=== PATIENT | male | born 1975 | race Caucasian/White ===

== ENCOUNTER 2020-03-13 22:35 | Emergency (ER) | payer SELFPAY ==
[2020-03-13 22:42] VITALS: BP 128/56; PULSE 99; RESP 24; TEMP 36.4; O2SAT 100; BMI 34.9
--- NOTE | 2020-03-13 22:48 | XR_ITS ---
WS: [id number] Exam: XR chest 1V portable [id number] Date/Time of Exam: 03/13/2020 11:09 PM Reason For Exam: Chest pain No priors. The lungs are clear and fully expanded. Normal cardiomediastinal structures and regional bony element s. Minimal plaque atelectasis in the left base. XR/XR chest 1V portable [id number] IMPRESSION: 1. No acute cardiopulmonary finding.
--- NOTE | 2020-03-13 22:48 | ECG_ITS ---
[facility] Test Date: 2020-03-13 Pat Name: Lane Israel Department: Room: Gender: Male Shingle Carrier: : 1975 Requested By: Danielle Butler Order Number: [id number] Reading MD: ADAM WATTS Measurements Intervals [place] Rate: 63 P: 23 PA: 150 QRS: 17 QRSD: 93 T: 35 QT: 373 QTc: 382 Interpretive Statements SINUS RHYTHM No previous ECG available for comparison Electronically Signed On 03-14-2020 19:37:49 MOTOCROSS RACER by ADAM WATTS [email or web address]
[2020-03-13 23:01] VITALS: BP 111/73; PULSE 80; RESP 24; O2SAT 91
[2020-03-13] MEDS: ondansetron 2 mg/ML SDV 2 mL 4 MG IVP (23:02)
[2020-03-13 23:03] VITALS: RESP 22
[2020-03-13] MEDS: famotidine 20 mg/2 mL INJ 40 MG IVP (23:03)
[2020-03-13] MEDS: morphine 4 mg/mL SDV 1 mL IVP (23:03)
[2020-03-13 23:08] LABS: Basophils # 0.1 10^3/uL (0.0-0.1); Basophils % 0.6 %; Eosinophils # 0.5 10^3/uL (0.0-0.8); Eosinophils % 4.4 %; Hematocrit 44.8 % (42.0-52.0); Hemoglobin 14.4 g/dL (11.7-16.6); Lymphocytes # 3.6 10^3/uL (0.8-4.8); Lymphocytes % 30.9 %; Mean Corpuscular HGB Conc 32.1 g/dL (30.0-36.0); Mean Corpuscular Hemoglobin 30.1 pg (28.0-34.0); Mean Corpuscular Volume 93.5 fL (80-94); Mean Platelet Volume 11.2 fL (7.4-10.4); Monocytes % 8.6 %; Neutrophils # 6.35 10^3/uL (1.8-7.7); Neutrophils % 55.2 %; Nucleated Red Blood Cells % 0 %; Platelet Count 222 10^3/cmm (130-400); Red Blood Count 4.79 10^6/uL (4.1-5.3); Red Cell Distribution Width 13.3 % (12.1-15.1); White Blood Count 11.5 10^3/uL (4.0-10.0)
[2020-03-13 23:21] LABS: D Dimer 0.57 ug/mIFEU (0-0.59)
[2020-03-13 23:25] LABS: Troponin(5th) Baseline 6 ng/L (0-15)
[2020-03-13 23:28] LABS: INR 0.92 (0.8-1.2)
[2020-03-13 23:31] VITALS: BP 101/65; PULSE 83; RESP 27; O2SAT 92
[2020-03-13 23:31] LABS: Lactic Sepsis W/Reflex 1.4 mmol/L (0.5-2.2)
--- NOTE | 2020-03-13 23:34 | CTR_ITS ---
PROCEDURE INFORMATION: Exam: CT Chest With Contrast Exam date and time: 03/13/2020 11:51 PM Age: 45 years old Clinical indication: Abdominal pain; Localized; Left-sided chest pain; Additional info: Severe left sided chest pain TECHNIQUE: Imaging protocol: Computed tomography of the chest with intravenous contrast. Radiation optimization: All CT scans at this facility use at least one of these dose optimization techniques: automated exposure control; mA and/or kV adjustment per patient size (includes targeted exams where dose is matched to clinical indication); or iterative reconstruction. Contrast material: OMNI 300; Contrast volume: 95 ml; Contrast route: INTRAVENOUS (IV); COMPARISON: No relevant prior studies available. RADIATION DOSE METRICS: Total DLP (mGy-cm): 2276.34 FINDINGS: Lungs: There is ill-defined dependent opacity in both lower lobes. There is similar opacity in the inferior lingula. There is a 4 mm noncalcified nodule in the right middle lobe on axial series 4, image 26. Pleural space: Unremarkable. No pneumothorax. No pleural effusion. Heart: Heart size is normal. There is no pericardial effusion. Pulmonary arteries: The central pulmonary arteries are unremarkable. Aorta: The aorta is unremarkable. There is no aneurysm. Lymph nodes: There is no mediastinal or hilar lymphadenopathy. Bones/joints: Unremarkable. No acute fracture. Soft tissues: The extrathoracic soft tissues are unremarkable. IMPRESSION: 1. Opacity in the lower lungs bilaterally. Probable subsegmental atelectasis. Superimposed infection cannot be unequivocally excluded. 2. 4 mm right middle lobe pulmonary nodule. For patients at low risk (minimal or absent history of smoking and of other known risk factors), no routine follow-up is indicated. For patients at high risk (history of smoking or of other known risk factors), consider optional CT Chest at 12 months. (Reference: Chey) REFERENCES: Chey Guadarrama, et al. Guidelines for Management of Incidental Pulmonary Nodules Detected on CT Images: From the Fleischner Society 2017. Radiology. 2017;284(1):228-243. PROCEDURE INFORMATION: Exam: CT Abdomen And Pelvis With Contrast Exam date and time: 03/13/2020 11:51 PM Age: 45 years old Clinical indication: Abdominal pain; Localized; Left-sided chest pain; Additional info: Severe left sided chest pain TECHNIQUE: Imaging protocol: Computed tomography of the abdomen and pelvis with intravenous contrast. Radiation optimization: All CT scans at this facility use at least one of these dose optimization techniques: automated exposure control; mA and/or kV adjustment per patient size (includes targeted exams where dose is matched to clinical indication); or iterative reconstruction. Contrast material: OMNI 300; Contrast volume: 95 ml; Contrast route: INTRAVENOUS (IV); COMPARISON: No relevant prior studies available. RADIATION DOSE METRICS: Total DLP (mGy-cm): 2276.34 FINDINGS: Liver: The liver is normal. Gallbladder and bile ducts: The gallbladder is normal. There is no biliary dilation. Pancreas: The pancreas is unremarkable. Spleen: Splenic size is normal. There are scattered calcifications consistent with healed granulomas. Adrenal glands: The adrenal glands are unremarkable. Kidneys and ureters: The kidneys are unremarkable. No hydronephrosis or stones. No ureteral dilation. Stomach and bowel: The stomach is decompressed, preventing meaningful evaluation of wall thickness. The small bowel is nondilated. The colon is unremarkable. Appendix: The appendix is normal. Intraperitoneal space: There is no free air or significant intraperitoneal free fluid. Vasculature: There is mild aortic atherosclerotic disease. The portal, splenic and superior mesenteric veins are patent. Lymph nodes: There is no lymphadenopathy in the retroperitoneum, mesentery, pelvis or inguinal regions. Urinary bladder: The urinary bladder is unremarkable. Reproductive: The prostate and seminal vesicles are unremarkable. Bones/joints: Bones are unremarkable. Soft tissues: The abdominal wall is intact. CT/CT chest abd pel w con* IMPRESSION: No acute findings. Radiation Dose CTDIVOL = (mGy): DLP = 2276.34~2276.34 (mGy-cm)
[2020-03-13 23:35] LABS: Alanine Aminotransferase 41 U/L (0-41); Albumin Level 4.4 g/dL (3.5-5.2); Alkaline Phosphatase 119 IU/L (40-130); Anion Gap 14.3 (5-19); Aspartate Amino Transferase 26 U/L (0-40); Blood Urea Nitrogen 12 mg/dL (6-20); Calcium 9.4 mg/dL (8.5-10.5); Carbon Dioxide 30 mmol/L (22-29); Chloride 99 mmol/L (98-107); Creatinine Clr Calc Pharmacy 136.5137; Globulin 2.5 g/dL (1.3-4.6); Glomerular Filtration Rate 104.5 mL/min (90-130); Glucose 98 mg/dL (65-115); Lipase 31 U/L (13-60); NT Pro B Type Natriuretic Pept 14 pg/mL (0-125); Osmolality Calculated 288 mOsm/kg (285-295); Potassium 4.3 mmol/L (3.5-5.1); Sodium 139 mmol/L (136-145); Total Bilirubin 0.3 mg/dL (0.15-1.2); Total Protein 6.9 g/dL (6.6-8.7)
[2020-03-14 00:01] VITALS: BP 93/60; PULSE 87; RESP 22; O2SAT 94
[2020-03-14] MEDS: iohexol 300 mg/mL 100 mL Btl IV (00:49)
[2020-03-14 01:00] VITALS: BP 118/73; RESP 20; O2SAT 95
[2020-03-14 01:33] LABS: Troponin 5 2HR Delta 0 ABS# (0-10)
[2020-03-14] MEDS: ketorolac 30 mg/mL INJ 15 MG IVP (02:08)
[2020-03-14] MEDS: doxycycline 100 mg Tablet PO (02:10)
[2020-03-14 02:24] VITALS: BP 99/73; PULSE 78; RESP 21; O2SAT 93
--- NOTE | 2020-03-14 02:34 | W.ED.CHESTPA ---
HPI - Chest Pain General: Chief Complaint: Chest Pain Stated Complaint: Chest pain /breathing issues Time Seen by Provider: 03/13/20 22:48 History of Present Illness: HPI narrative: This patient is a 45-year-old male who presents with severe left-sided chest pain. He said it started out of the blue while he was just sitting and resting. He said he does not feel like he can breathe because the pain is worse when he tries to take a deep breath. He is never had anything like this before. He reports a history of bronchitis and frequent cough. He is a smoker. He just got out of [facility] and does not have a primary care doctor yet. He denies a history of heart attacks or blood clots. He does complain of feeling nauseous. He is pale and uncomfortable appearing MD complaint: chest pain Onset (ago): hour(s) (2) Timing of current episode: constant Prior episodes: No Onset: during rest Pain location: left chest Pain radiation: none Quality: sharp Relieving factors: nothing Exacerbating factors: inspiration, supine, palpation and movement Associated symptoms: Reports diaphoresis, dyspnea and nausea Treatment prior to arrival: none Review of Systems General: Reports: 10 or more systems reviewed and unremarkable except in HPI and below Const: Reports: diaphoresis Eyes: Denies: change in vision ENMT: Denies: odynophagia Card: Reports: chest pain; Denies: swelling of feet/ankles Resp: Reports: dyspnea and productive cough (Chronic, due to smoking); Denies: non-productive cough GI: Reports: nausea : Denies: flank pain Musc: Denies: neck pain or back pain Skin/Breast: Denies: rash Neuro: Denies: headache(s), numbness in extremities or weakness in extremities Omar/Lymph: Denies: easy bruising or easy bleeding PFSH ED PFSH: Social History Current gender identity: Male Physical Exam Const: COMMON NORMALS: patient oriented x3 and alert GENERAL APPEARANCE: cooperative, in distress and anxious HENMT: HEAD & SCALP: normal to inspection FACE & SINUS: normal facial exam Eye: GENERAL EYE: appearance normal, both eyes and all related structures Neck/C-Spine: COMMON NORMALS: supple, no meningeal signs and no JVD Chest: COMMONS NORMALS: normal inspection of the chest Resp: COMMON NORMALS: normal respiratory effort and clear to auscultation bilaterally EFFORT & INSPECTION: Yes other (Splinting) AUSCULTATION: clear to auscultation bilaterally and diminished lung sounds Cardio: COMMON NORMALS: no JVD, regular rate, regular rhythm and No murmurs present (Cardio) RATE: regular rate RHYTHM: regular rhythm GI: COMMON NORMALS: Normal to inspection, nondistended, normoactive bowel sounds present, Soft to palpation and non-tender INSPECTION: Yes normal to inspection AUSCULTATION: Yes normoactive bowel sounds PALPATION: Yes Soft to palpation Back/Pelvis: COMMON NORMALS: thoracic and lumbar spine normal to inspection Extremity: COMMON NORMALS: normal to inspection NARRATIVE EXTREMITY EXAM: No edema or calf tenderness Neuro: COMMON NORMALS: patient oriented x3, moves all extremities, no focal motor deficits and no sensory deficits noted SENSORIUM/ORIENTATION: Yes alert MENINGEAL SIGNS: Yes no meningeal signs Psych: COMMON NORMALS: mental status grossly normal, cooperative and normal affect ATTITUDE: Yes agitated Skin: COMMON NORMALS: no rashes or lesions noted and turgor normal GENERAL SKIN EXAM: no rashes or lesions noted and turgor normal Course ED course: The patient was immediately brought back to room 11. He was given IV morphine and Zofran and later IV Toradol. He reported some improvement with the morphine. He later had some improvement after the Toradol. Work-up was notable for normal EKGs and troponins. A CT of the chest abdomen and pelvis was done and this did not reveal any obvious cause for his symptoms. He does have some atelectasis and the radiologist notes that infection cannot be ruled out. Because of that and his history of smoking about a put him on some doxycycline. No abnormalities in the abdomen. He did have a nodule in his chest that will require follow-up in 12 months and I discussed this with the patient. Clinically he has pleurisy. He will be put on naproxen as well as the doxycycline. I have asked the showcase maker to consult with him to assist in finding a primary care physician. He understands return to the ER if new or worse symptoms. Vital Signs: Vital signs: Vital Signs Temperature 97.5 F L 03/13/20 22:42 Pulse Rate 78 03/14/20 02:24 Respiratory Rate 21 H 03/14/20 02:24 Blood Pressure 99/73 03/14/20 02:24 Pulse Oximetry 93 03/14/20 02:24 MDM - Chest Pain Lab Data: Labs: Lab Results 03/13/20 03/13/20 03/13/20 Range/Units 22:52 22:52 22:52 WBC 11.5 H (4.0-10.0) 10^3/ uL RBC 4.79 (4.1-5.3) 10^6/u L Hgb 14.4 (11.7-16.6) g/dL Hct 44.8 (42.0-52.0) % MCV 93.5 (80-94) fL MCH 30.1 (28.0-34.0) pg MCHC 32.1 (30.0-36.0) g/dL RDW 13.3 (12.1-15.1) % Plt Count 222 (130-400) 10^3/c mm MPV 11.2 H (7.4-10.4) fL Neut % (Auto) 55.2 % Lymph % (Auto) 30.9 % [place] % (Auto) 8.6 % Eos % (Auto) 4.4 % Baso % (Auto) 0.6 % Neut # (Auto) 6.35 (1.8-7.7) 10^3/u L Lymph # (Auto) 3.6 (0.8-4.8) 10^3/u L [place] # (Auto) 1.0 H (0.2-0.9) 10^3/u L Eos # (Auto) 0.5 (0.0-0.8) 10^3/u L Baso # (Auto) 0.1 (0.0-0.1) 10^3/u L Nucleated RBC % (a uto) 0 % Nucleated RBCs # 0.0 /100WBC PT 12.60 (12.1-14.9) SECO NDS INR 0.92 (0.8-1.2) D-Dimer 0.57 (0-0.59) ug/mIFE U Sodium 139 (136-145) mmol/L Potassium 4.3 (3.5-5.1) mmol/L Chloride 99 (98-107) mmol/L Carbon Dioxide 30 H (22-29) mmol/L Anion Gap 14.3 (5-19) BUN 12 (6-20) mg/dL Creatinine 0.8 (0.7-1.2) mg/dL GFR Calculation 104.5 (90-130) mL/min Glucose 98 (65-115) mg/dL Calculated Osmolal ity 288 (285-295) mOsm/k g Lactic Acid (0.5-2.2) mmol/L Calcium 9.4 (8.5-10.5) mg/dL Total Bilirubin 0.3 (0.15-1.2) mg/dL AST 26 (0-40) U/L ALT 41 (0-41) U/L Alkaline Phosphata se 119 (40-130) IU/L Troponin T Baselin e (0-15) ng/L Troponin T 120 Min rosy (0-15) ng/L Delta Troponin T (0-10) ABS# NT-Pro-B Natriuret Pep 14 (0-125) pg/mL Total Protein 6.9 (6.6-8.7) g/dL Albumin 4.4 (3.5-5.2) g/dL Globulin 2.5 (1.3-4.6) g/dL Lipase 31 (13-60) U/L 03/13/20 03/13/20 03/14/20 Range/Units 22:52 23:00 01:00 WBC (4.0-10.0) 10^3/ uL RBC (4.1-5.3) 10^6/u L Hgb (11.7-16.6) g/dL Hct (42.0-52.0) % MCV (80-94) fL MCH (28.0-34.0) pg MCHC (30.0-36.0) g/dL RDW (12.1-15.1) % Plt Count (130-400) 10^3/c mm MPV (7.4-10.4) fL Neut % (Auto) % Lymph % (Auto) % [place] % (Auto) % Eos % (Auto) % Baso % (Auto) % Neut # (Auto) (1.8-7.7) 10^3/u L Lymph # (Auto) (0.8-4.8) 10^3/u L [place] # (Auto) (0.2-0.9) 10^3/u L Eos # (Auto) (0.0-0.8) 10^3/u L Baso # (Auto) (0.0-0.1) 10^3/u L Nucleated RBC % (a uto) % Nucleated RBCs # /100WBC PT (12.1-14.9) SECO NDS INR (0.8-1.2) D-Dimer (0-0.59) ug/mIFE U Sodium (136-145) mmol/L Potassium (3.5-5.1) mmol/L Chloride (98-107) mmol/L Carbon Dioxide (22-29) mmol/L Anion Gap (5-19) BUN (6-20) mg/dL Creatinine (0.7-1.2) mg/dL GFR Calculation (90-130) mL/min Glucose (65-115) mg/dL Calculated Osmolal ity (285-295) mOsm/k g Lactic Acid 1.4 (0.5-2.2) mmol/L Calcium (8.5-10.5) mg/dL Total Bilirubin (0.15-1.2) mg/dL AST (0-40) U/L ALT (0-41) U/L Alkaline Phosphata se (40-130) IU/L Troponin T Baselin e 6 (0-15) ng/L Troponin T 120 Min rosy 6.00 (0-15) ng/L Delta Troponin T 0 (0-10) ABS# NT-Pro-B Natriuret Pep (0-125) pg/mL Total Protein (6.6-8.7) g/dL Albumin (3.5-5.2) g/dL Globulin (1.3-4.6) g/dL Lipase (13-60) U/L Discharge Plan Discharge Patient Disposition: Home Clinical Impression: Pleurisy, Pulmonary nodule Condition: Stable Prescriptions: New Naprosyn 500 mg tablet 500 mg PO Q12H PRN (Reason: pain) Qty: 20 RF: 0 doxycycline hyclate 100 mg capsule 100 mg PO BID 10 Days Qty: 20 RF: 0 Discharge Orders: Discharge Order (Routine); Ordered 03/14/20 Ordered By: Danielle Parks Discharge Diet: Usual diet Discharge Activity: Resume usual activity Patient Instructions: Pleurisy (ED), Pneumonia (ED) Activity Restrictions/Additional Instructions: Return to the ER if worsening pain, shortness of breath, vomiting or any other new or concerning symptoms. Use the naproxen as prescribed, twice a day for pain. Rest. Continue to try to quit smoking. Take the antibiotics as prescribed as well. Our showcase maker should contact to to assist with finding a primary care provider. Your CT today showed a pulmonary nodule and you should have another CT of your chest in about a year to make sure that has not changed. Coding Level of Care Code ED Prototype Carpenter for Ghanshyam Nathan
--- NOTE | 2020-03-14 10:00 | DCPLANNER ---
gardening manager had message to speak with patient about getting established with a primary care physician. gardening manager called patient and he stated that he would like to schedule a follow up appointment with Dr. Ludwig. gardening manager called [facility], spoke with Raegan, a follow up appointment is scheduled for Friday, March 20, 2020 at 9:[address] Ludwig. gardening manager called patient and gave patient the appointment information. Patient stated that he would attend the appointment.
--- NOTE | 2020-04-10 14:32 | DCPLANNER ---
Patient had a follow up appointment scheduled for 03.20.20 with [facility] - patient did attend appointment.
== END 2020-03-14 02:34 | disposition home or self-care (01) ==
PROVIDERS: Emergency Provider Emergency Medicine
DX: R09.1 Pleurisy (principal); R91.1 Solitary pulmonary nodule
CPT/HCPCS: 12345; 71045; 71260; 74177; 80053; 83605; 83690; 83880; 84484; 85025; 85378; 85610; 93005; 96374; 96375; 99283; 99284; J1885; J2270; J2405; J3490; Q9967

== ENCOUNTER → 2020-03-20 10:37 | Outpatient (BNVA) | payer SELFPAY | PROVIDERS: Visit Provider Family Medicine Adult Medicine | DX: R53.82 Chronic fatigue, unspecified (principal); R30.0 Dysuria; Z79.899 Other long term (current) drug therapy | CPT/HCPCS: 84443 ==

== ENCOUNTER 2020-10-09 19:33 | Emergency (ER) | payer SELFPAY ==
[2020-10-09 19:41] VITALS: PULSE 92; RESP 24; TEMP 36.3; O2SAT 98; BMI 35.7
[2020-10-09] MEDS: ketorolac 30 mg/mL INJ 15 MG IVP (20:35)
[2020-10-09] MEDS: diphenhydrAMINE 50 mg/mL SDV 1mL 25 MG IVP (20:35)
[2020-10-09 20:37] LABS: Basophils # 0.1 10^3/uL (0.0-0.1); Basophils % 0.8 %; Eosinophils # 0.5 10^3/uL (0.0-0.8); Eosinophils % 3.8 %; Hematocrit 42.9 % (42.0-52.0); Lymphocytes # 3.9 10^3/uL (0.8-4.8); Lymphocytes % 32.6 %; Mean Corpuscular Hemoglobin 31.1 pg (28.0-34.0); Mean Platelet Volume 11.5 fL (7.4-10.4); Monocytes # 0.8 10^3/uL (0.2-0.9); Monocytes % 6.9 %; Neutrophils # 6.66 10^3/uL (1.8-7.7); Neutrophils % 55.6 %; Nucleated Red Blood Cells % 0 %; Platelet Count 168 10^3/cmm (130-400); Red Blood Count 4.82 10^6/uL (4.1-5.3); Red Cell Distribution Width 12.3 % (12.1-15.1)
[2020-10-09] MEDS: sodium chloride 0.9% 1,000 ML 999 ML IV (20:37)
[2020-10-09] MEDS: lidocaine 2% viscous 1.667 ML, diphenhydrAMINE oral liq 4.165 MG, aluminum-mag hydrox-s... MUCOUS MEM (20:38)
--- NOTE | 2020-10-09 20:40 | ED_ITS ---
HPI - Allergic Reaction General: Chief complaint: Allergic Reaction Stated complaint: ALLERGIC REACTION Time Seen by Provider: 10/09/20 19:52 History of Present Illness: HPI narrative: The patient is a 45-year-old male who comes to the ER complaining of severe tongue and lip pain causing him to be short of breath. He says he is homeless and living in a house with a tour the floors out. He also states he has not had his psychiatric medications in months due to being homeless. He has been living with a friend on the couch. He has ulcerations to his lips and tongue that appear to be herpetic in nature. Associated symptoms: Deny abdominal pain, dizziness or tongue swelling Review of Systems General: Reports: 10 or more systems reviewed and unremarkable except in HPI and below Const: Denies: fatigue Eyes: Denies: change in vision, blurry vision or eye redness ENMT: Reports: other (Tongue and lip pain); Denies: throat pain, swelling of lips/tongue, ear or mastoid pain or nasal congestion Card: Denies: chest pain, palpitations, irregular heart rhythm, edema, dyspnea on exertion or orthopnea Resp: Denies: dyspnea, productive cough or non-productive cough GI: Denies: abdominal pain, diarrhea or GI cramping : Denies: flank pain, urinary frequency or urinary urgency Musc: Denies: neck pain, back pain, extremity pain, joint pain, joint redness, limited range of motion or muscle weakness Skin/Breast: Denies: rash, pruritus, erythema, skin pain or skin tenderness Neuro: Denies: headache(s), numbness in extremities, weakness in extremities, sensory changes, difficulty walking, dizziness, confusion or Slurred speech present Psych: Denies: anxiety or depression Endo: Denies: polyuria All/Imm: Denies: urticaria, throat swelling or tongue swelling PFSH ED PFSH: Medical History (Updated 10/09/20 @ 21:39 by Anthony Gee MD) Anxiety Bipolar 1 disorder Bipolar 2 disorder Bronchitis COPD (chronic obstructive pulmonary disease) with chronic bronchitis Hypoxia, sleep related [place] use Lumbar disc disease with radiculopathy Family History Other Cancer Psychiatric illness Social History Smoking and tobacco status: current every day smoker cigarettes Packs smoked per day: 0.5 and smokeless tobacco Smokeless tobacco user: snuff Alcohol intake: current Alcohol intake frequency: holidays/special occasions only Marital status: Number of children: 0 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 Current gender identity: Male Physical Exam Const: COMMON NORMALS: no acute distress, average body habitus, patient oriented x3, no limitations, healthy appearing, alert and well nourished GENERAL APPEARANCE: cooperative, comfortable, well kempt and well developed ORIENTATION/CONSCIOUSNESS: Yes awake, Yes oriented to person, Yes oriented to place and Yes oriented to time HENMT: COMMON NORMALS: normocephalic, external ears normal and Normal external nose present HEAD & SCALP: normal to inspection and normocephalic NOSE: Normal external nose present EXTERNAL EAR: Yes external ears normal MOUTH: Normal oral and palatal mucosa present THROAT: posterior oropharynx normal OTHER: Herpetic stomatitis and herpes labialis. No significant swelling of tongue. Airway clear. Eye: COMMON NORMALS: Equal, round and reactive pupils present and EOMs intact bilaterally GENERAL EYE: appearance normal, both eyes and all related structures PUPIL: Yes Equal, round and reactive pupils present Neck/C-Spine: COMMON NORMALS: full ROM, no lymphadenopathy, no meningeal signs and no JVD GENERAL: Yes normal visual inspection Lymph: LYMPHATIC: no lymphadenopathy noted Chest: COMMONS NORMALS: normal inspection of the chest and normal palpation of entire chest wall Resp: COMMON NORMALS: normal respiratory effort, No retractions, No use of accessory muscles, clear to auscultation bilaterally and percussion normal EFFORT & INSPECTION: Yes able to speak in complete sentences AUSCULTATION: clear to auscultation bilaterally PERCUSSION: percussion normal Cardio: COMMON NORMALS: no JVD, regular rate, regular rhythm, S1 normal heart sound present, S2 normal heart sound present and Peripheral pulses 2+ throughout RATE: regular rate RHYTHM: regular rhythm HEART SOUNDS: S1 normal heart sound present and S2 normal heart sound present PERIPHERAL PULSES: Peripheral pulses 2+ throughout GI: COMMON NORMALS: Normal to inspection, nondistended, normoactive bowel sounds present, Soft to palpation, non-tender and no masses INSPECTION: Yes normal to inspection PALPATION: Yes Soft to palpation : COMMON NORMALS: Yes no CVA tenderness BLADDER/KIDNEY EXAM: Yes no CVA tenderness Back/Pelvis: COMMON NORMALS: no CVA tenderness, thoracic and lumbar spine normal to inspection, no thoracic nor lumbar tenderness and thoraco-lumbar ROM normal Extremity: COMMON NORMALS: normal to inspection, full ROM, capillary refill normal, no joint enlargement and no pedal edema GENERAL: Yes normal exam ex cept as noted Neuro: COMMON NORMALS: patient oriented x3, CN's II-XII intact bilaterally, moves all extremities, no focal motor deficits, no sensory deficits noted and gait normal SENSORIUM/ORIENTATION: Yes alert, Yes oriented to person, Yes oriented to place and Yes oriented to time MENINGEAL SIGNS: Yes no meningeal signs Psych: COMMON NORMALS: mental status grossly normal, Normal thought process present, cooperative, normal affect and speech normal APPEARANCE: Yes well kempt ATTITUDE: Yes calm SPEECH: Yes normal speech THOUGHT PROCESS: Normal thought process present Skin: COMMON NORMALS: no rashes or lesions noted GENERAL SKIN EXAM: no rashes or lesions noted Course Vital Signs: Vital signs: Vital Signs Temperature 97.3 F L 10/09/20 19:41 Pulse Rate 82 10/09/20 21:23 Respiratory Rate 18 10/09/20 21:23 Blood Pressure 132/75 10/09/20 21:23 Pulse Oximetry 92 10/09/20 21:23 MDM - Allergic Reaction MDM Narrative: Medical decision making narrative: The patient has a significant herpes stomatitis and labialis infection. He was given Magic mouthwash with improvement of his pain and swelling. He says he is breathing much better after that and talking as well. He is drinking liquids well here. Stable for discharge. Send him home with a prescription for acyclovir and Magic mouthwash as well as a refill of his inhalers. Recommended he follow-up with psych and primary care physician within a week. ER with worsening symptoms at any time Lab Data: Labs: Lab Results 10/09/20 10/09/20 10/09/20 Range/Units 20:30 20:30 20:30 WBC 12.0 H (4.0-10.0) 10^3/ uL RBC 4.82 (4.1-5.3) 10^6/u L Hgb 15.0 (11.7-16.6) g/dL Hct 42.9 (42.0-52.0) % MCV 89.0 (80-94) fL MCH 31.1 (28.0-34.0) pg MCHC 35.0 (30.0-36.0) g/dL RDW 12.3 (12.1-15.1) % Plt Count 168 (130-400) 10^3/c mm MPV 11.5 H (7.4-10.4) fL Neut % (Auto) 55.6 % Lymph % (Auto) 32.6 % [place] % (Auto) 6.9 % Eos % (Auto) 3.8 % Baso % (Auto) 0.8 % Neut # (Auto) 6.66 (1.8-7.7) 10^3/u L Lymph # (Auto) 3.9 (0.8-4.8) 10^3/u L [place] # (Auto) 0.8 (0.2-0.9) 10^3/u L Eos # (Auto) 0.5 (0.0-0.8) 10^3/u L Baso # (Auto) 0.1 (0.0-0.1) 10^3/u L Nucleated RBC % (a uto) 0 % Nucleated RBCs # 0.0 /100WBC Sodium 139 (136-145) mmol/L Potassium 3.9 (3.5-5.1) mmol/L Chloride 103 (98-107) mmol/L Carbon Dioxide 22 (22-29) mmol/L Anion Gap 17.9 (5-19) BUN 11 (6-20) mg/dL Creatinine 0.9 (0.7-1.2) mg/dL GFR Calculation 91.3 (90-130) mL/min Glucose 81 (65-115) mg/dL Calculated Osmolal ity 286 (285-295) mOsm/k g Lactate 2.6 H (0.5-2.2) mmol/L Calcium 9.7 (8.5-10.5) mg/dL Total Bilirubin 0.3 (0.15-1.2) mg/dL AST 18 (0-40) U/L ALT 18 (0-41) U/L Alkaline Phosphata se 105 (40-130) IU/L Total Protein 7.1 (6.6-8.7) g/dL Albumin 4.2 (3.5-5.2) g/dL Globulin 2.9 (1.3-4.6) g/dL Discharge Plan Discharge Patient Disposition: Home Clinical Impression: Herpes stomatitis Condition: Stable Prescriptions: New acyclovir 400 mg tablet 400 mg PO Q8H Qty: 30 RF: 0 Continued hydrocodone-acetaminophen 5-325 mg tablet 1 tab PO Q6H PRN (Reason: pain) 7 Days Qty: 28 RF: 0 diclofenac sodium 25 mg tablet,delayed release (DR/EC) 25 mg PO BID Qty: 30 RF: 1 lithium carbonate 300 mg tablet extended release 300 mg PO BEDTIME RF: 0 trazodone 150 mg tablet 150 mg PO BEDTIME RF: 0 Benadryl 25 mg Capsule 25 mg PO QID PRN (Reason: Allergy Symptoms) RF: 0 ibuprofen 200 mg Tablet 200 - 400 mg PO Q4H PRN (Reason: PAIN/FEVER) RF: 0 albuterol sulfate 90 mcg/actuation HFA aerosol inhaler 2 puff inhalation Q6H PRN (Reason: shortness of breath or wheezing) Qty: 18 RF: 5 buspirone 15 mg tablet 15 mg PO BID PRN (Reason: anxiety) 30 Days Qty: 60 RF: 3 Symbicort 160-4.5 mcg/actuation HFA aerosol inhaler 2 puff inhalation BID Qty: 10.2 RF: 5 Discharge Orders: Discharge ED (Routine); Ordered 10/09/20 Ordered By: Anthony Gee Referrals: David Ludwig MD [Primary Care Provider] - Discharge Diet: Advance as tolerated Discharge Activity: Resume usual activity Patient Instructions: Opioid Safety, Oral Herpes Activity Restrictions/Additional Instructions: You have a herpetic infection of your mouth and tongue. Please take the acyclovir to help speed up recovery from this infection and use the Magic mouthwash to help you eat meals. Return to the ER with worsening symptoms or difficulty breathing or increased swelling. Otherwise follow-up with your primary care physician in a few days to monitor improvement of your symptoms. Also follow-up with psychiatry this week to get refills on your psychiatric medications. Coding Level of Care Code ED Clearance Coordinator for Ghanshyam Nathan
[2020-10-09 20:50] VITALS: BP 135/83; PULSE 82; RESP 18; O2SAT 98
[2020-10-09 21:10] LABS: Lactate (Lactic Acid level) 2.6 mmol/L (0.5-2.2)
[2020-10-09 21:12] LABS: Alanine Aminotransferase 18 U/L (0-41); Albumin Level 4.2 g/dL (3.5-5.2); Alkaline Phosphatase 105 IU/L (40-130); Blood Urea Nitrogen 11 mg/dL (6-20); Calcium 9.7 mg/dL (8.5-10.5); Carbon Dioxide 22 mmol/L (22-29); Chloride 103 mmol/L (98-107); Globulin 2.9 g/dL (1.3-4.6); Glomerular Filtration Rate 91.3 mL/min (90-130); Glucose 81 mg/dL (65-115); Osmolality Calculated 286 mOsm/kg (285-295); Sodium 139 mmol/L (136-145); Total Bilirubin 0.3 mg/dL (0.15-1.2); Total Protein 7.1 g/dL (6.6-8.7)
[2020-10-09 21:23] VITALS: BP 132/75; PULSE 82; RESP 18; O2SAT 92
[2020-10-09 21:37] LABS: Anion Gap 17.9 (5-19); Aspartate Amino Transferase 18 U/L (0-40); Potassium 3.9 mmol/L (3.5-5.1)
[2020-10-09] MEDS: acyclovir 400 mg Tablet PO (22:14)
[2020-10-09 22:21] VITALS: BP 100/64; PULSE 90; RESP 16; O2SAT 98
--- NOTE | 2020-10-10 10:30 | DCPLANNER ---
manager convention had message to schedule a follow up appointment for patient with a primary care physician and [facility]. manager convention spoke with patient, he stated that he would like help in getting established with a primary care. manager convention called [facility], spoke with Mckayla, gave clinic patients information. A follow up appointment was scheduled for Thursday, October 15, 2020 at 10:[address] Ludwig. manager convention also called [facility] scheduling, spoke with Ct, a follow up appointment was scheduled for September at 11:[address] Bray. manager convention called patient and gave patient information for both appointments. manager convention also gave patient the phone numbers for the clinics, so that he could call and cancel the appointments if needed. manager convention explained to patient that he would need to call and cancel appointments and not no show the appointments.
--- NOTE | 2020-11-22 07:24 | DCPLANNER ---
Patient had a follow up appointment scheduled for 10.11.20 at [facility] - patient did attend appointment. Patient had a follow up appointment scheduled for 10.15.[address] Ludwig at [facility] to establish care - patient did attend appointment.
== END 2020-10-09 22:22 | disposition home or self-care (01) ==
PROVIDERS: Emergency Provider Family Medicine; PCP Family Medicine Adult Medicine
DX: B00.2 Herpesviral gingivostomatitis and pharyngotonsillitis (principal); J44.9 Chronic obstructive pulmonary disease, unspecified; F17.210 Nicotine dependence, cigarettes, uncomplicated
CPT/HCPCS: 80053; 83605; 85025; 96361; 96374; 96375; 99284; J1200; J1885; J7030; J8499

== ENCOUNTER 2020-11-15 17:57 | Emergency (ER) | payer SELFPAY ==
[2020-11-15 18:07] VITALS: BP 120/78; PULSE 97; RESP 18; TEMP 37.3; O2SAT 97; BMI 30.9
--- NOTE | 2020-11-15 18:48 | W.ED.EXTPRO ---
HPI - Extremity Problem General: Chief complaint: Extremity Injury, Upper Stated complaint: FINGER NUMBNESS/TINGLING Time Seen by Provider: 11/15/20 18:48 History of Present Illness: HPI Narrative: 45-year-old male patient comes in with tenderness and redness to the nail area of the left ring finger. Patient is alert and oriented. Patient reporting cleaning out a house about a week ago and got something under his nail. Patient was able to remove the splinter from under his nail but over the last 2 days he has noticed some redness and tenderness to the nail bed. Patient appears well. Patient appears no acute distress. Review of Systems General: Reports: 10 or more systems reviewed and unremarkable except in HPI and below Musc: Reports: other (Fourth digit nail redness and swelling.) PFSH ED PFSH: Medical History Anxiety Bipolar 1 disorder Bipolar 2 disorder Bronchitis COPD (chronic obstructive pulmonary disease) with chronic bronchitis Hypoxia, sleep related [place] use Lumbar disc disease with radiculopathy Family History Other Cancer Psychiatric illness Social History Smoking and tobacco status: current every day smoker cigarettes Packs smoked per day: 0.5 and smokeless tobacco Smokeless tobacco user: snuff Alcohol intake: current Alcohol intake frequency: holidays/special occasions only Marital status: Number of children: 0 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 Current gender identity: Male Physical Exam Const: COMMON NORMALS: no acute distress and patient oriented x3 GENERAL APPEARANCE: cooperative HENMT: COMMON NORMALS: normocephalic and Normal external nose present HEAD & SCALP: normal to inspection and normocephalic NOSE: Normal external nose present MOUTH: Normal oral and palatal mucosa present Eye: GENERAL EYE: appearance normal, both eyes and all related structures Neck/C-Spine: COMMON NORMALS: full ROM Chest: COMMONS NORMALS: normal inspection of the chest Resp: COMMON NORMALS: normal respiratory effort EFFORT & INSPECTION: Yes able to speak in complete sentences Cardio: COMMON NORMALS: regular rate and regular rhythm RATE: regular rate RHYTHM: regular rhythm GI: COMMON NORMALS: non-tender Extremity: NARRATIVE EXTREMITY EXAM: Redness and swelling is noted to the distal finger of the fourth digit on the left hand. Patient has good range of motion, symptoms are very meniscal minimal. No sign of foreign body is noted. No sign of tenosynovitis is noted. Neuro: COMMON NORMALS: patient oriented x3 and moves all extremities Psych: COMMON NORMALS: mental status grossly normal and cooperative Skin: COMMON NORMALS: no rashes or lesions noted GENERAL SKIN EXAM: no rashes or lesions noted Course Vital Signs: Vital signs: Vital Signs Temperature 99.2 F 11/15/20 18:07 Pulse Rate 97 11/15/20 18:07 Respiratory Rate 18 11/15/20 18:07 Blood Pressure 120/78 11/15/20 18:07 Pulse Oximetry 97 11/15/20 18:07 MDM - Extremity (Nontraumatic) MDM Narrative: Medical decision making narrative: Patient comes in with for some redness and swelling to the fourth digit of the left hand. On exam patient has some mild swelling and redness to the distal finger of the left hand. Patient has good range of motion of the hand. No significant purulent collection of fluid is noted. No sign of foreign body is noted. Differential diagnosis includes cellulitis, paronychia, tenosynovitis, retained foreign body. No sign of foreign body is noted. Patient does have some mild redness and swelling either significant pain a cellulitis or paronychia. We will go ahead and treat with Augmentin and medication for pain. Patient was agreeable to plan. Patient knows to return for worsening symptoms or new concerns. Discharge Plan Discharge Patient Disposition: Home Clinical Impression: Paronychia of finger of left hand Condition: Stable Prescriptions: New Augmentin 875-125 mg tablet 1 tab PO BID Qty: 14 RF: 0 hydrocodone-acetaminophen 5-325 mg tablet 1 tab PO Q6H PRN (Reason: pain (scale score 7-10)) Qty: 6 RF: 0 ibuprofen 800 mg tablet 800 mg PO TID PRN (Reason: pain) Qty: 20 RF: 0 No Action Lidocaine Viscous 2 % solution 1 applic mucous membrane QID Qty: 100 RF: 1 Benadryl 25 mg Capsule 25 mg PO QID PRN (Reason: Allergy Symptoms) RF: 0 ibuprofen 200 mg Tablet 200 - 400 mg PO Q4H PRN (Reason: PAIN/FEVER) RF: 0 acyclovir 400 mg tablet 400 mg PO Q8H Qty: 30 RF: 0 albuterol sulfate 90 mcg/actuation HFA aerosol inhaler 2 puff inhalation Q6H PRN (Reason: shortness of breath or wheezing) Qty: 18 RF: 5 Discharge Orders: Discharge ED (Routine); Ordered 11/15/20 Ordered By: Junito Clinton Referrals: David Ludwig MD [Primary Care Provider] - Discharge Diet: Usual diet Discharge Activity: Increase activity as tolerated Patient Instructions: Paronychia (ED), Opioid Safety Activity Restrictions/Additional Instructions: Warm water soaks. Take antibiotic as directed. Use acetaminophen and ibuprofen to control pain. Use hydrocodone for breakthrough pain. Follow-up with primary care for further instruction. Return to the ER for worsening symptoms or new concerns. Coding Level of Care Code ED Astrobiologist for Ghanshyam Nathan
[2020-11-15] MEDS: HYDROcodone-acetaminophen 5-325 mg Tablet 1 TAB PO (19:12)
[2020-11-15] MEDS: amoxicillin-clav 875-125 mg Tablet 1 TAB PO (19:12)
[2020-11-15] MEDS: tetanus-dipt-pertussis 0.5 mL SDV IM (19:13)
== END 2020-11-15 19:15 | disposition home or self-care (01) ==
LOC: ER 18:57
PROVIDERS: Emergency Provider Nurse Practitioner Family; PCP Family Medicine Adult Medicine
DX: L03.012 Cellulitis of left finger (principal); J44.9 Chronic obstructive pulmonary disease, unspecified; F17.210 Nicotine dependence, cigarettes, uncomplicated
CPT/HCPCS: 90471; 90715; 99283

== ENCOUNTER 2021-07-29 19:35 | Emergency (ER) | payer MEDICAID, SELFPAY ==
[2021-07-29 19:48] VITALS: BP 125/75; PULSE 99; RESP 22; TEMP 36.6; O2SAT 98; BMI 29.5
--- NOTE | 2021-07-29 20:30 | ED_ITS ---
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 He states that today has been having increasing back pain from doing well at work he states he has a long history of chronic back pain he states his pain is sharp in nature and bilateral having muscle spasms he denies any difficulty walking states pain is worse with movement improved with rest denies any bowel or bladder incontinence. States pain currently is a 6 out of 10 Associated symptoms: Deny abdominal pain, chills, dysuria, fever(s), nausea or vomiting Review of Systems Const: Denies: fever(s), chills, body aches or change in appetite Eyes: Denies: blurry vision or eye discomfort ENMT: Denies: throat pain or dental pain Card: Denies: chest pain Resp: Denies: dyspnea GI: Denies: abdominal pain, nausea, vomiting or diarrhea : Denies: dysuria Musc: Reports: back pain; Denies: neck pain Skin/Breast: Denies: rash Neuro: Denies: headache(s) Psych: Denies: depression Omar/Lymph: Denies: easy bruising All/Imm: Denies: urticaria PFSH ED PFSH: Medical History Anxiety Bipolar 2 disorder BPH (benign prostatic hyperplasia) Bronchitis COPD (chronic obstructive pulmonary disease) with chronic bronchitis Hypoxia, sleep related [place] use Lumbar disc disease with radiculopathy Prostatitis, acute Psychiatric care Sexual dysfunction Smoker Family History Other Cancer Psychiatric illness Social History Smoking and tobacco status: current every day smoker cigarettes Packs smoked per day: 0.5 and smokeless tobacco Smokeless tobacco user: snuff Alcohol intake: current Alcohol intake frequency: holidays/special occasions only Marital status: Number of children: 0 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 Current gender identity: Male Physical Exam Const: COMMON NORMALS: no acute distress, patient oriented x3 and healthy a ppearing HENMT: COMMON NORMALS: normocephalic and atraumatic HEAD & SCALP: normocephalic and atraumatic Eye: COMMON NORMALS: Equal, round and reactive pupils present and EOMs intact bilaterally PUPIL: Yes Equal, round and reactive pupils present Neck/C-Spine: COMMON NORMALS: full ROM and supple Chest: COMMONS NORMALS: normal inspection of the chest and normal palpation of entire chest wall Resp: COMMON NORMALS: normal respiratory effort, No retractions, No use of accessory muscles and clear to auscultation bilaterally AUSCULTATION: clear to auscultation bilaterally Cardio: COMMON NORMALS: regular rate, regular rhythm and No murmurs present (Cardio) RATE: regular rate RHYTHM: regular rhythm GI: COMMON NORMALS: Normal to inspection, nondistended, normoactive bowel sounds present, Soft to palpation, non-tender and no masses PALPATION: Yes Soft to palpation Back/Pelvis: OTHER: Paraspinal tenderness in the lumbar spine no midline tenderness no saddle anesthesia Extremity: COMMON NORMALS: normal to inspection and full ROM Neuro: COMMON NORMALS: patient oriented x3, moves all extremities and no focal motor deficits Psych: COMMON NORMALS: mental status grossly normal, Normal thought process present and cooperative THOUGHT PROCESS: Normal thought process present Skin: COMMON NORMALS: no rashes or lesions noted and no wounds GENERAL SKIN EXAM: no rashes or lesions noted Course Vital Signs: Vital signs: Vital Signs Temperature 97.8 F 07/29/21 19:48 Pulse Rate 99 07/29/21 19:48 Respiratory Rate 22 H 07/29/21 19:48 Blood Pressure 125/75 07/29/21 19:48 Pulse Oximetry 98 07/29/21 19:48 MDM - Back Pain/Injury Medical Decision Making Patient presents here with low back pain likely lumbar strain from working he has no midline tenderness no saddle anesthesia no weakness no signs of cord compression he is stable for discharge is to follow-up with PCP and return if worsening he understands agrees to plan. Discharge Plan Discharge Patient Disposition: Home Clinical Impression: Strain of lumbar region Qualifiers: Encounter type: initial encounter Qualified Code(s): S39.012A - Strain of muscle, fascia and tendon of lower back, initial encounter Condition: Stable Prescriptions: New methocarbamol 750 mg tablet 750 mg PO Q6H PRN (Reason: spasms) Qty: 20 0RF Naprosyn 500 mg tablet 500 mg PO BID PRN (Reason: pain) Qty: 20 0RF No Action tadalafil [Cialis] 5 mg tablet 5 mg PO .QOD Qty: 30 3RF Rx Instructions: 1 tablet every other day as needed 340 B medication sulfamethoxazole-trimethoprim 800-160 mg tablet 1 tab PO BID Qty: 30 0RF albuterol sulfate 90 mcg/actuation HFA aerosol inhaler 2 puff inhalation Q6H PRN (Reason: shortness of breath or wheezing) Qty: 18 5RF Rx Instructions: 340 B meds Discharge Orders: Discharge ED (Routine); Ordered 07/29/21 Ordered By: Salvador Sofia Referrals: David Ludwig MD [Primary Care Provider] - 1-3 days Discharge Diet: Advance as tolerated Discharge Activity: Use walker/crutches as instructed Patient Instructions: Acute Low Back Pain (ED) Coding Level of Care Code ED Taker Off [place] for Ghanshyam Nathan Exam Comprehensive
[2021-07-29] MEDS: dexamethasone 10 mg/mL INJ IM (20:40)
[2021-07-29] MEDS: tizanidine 4 mg Tablet PO (20:40)
[2021-07-29] MEDS: ketorolac 60 mg/2 mL INJ IM (20:40)
[2021-07-29 21:03] VITALS: BP 144/78; O2SAT 98
== END 2021-07-29 21:04 | disposition home or self-care (01) ==
PROVIDERS: Emergency Provider Emergency Medicine; PCP Family Medicine Adult Medicine
DX: S39.012A Strain of muscle, fascia and tendon of lower back, initial encounter (principal); X58.XXXA Exposure to other specified factors, initial encounter; F17.210 Nicotine dependence, cigarettes, uncomplicated
CPT/HCPCS: 96372; 99283; J1100; J1885

== ENCOUNTER 2021-09-13 09:19 | Emergency (ER) | payer MEDICAID, SELFPAY ==
--- NOTE | 2021-09-13 09:20 | ED_ITS ---
HPI - Extremity Problem General: Chief complaint: Extremity Problem,Nontraumatic Stated complaint: L LEG PAIN/ BLOOD CLOT Time Seen by Provider: 09/13/21 09:20 Source: patient Mode of arrival: EMS Limitations: no limitations History of Present Illness: 46-year-old male presents emergency room with complaints of leg swelling. He was at the ER in [place] yesterday and was discharged home advised to get an ultrasound completed and [place] today. Patient states he could not get to a doctor's office so he called an ambulance and requested to come here. He denies any chest pain or shortness of breath he has no history of DVT. MD Complaint: extremity swelling Onset (ago): day(s) Pain Consistency: intermittent Location: left and lower extremity Quality: aching Radiation: none Relieving factors: nothing Exacerbating factors: nothing Associated symptoms: Deny arthralgias, chest pain, fever(s), myalgias, rash or short of breath Review of Systems Const: Denies: fever(s), chills or body aches ENMT: Denies: throat pain, ear or mastoid pain, nasal discharge or nasal congestion Card: Denies: chest pain, palpitations or irregular heart rhythm Resp: Denies: dyspnea, productive cough or non-productive cough GI: Denies: abdominal pain, nausea, vomiting, hematemesis, coffee ground emesis, diarrhea, constipation, bloating, hematochezia or melena : Denies: flank pain, difficulty urinating, dysuria, urinary frequency or urinary urgency Skin/Breast: Denies: rash PFSH ED PFSH: Medical History Anxiety Bipolar 2 disorder BPH (benign prostatic hyperplasia) Bronchitis COPD (chronic obstructive pulmonary disease) with chronic bronchitis Hypoxia, sleep related [place] use Lumbar disc disease with radiculopathy Prostatitis, acute Psychiatric care Sexual dysfunction Smoker Family History Other Cancer Psychiatric illness Social History Smoking and tobacco status: current every day smoker cigarettes Packs smoked per day: 0.5 and smokeless tobacco Smokeless tobacco user: snuff Alcohol intake: current Alcohol intake frequency: holidays/special occasions only Marital status: Number of children: 0 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 Current gender identity: Male Physical Exam Const: GENERAL APPEARANCE: cooperative and comfortable ORIENTATION/CONSCIOUSNESS: Yes awake, Yes oriented to person, Yes oriented to place and Yes oriented to time HENMT: COMMON NORMALS: normocephalic, atraumatic and hearing grossly normal bilaterally HEAD & SCALP: normocephalic and atraumatic Neck/C-Spine: COMMON NORMALS: no JVD Resp: COMMON NORMALS: normal respiratory effort, No retractions, No use of accessory muscles and clear to auscultation bilaterally AUSCULTATION: clear to auscultation bilaterally Cardio: COMMON NORMALS: no JVD, regular rate, regular rhythm and No murmurs present (Cardio) RATE: regular rate RHYTHM: regular rhythm GI: COMMON NORMALS: Soft to palpation and No hepatosplenomegaly present AUSCULTATION: Yes normoactive bowel sounds PALPATION: Yes Soft to palpation, No Tenderness to palpation present (GI), No Guarding due to palpation present (GI) and Yes No hepatosplenomegaly present Extremity: COMMON NORMALS: normal to inspection and capillary refill normal GENERAL: Yes edema (mild edema L lower leg) Neuro: SENSORIUM/ORIENTATION: Yes oriented to person, Yes oriented to place and Yes oriented to time Skin: COMMON NORMALS: no rashes or lesions noted GENERAL SKIN EXAM: no rashes or lesions noted Course Vital Signs: Vital signs: Vital Signs Pulse Rate 71 09/13/21 11:59 Respiratory Rate 17 09/13/21 11:59 Blood Pressure 116/70 09/13/21 09:27 Pulse Oximetry 100 09/13/21 11:59 MDM - Extremity (Nontraumatic) Medical Decision Making Venous duplex negative for DVT. Discharged home on Lasix 20 p.o. daily follow- up with his primary care return if has problems Medical Records I reviewed the patient's medical records. Lab Data I reviewed the patient's lab results. Discharge Plan Discharge Patient Disposition: Home Clinical Impression: Left leg swelling Condition: Stable Prescriptions: New Lasix 20 mg tablet 20 mg PO QAM Qty: 5 0RF No Action tadalafil [Cialis] 5 mg tablet 5 mg PO .QOD Qty: 30 3RF Rx Instructions: 1 tablet every other day as needed 340 B medication sulfamethoxazole-trimethoprim 800-160 mg tablet 1 tab PO BID Qty: 30 0RF albuterol sulfate 90 mcg/actuation HFA aerosol inhaler 2 puff inhalation Q6H PRN (Reason: shortness of breath or wheezing) Qty: 18 5RF Rx Instructions: 340 B meds methocarbamol 750 mg tablet 750 mg PO Q6H PRN (Reason: spasms) Qty: 20 0RF Naprosyn 500 mg tablet 500 mg PO BID PRN (Reason: pain) Qty: 20 0RF Discharge Orders: Discharge ED (Routine); Ordered 09/13/21 Ordered By: Tan Collier Referrals: David Ludwig MD [Primary Care Provider] - Patient Instructions: Opioid Safety Activity Restrictions/Additional Instructions: Follow up next week with your primary care doctor. Coding Level of Care Code ED Reconnaissance Man for Estevang Fwd Exam Comprehensive
[2021-09-13 09:27] VITALS: BP 116/70; PULSE 74; RESP 15; O2SAT 97
--- NOTE | 2021-09-13 09:30 | USCV_ITS ---
Jhonatan Lane Age: 46 Gender: M : 1975 Exam Date: 09/13/2021 09:49 Ordering Phys: Tan Collier DO Technologist: DEISY Exam Location: [facility] Indication: LLE PAIN AND SWELLING HISTORY: Lower extremity swelling. Lower extremity pain. PROCEDURES: Venous duplex imaging was performed in only the left lower extremity. The following venous structures were evaluated: common femoral vein, profunda vein, proximal portion of the greater saphenous vein, superficial femoral vein, and the popliteal vein. In addition, the posterior tibial and peroneal trunk were evaluated. Serial compression, augmentation maneuvers, and spectral Doppler flow evaluation were performed. FINDINGS: Normal 2-D Doppler and augmentation and compressibility throughout the lower extremity venous structures. Additional imaging through the proximal calf veins also reveals no thrombus. Limited evaluation of the greater saphenous vein is patent with no thrombus. CONCLUSIONS No DVT left lower extremity. Dr. Annie Guerrero DO (Electronically Signed) Final Date: 13 Sep 2021 14:35 S
[2021-09-13 11:59] VITALS: PULSE 71; RESP 17; O2SAT 100
== END 2021-09-13 12:01 | disposition home or self-care (01) ==
PROVIDERS: Emergency Provider Family Medicine; PCP Family Medicine Adult Medicine
DX: M79.89 Other specified soft tissue disorders (principal); M79.605 Pain in left leg; F17.210 Nicotine dependence, cigarettes, uncomplicated; F17.220 Nicotine dependence, chewing tobacco, uncomplicated
CPT/HCPCS: 93971; 99283

== ENCOUNTER 2021-09-29 23:45 | Emergency (ER) | payer MEDICAID, SELFPAY ==
[2021-09-29 23:52] VITALS: BMI 29.6
[2021-09-29 23:55] VITALS: BP 115/70; PULSE 87; RESP 16; TEMP 37; O2SAT 96
--- NOTE | 2021-09-30 00:12 | W.ED.ALLEREA ---
HPI - Allergic Reaction General: Chief complaint: Allergic Reaction Stated complaint: Allergic Reaction Time Seen by Provider: 09/30/21 00:11 History of Present Illness: HPI narrative: 46-year-old male patient comes in tonight with complaints of swelling of the lips and difficulty swallowing. Patient reports symptoms started about 1 to 2 hours ago. Patient states he started itching all over and had used some calamine lotion to help with the discomfort. Patient then noted that his lips started to swell and he had some itching in the back of his throat and occasional cough. Patient appears in mild distress. Patient does not know the causative agent. Patient does not take any routine medications and did not take any Benadryl or anything prior to arrival. Associated symptoms: Deny nausea or vomiting Review of Systems General: Reports: 10 or more systems reviewed and unremarkable except in HPI and below ENMT: Reports: throat pain (Itching) and other (Lip swelling) Card: Denies: chest pain Resp: Reports: non-productive cough GI: Denies: nausea or vomiting Skin/Breast: Reports: rash and pruritus PFSH ED PFSH: Medical History Anxiety Bipolar 2 disorder BPH (benign prostatic hyperplasia) Bronchitis COPD (chronic obstructive pulmonary disease) with chronic bronchitis Hypoxia, sleep related [place] use Lumbar disc disease with radiculopathy Prostatitis, acute Psychiatric care Sexual dysfunction Smoker Family History Other Cancer Psychiatric illness Social History Smoking and tobacco status: current every day smoker cigarettes Packs smoked per day: 0.5 and smokeless tobacco Smokeless tobacco user: snuff Alcohol intake: current Alcohol intake frequency: holidays/special occasions only Marital status: Number of children: 0 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 Current gender identity: Male Physical Exam Const: COMMON NORMALS: alert HENMT: HEAD & SCALP: normal to inspection MOUTH: tongue normal and lip abnormal (mild swelling) Neck/C-Spine: COMMON NORMALS: full ROM Resp: COMMON NORMALS: normal respiratory effort and clear to auscultation bilaterally AUSCULTATION: clear to auscultation bilaterally Cardio: COMMON NORMALS: regular rate and regular rhythm RATE: regular rate RHYTHM: regular rhythm GI: COMMON NORMALS: Soft to palpation PALPATION: Yes Soft to palpation Extremity: COMMON NORMALS: normal to inspection Neuro: SENSORIUM/ORIENTATION: Yes alert Skin: RASHES: rashes noted (Erythematous rash.) Course Vital Signs: Vital signs: Vital Signs Temperature 98.6 F 09/29/21 23:55 Pulse Rate 103 H 09/30/21 00:54 Respiratory Rate 16 09/30/21 00:54 Blood Pressure 128/67 09/30/21 00:54 Pulse Oximetry 94 09/30/21 00:54 MDM - Allergic Reaction Medical Decision Making Patient came in tonight for concerns of itching of the throat and swelling of the lips. On exam lungs were clear to auscultation vital signs were normal. Patient did have some noticeable swelling of the lips but no sign of swelling of the tongue or throat. Lungs remain clear to auscultation. Pulse oxygen was 96%. Differential diagnosis includes not limited to anaphylaxis, angioedema, allergic reaction. Patient was given 0.3 mg of epinephrine, diphenhydramine, and dexamethasone. Patient did have relief of symptoms. Recommended patient drink plenty of water continue with Benadryl as needed. Return to ER for new concerns. Patient reported understanding agreed to plan. Discharge Plan Discharge Patient Disposition: Home Clinical Impression: Allergic reaction Qualifiers: Encounter type: initial encounter Qualified Code(s): T78.40XA - Allergy, unspecified, initial encounter Angioedema Qualifiers: Encounter type: initial encounter Qualified Code(s): T78.3XXA - Angioneurotic edema, initial encounter Condition: Stable Prescriptions: No Action tadalafil [Cialis] 5 mg tablet 5 mg PO .QOD Qty: 30 3RF Rx Instructions: 1 tablet every other day as needed 340 B medication sulfamethoxazole-trimethoprim 800-160 mg tablet 1 tab PO BID Qty: 30 0RF albuterol sulfate 90 mcg/actuation HFA aerosol inhaler 2 puff inhalation Q6H PRN (Reason: shortness of breath or wheezing) Qty: 18 5RF Rx Instructions: 340 B meds Lasix 20 mg tablet 20 mg PO QAM Qty: 5 0RF methocarbamol 750 mg tablet 750 mg PO Q6H PRN (Reason: spasms) Qty: 20 0RF Naprosyn 500 mg tablet 500 mg PO BID PRN (Reason: pain) Qty: 20 0RF Discharge Orders: Discharge ED (Routine); Ordered 09/30/21 Ordered By: Junito Clinton Referrals: David Ludwig MD [Primary Care Provider] - Discharge Diet: Usual diet Discharge Activity: Increase activity as tolerated Patient Instructions: General Allergic Reaction (ED) Activity Restrictions/Additional Instructions: Avoid extreme temperatures such as hot showers or ice packs. Avoid spicy foods or really acidic foods. Drink plenty of water. Use Benadryl as needed for itching. Follow-up with primary care. Return to ER for new concerns. Coding Level of Care Code ED Coverage Specialist Rn for Estevang Fwd Exam Comprehensive
[2021-09-30] MEDS: diphenhydrAMINE 50 mg/mL SDV 1mL IM (00:27)
[2021-09-30] MEDS: EPINEPHrine 1 mg/mL INJ 0.3 MG IM (00:27)
[2021-09-30 00:54] VITALS: BP 128/67; PULSE 103; RESP 16; O2SAT 94
[2021-09-30] MEDS: dexamethasone 10 mg/mL INJ IM (01:48)
== END 2021-09-30 02:08 | disposition home or self-care (01) ==
PROVIDERS: Emergency Provider Nurse Practitioner Family; PCP Family Medicine Adult Medicine
DX: T78.40XA Allergy, unspecified, initial encounter (principal)
CPT/HCPCS: 96372; 99284; J0171; J1100; J1200

== ENCOUNTER 2021-11-25 18:20 | Emergency (ER) | payer BC, MEDICAID, SELFPAY ==
--- NOTE | 2021-11-25 18:31 | W.ED.SKABFB ---
HPI - Skin/Abscess/Foreign Bdy General: Chief complaint: Animal Bite Stated complaint: INFECTED AREA ON LEG Time Seen by Provider: 11/25/21 18:26 Source: patient and police Mode of arrival: other (police) Limitations: no limitations History of Present Illness: 46-year-old male who is here from [facility]. Patient states that he has had an abscess to his left upper leg over the last 3 to 4 days he states he has been taking doxycycline with no improvement has had some drainage he denies any fever he states he does have pain at the site he rates a 4 out of 10 denies any worsening proving factors Associated symptoms: Deny chills, fever(s), nausea or vomiting Review of Systems Const: Denies: fever(s), chills, body aches or change in appetite Eyes: Denies: blurry vision or eye discomfort ENMT: Denies: throat pain or dental pain Card: Denies: chest pain Resp: Denies: dyspnea GI: Denies: abdominal pain, nausea, vomiting or diarrhea : Denies: dysuria Musc: Denies: neck pain or back pain Skin/Breast: Reports: erythema Neuro: Denies: headache(s) Psych: Denies: depression Omar/Lymph: Denies: easy bruising All/Imm: Denies: urticaria PFSH ED PFSH: Medical History Anxiety Bipolar 2 disorder BPH (benign prostatic hyperplasia) Bronchitis COPD (chronic obstructive pulmonary disease) with chronic bronchitis Hypoxia, sleep related [place] use Lumbar disc disease with radiculopathy Prostatitis, acute Psychiatric care Sexual dysfunction Smoker Family History Other Cancer Psychiatric illness Social History Smoking and tobacco status: current every day smoker cigarettes Packs smoked per day: 0.5 and smokeless tobacco Smokeless tobacco user: snuff Alcohol intake: current Alcohol intake frequency: holidays/special occasions only Marital status: Number of children: 0 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 Current gender identity: Male Physical Exam Const: COMMON NORMALS: no acute distress, patient oriented x3 and healthy appearing HENMT: COMMON NORMALS: normocephalic and atraumatic HEAD & SCALP: normocephalic and atraumatic Eye: COMMON NORMALS: Equal, round and reactive pupils present and EOMs intact bilaterally PUPIL: Yes Equal, round and reactive pupils present Neck/C-Spine: COMMON NORMALS: full ROM and supple Chest: COMMONS NORMALS: normal inspection of the chest and normal palpation of entire chest wall Resp: COMMON NORMALS: normal respiratory effort, No retractions, No use of accessory muscles and clear to auscultation bilaterally AUSCULTATION: clear to auscultation bilaterally Cardio: COMMON NORMALS: regular rate, regular rhythm and No murmurs present (Cardio) RATE: regular rate RHYTHM: regular rhythm GI: COMMON NORMALS: Normal to inspection, nondistended, normoactive bowel sounds present, Soft to palpation, non-tender and no masses PALPATION: Yes Soft to palpation Extremity: COMMON NORMALS: full ROM NARRATIVE EXTREMITY EXAM: Abscess to left upper leg roughly 2 to 3 cm with mild erythema Neuro: COMMON NORMALS: patient oriented x3, moves all extremities and no focal motor deficits Psych: COMMON NORMALS: mental status grossly normal, Normal thought process present and cooperative THOUGHT PROCESS: Normal thought process present Skin: COMMON NORMALS: no jaundice Procedures Abscess I/D Site: lower extremity Side (if applicable): left Local Anesthetic: lidocaine 1% Amount of anesthesia used (mL): 5 Technique: incised with #11 blade Irrigation: No Packing used?: none Course Vital Signs: Vital signs: Vital Signs Temperature 98.2 F 11/25/21 18:32 Pulse Rate 91 11/25/21 18:32 Respiratory Rate 14 11/25/21 18:32 Pulse Oximetry 97 11/25/21 18:32 Oxygen Delivery Me thod 11/25/21 18:32 MDM - Skin/Abscess/Foreign Bdy Medicial Decision Making Patient presents here with abscess to left thigh it was incised and drained we will have him stop the doxycycline and start Bactrim he stable for discharge is to follow-up PCP and return if worsening. Discharge Plan Discharge Patient Disposition: Home Clinical Impression: Abscess Condition: Stable Prescriptions: New Bactrim DS 800-160 mg tablet 1 tab PO BID 10 Days Qty: 20 0RF No Action tadalafil [Cialis] 5 mg tablet 5 mg PO .QOD Qty: 30 3RF Rx Instructions: 1 tablet every other day as needed 340 B medication sulfamethoxazole-trimethoprim 800-160 mg tablet 1 tab PO BID Qty: 30 0RF albuterol sulfate 90 mcg/actuation HFA aerosol inhaler 2 puff inhalation Q6H PRN (Reason: shortness of breath or wheezing) Qty: 18 5RF Rx Instructions: 340 B meds Lasix 20 mg tablet 20 mg PO QAM Qty: 5 0RF methocarbamol 750 mg tablet 750 mg PO Q6H PRN (Reason: spasms) Qty: 20 0RF Naprosyn 500 mg tablet 500 mg PO BID PRN (Reason: pain) Qty: 20 0RF Discharge Orders: Discharge ED (Routine); Ordered 11/25/21 Ordered By: Salvador Sofia Referrals: David Ludwig MD [Primary Care Provider] - 1-3 days Discharge Diet: Advance as tolerated Discharge Activity: Resume usual activity Patient Instructions: Abscess (ED) Coding Level of Care Code ED Ecommerce Merchandising Manager for Ghanshyam Nathan
[2021-11-25 18:32] VITALS: PULSE 91; RESP 14; TEMP 36.8; O2SAT 97; BMI 26.6
[2021-11-25] MEDS: sulfamethoxazole-trimeth DS 160-800 mg Tablet 1 TAB PO ×2 (19:05→19:06)
== END 2021-11-25 19:09 | disposition home or self-care (01) ==
PROVIDERS: Emergency Provider Emergency Medicine; PCP Family Medicine Adult Medicine
DX: L02.416 Cutaneous abscess of left lower limb (principal); J44.9 Chronic obstructive pulmonary disease, unspecified; F17.210 Nicotine dependence, cigarettes, uncomplicated
CPT/HCPCS: 10060; 99283

== ENCOUNTER 2022-02-22 10:39 | Emergency (ER) | payer BC, MEDICAID, SELFPAY ==
[2022-02-22 10:53] VITALS: BMI 26.6
[2022-02-22 12:00] VITALS: PULSE 86; RESP 18; O2SAT 98
--- NOTE | 2022-02-22 12:15 | W.ED.ALLEREA ---
HPI - Allergic Reaction General: Chief complaint: Allergic Reaction Stated complaint: Covered in poison cat Time Seen by Provider: 02/22/22 11:56 History of Present Illness: HPI narrative: 46-year-old male presents with diffuse dermatitis from poison cat. He reports is been going on for about a month. Patient reports he just continues to have problems with it and comes in to get treated. Patient has tried some cream. There does appear to be some that are infected from where it has been in itching them. Patient had no other complaints.. Review of Systems General: Reports: 10 or more systems reviewed and unremarkable except in HPI and below Skin/Breast: Reports: rash, pruritus and erythema PFSH ED PFSH: Medical History Anxiety Bipolar 2 disorder BPH (benign prostatic hyperplasia) Bronchitis COPD (chronic obstructive pulmonary disease) with chronic bronchitis Hypoxia, sleep related [place] use Lumbar disc disease with radiculopathy Prostatitis, acute Psychiatric care Sexual dysfunction Smoker Family History Other Cancer Psychiatric illness Social History Smoking and tobacco status: current every day smoker cigarettes Packs smoked per day: 0.5 and smokeless tobacco Smokeless tobacco user: snuff Alcohol intake: current Alcohol intake frequency: holidays/special occasions only Marital status: Number of children: 0 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 MDM - Allergic Reaction Medical Decision Making Patient with contact dermatitis with some overlying infection. Patient to be treated with steroid and antibiotic. Patient stable discharged home Discharge Plan Discharge Patient Disposition: Home Clinical Impression: Poison cat dermatitis Condition: Stable Prescriptions: New prednisone 20 mg tablet 20 mg PO BID 7 Days Qty: 14 0RF cephalexin 500 mg capsule 500 mg PO Q12H 7 Days Qty: 14 0RF No Action tadalafil [Cialis] 5 mg tablet 5 mg PO .QOD Qty: 30 3RF Rx Instructions: 1 tablet every other day as needed 340 B medication sulfamethoxazole-trimethoprim 800-160 mg tablet 1 tab PO BID Qty: 30 0RF albuterol sulfate 90 mcg/actuation HFA aerosol inhaler 2 puff inhalation Q6H PRN (Reason: shortness of breath or wheezing) Qty: 18 5RF Rx Instructions: 340 B meds Lasix 20 mg tablet 20 mg PO QAM Qty: 5 0RF methocarbamol 750 mg tablet 750 mg PO Q6H PRN (Reason: spasms) Qty: 20 0RF Naprosyn 500 mg tablet 500 mg PO BID PRN (Reason: pain) Qty: 20 0RF Discharge Orders: Discharge ED (Routine); Ordered 02/22/22 Ordered By: Leobardo Weir Referrals: David Ludwig MD [Primary Care Provider] - Discharge Diet: Advance as tolerated Discharge Activity: Resume usual activity Patient Instructions: Contact Dermatitis (ED), Poison Cat (ED), Opioid Safety, Pain Management Coding Level of Care Code ED Board Machine Set Up Operator for Ghanshyam Nathan
== END 2022-02-22 12:48 | disposition home or self-care (01) ==
PROVIDERS: Emergency Provider Student in an Organized Health Care Education/Training Program; PCP Family Medicine Adult Medicine
DX: L25.5 Unspecified contact dermatitis due to plants, except food (principal); J44.9 Chronic obstructive pulmonary disease, unspecified; F17.210 Nicotine dependence, cigarettes, uncomplicated
CPT/HCPCS: 99283

== ENCOUNTER 2024-12-28 20:37 | Inpatient (IN) | payer SELFPAY ==
--- OUTSIDE RECORDS SUMMARY | 2024-12-28 20:42 | XMS_ITS | Clinical Summary ---
Author Organization [facility] Address [address] [place] [address] Phone Care Team Providers Care Support Services Manager Name Role Phone Unavailable Primary Care Provider Unavailabl e Allergies Active Allergy Reactions Criticality Noted Date Comments Diazepam Other (See Comments) 09/12/2021 unconsciousness Penicillins Unknown 09/12/2021 Medications No known medications Social History Tobacco Use Types Packs/Day Years Used Date Smoking Tobacco: Every Day Cigarettes Smokeless Tobacco: Never Alcohol Use Standard Drinks/Week Comments Not Currently 0 (1 standard drink = 0.6 oz pur e alcohol) Sex and Gender Information Value Date Recorded Sex Assigned at Not on file Legal 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 Gender Identity Not on file Sexual Orientation Not on file Last Filed Vital Signs Vital Sign Reading Time Taken Comments Blood Pressure 122/72 09/12/2021 8:30 PM CDT Pulse 81 09/12/2021 8:30 PM CDT Temperature 36.6 C (97.9 F) 09/12/2021 6:45 PM CDT Respiratory Rate 16 09/12/2021 8:30 PM CDT Oxygen Saturation 97% 09/12/2021 8:30 PM CDT Inhaled Oxygen Concentration - - Weight 84.9 kg (187 lb 1.6 oz) 09/12/2021 6:45 P M CDT Height 174 cm (5' 8.5 ) 09/12/2021 6:45 PM CDT Body Mass Index 28.03 09/12/2021 6:45 PM CDT Plan of Treatment Health Maintenance Due Date Last Done Comments DTAP/TDAP/TD VACCINES (1 - Tdap) 1994 HEPATITIS B VACCINES (1 of 3 - 19+ 3-dose series) 02/25 COLORECTAL SCREENING 2020 Colorectal Cancer Screening 2020 FIT-DNA Q 3 years 2020 FIT/FOBT Q 1 year 2020 Flex Sig/CT Colonography Q 5 years 2020 INFLUENZA VACCINE (#1) 2024 Insurance MEDICAID [place]
--- NOTE | 2024-12-28 20:45 | ED.C_ITS ---
HPI - Psych General: Chief Complaint: Psychiatric Symptoms Stated Complaint: MHE Time Seen by Provider: 12/28/24 20:38 History of Present Illness: 49-year-old resents to the emergency benjy koenig complaining of suicidal ideation. Patient was recently released from [facility] after several years she has had a hard time reintegrating cannot find anyone he knows the only family member he has been able to make contact with his and is just in dire straits as he is. He has been out for about 4 days he has been living in the [facility] he somehow managed to get himself from [place] to [place] where he has been in the past. He has a history of bipolar and schizophrenia. He was planning on harming himself by either cutting his wrists or jumping off of a bridge. He had a pocket knife and gave that away to someone to avoid harming himself. He has tried to reach out to get resources within the community but has not been able to do so. Related Data Previous Rx's ?Medication ?Instructions ?Recorded albuterol sulfate 90 mcg/actuation 2 puff inhalation Q 6H PRN 10/09/20 aerosol inhaler shortness of breath or wheez ing #18 grams sulfamethoxazole 800 1 tab PO BID prostate infect ion 07/05/21 mg-trimethoprim 160 mg tablet #30 tabs tadalafil 5 mg tablet (Cialis) 5 mg PO .QOD Sexual dys function 07/05/21 #30 tabs methocarbamol 750 mg tablet 750 mg PO Q6H PRN spasms # 20 tabs 07/29/21 naproxen 500 mg tablet (Naprosyn) 500 mg PO BID PRN pa in #20 tabs 07/29/21 furosemide 20 mg tablet (Lasix) 20 mg PO QAM #5 tabs 0 09/13/21 Allergies Allergy/AdvReac Type Severity Reaction Status Date / Time cashew nut Allergy Severe ALGY-Anaphy Verified 07/05/21 08:10 laxis diazepam (From Valium) Allergy Severe he was in Verified 07/05/21 08:10 a coma Review of Systems Const: Denies: fever(s) or chills Card: Denies: chest pain Resp: Denies: dyspnea GI: Denies: abdominal pain : Denies: dysuria, urinary frequency or urinary urgency Musc: Denies: neck pain or back pain Skin/Breast: Denies: rash PFSH ED PFSH: Medical History Prostatitis, acute Sexual dysfunction BPH (benign prostatic hyperplasia) Smoker Lumbar disc disease with radiculopathy COPD (chronic obstructive pulmonary disease) with chronic bronchitis Hypoxia, sleep related Bronchitis [place] use Bipolar 2 disorder Anxiety Family History Other Cancer Psychiatric illness Social History Smoking and tobacco/nicotine status: current every day tobacco/nicotine user cigarettes Packs smoked per day: 0.5 and smokeless tobacco Smokeless tobacco user: snuff Alcohol intake: current Alcohol intake frequency: holidays/special occasions only Substance/Drug Use: former Marital status: Number of children: 0 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 Current gender identity: Male Physical Exam Const: COMMON NORMALS: no acute distress GENERAL APPEARANCE: cooperative and comfortable ORIENTATION/CONSCIOUSNESS: Yes awake, Yes oriented to person, Yes oriented to place and Yes oriented to time HENMT: COMMON NORMALS: normocephalic, atraumatic and hearing grossly normal bilaterally HEAD & SCALP: normocephalic and atraumatic Resp: COMMON NORMALS: normal respiratory effort, No retractions, No use of accessory muscles and clear to auscultation bilaterally AUSCULTATION: clear to auscultation bilaterally Cardio: COMMON NORMALS: regular rate, regular rhythm and No murmurs present (Cardio) RATE: regular rate RHYTHM: regular rhythm GI: COMMON NORMALS: Soft to palpation and No hepatosplenomegaly present AUSCULTATION: Yes normoactive bowel sounds PALPATION: Yes Soft to palpation, No Tenderness to palpation present (GI), No Guarding due to palpation present (GI) and Yes No hepatosplenomegaly present Extremity: COMMON NORMALS: normal to inspection, capillary refill normal, no clubbing, cyanosis or edema, no calf tenderness and no pedal edema Neuro: SENSORIUM/ORIENTATION: Yes oriented to person, Yes oriented to place and Yes oriented to time Skin: COMMON NORMALS: no rashes or lesions noted GENERAL SKIN EXAM: no rashes or lesions noted Course Vital Signs: Vital signs: Vital Signs Temperature 98.8 F 12/28/24 20:46 Pulse Rate 104 H 12/28/24 20:46 Respiratory Rate 16 12/28/24 20:46 Blood Pressure 117/68 12/28/24 20:46 Pulse Oximetry 95 12/28/24 20:46 Oxygen Delivery Me thod Room Air 12/28/24 20:46 MDM - Psych Medical Decision Making Will admit on a 96-hour hold for suicidal ideation discussed with Dr. Patel is on-call for psychiatry he agrees. 96-hour hold paperwork completed did not orders written for admission. I do believe patient is frustrated up at this point he is at risk to harming himself. No radiology studies performed this visit Discharge Plan Discharge Patient Disposition: Admitted As Inpatient Clinical Impression: Suicidal ideation, Depression, Bipolar 2 disorder Condition: Stable Coding Level of Care Code ED Kettle Fry Cook Operator for Ghanshyam Nathan
[2024-12-28 20:46] VITALS: BP 117/68; PULSE 104; RESP 16; TEMP 37.1; O2SAT 95; BMI 27.2
[2024-12-28 21:24] LABS: Hematocrit 40.9 % (37-53); Hemoglobin 14.00 g/dL (11.27-16.99); Mean Corpuscular HGB Conc 34.2 g/dL (30-55); Mean Corpuscular Hemoglobin 30.3 pg (27-33); Mean Corpuscular Volume 88.5 fl (82-101); Nucleated Red Blood Cells % 0 %; Platelet Count 185 10^3/cmm (157-399); Red Blood Count 4.62 10^6/uL (3.85-5.65); White Blood Count 15.76 10^3/uL (3.29-11.43)
--- NOTE | 2024-12-28 21:36 | PC.NURSE ---
96 Hour Involuntary Hold Patient Rights have been reviewed with patient and a copy of the same has been provided to him. Operational Meteorologist Werner Phillips was present at bedside during presentation of Rights.
[2024-12-28 21:38] LABS: Acetaminophen < 5.0 ug/mL (10-30); Alanine Aminotransferase 22 U/L (0-41); Albumin Level 4.3 g/dL (3.5-5.2); Alcohol Level < 10 mg/dL (0-10); Alkaline Phosphatase 85 U/L (40-130); Anion Gap 19.0 (5-19); Aspartate Amino Transferase 43 U/L (0-40); Blood Urea Nitrogen 24 mg/dL (6-20); Calcium 9.2 mg/dL (8.5-10.5); Carbon Dioxide 23 mmol/L (22-29); Chloride 100 mmol/L (98-107); Creatinine Clr Calc Pharmacy 92.9176; Globulin 3.2 g/dL (1.3-4.6); Glucose 92 mg/dL (65-115); Osmolality Calculated 290 mOsm/kg (285-295); Potassium 4.0 mmol/L (3.5-5.1); Salicylate < 0.3 mg/dL (3-10); Sodium 138 mmol/L (136-145); Total Protein 7.5 g/dL (6.6-8.7)
[2024-12-28 22:20] LABS: PCP Screen Urine Negative (Negative)
[2024-12-29 00:20] VITALS: BP 122/71; PULSE 87; RESP 18; TEMP 36.7; O2SAT 98
[2024-12-29 02:00] LABS: Glucose Urine UA Negative (Normal); Nitrate Urine Negative (Negative)
[2024-12-29 02:31] LABS: Specific Gravity, Urine 1.031 (1.005-1.030); UA Slide Review UA Slide Review Perf
[2024-12-29 06:00] VITALS: BP 104/62; PULSE 80; RESP 16; TEMP 36.9; O2SAT 96
[2024-12-29 14:00] VITALS: BP 123/74; PULSE 87; RESP 20; TEMP 37.3; O2SAT 97
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
[2024-12-29 21:56] VITALS: BP 119/68; PULSE 74; RESP 18; TEMP 36.9; O2SAT 98
[2024-12-30 06:00] VITALS: BP 114/72; PULSE 66; RESP 18; TEMP 36.9; O2SAT 95
[2024-12-30 14:00] VITALS: BP 144/68; PULSE 87; RESP 17; TEMP 36.6; O2SAT 100
[2024-12-30 15:30] VITALS: BP 144/68; PULSE 87; RESP 18; O2SAT 100
--- NOTE | 2024-12-30 16:10 | PC.NURSE ---
Reveiwed patient discharge with patient. All questions answered and patients belongings and home medications returned.
== END 2024-12-30 15:31 | disposition home or self-care (01) | DRG 885 ==
LOC: ER 21:19 → NP 22:25
PROVIDERS: Admitting Provider Psychiatry & Neurology Psychiatry; Emergency Provider Family Medicine; Visit Provider Psychiatry & Neurology Psychiatry
DX: F31.9 Bipolar disorder, unspecified (principal); F29 Unspecified psychosis not due to a substance or known physiological condition; F17.210 Nicotine dependence, cigarettes, uncomplicated; J44.9 Chronic obstructive pulmonary disease, unspecified
CPT/HCPCS: 36415; 80053; 80306; 80307; 81001; 85025; 97150; 97165; 99285; J3535; J9999

== ENCOUNTER 2025-01-23 21:37 | Inpatient (IN) | payer MEDICAID, SELFPAY ==
[2025-01-23 21:39] VITALS: BP 126/74; PULSE 94; RESP 14; TEMP 36.7; O2SAT 95; BMI 27.0
--- OUTSIDE RECORDS SUMMARY | 2025-01-23 21:42 | XMS_ITS | Clinical Summary ---
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
[2025-01-23 22:13] LABS: Add Urine Microscopic? NO
[2025-01-23 22:17] LABS: Glucose Urine UA Negative (Normal); Nitrate Urine Negative (Negative); Specific Gravity, Urine 1.016 (1.005-1.030)
[2025-01-23 22:21] LABS: Charge for UA Resulting for Rev
[2025-01-23 22:25] LABS: PCP Screen Urine Negative (Negative)
[2025-01-23 22:56] LABS: Hematocrit 42.2 % (37-53); Hemoglobin 13.80 g/dL (11.27-16.99); Mean Corpuscular HGB Conc 32.7 g/dL (30-55); Mean Corpuscular Hemoglobin 30.3 pg (27-33); Mean Corpuscular Volume 92.5 fl (82-101); Nucleated Red Blood Cells % 0 %; Platelet Count 227 10^3/cmm (157-399); Red Blood Count 4.56 10^6/uL (3.85-5.65); White Blood Count 8.81 10^3/uL (3.29-11.43)
[2025-01-23 23:31] LABS: Alanine Aminotransferase 25 U/L (0-41); Albumin Level 4.2 g/dL (3.5-5.2); Alcohol Level 91 mg/dL (0-10); Alkaline Phosphatase 86 U/L (40-130); Anion Gap 17.1 (5-19); Aspartate Amino Transferase 20 U/L (0-40); Blood Urea Nitrogen 11 mg/dL (6-20); Calcium 8.7 mg/dL (8.5-10.5); Carbon Dioxide 24 mmol/L (22-29); Chloride 109 mmol/L (98-107); Creatinine Clr Calc Pharmacy 115.8601; Globulin 3.3 g/dL (1.3-4.6); Glucose 97 mg/dL (65-115); Osmolality Calculated 301 mOsm/kg (285-295); Potassium 4.1 mmol/L (3.5-5.1); Sodium 146 mmol/L (136-145); Total Protein 7.5 g/dL (6.6-8.7)
[2025-01-23 23:33] LABS: Acetaminophen < 5.0 ug/mL (10-30); Salicylate < 0.3 mg/dL (3-10)
--- NOTE | 2025-01-23 23:45 | ED.C_ITS ---
HPI - Psych 2 General: Chief Complaint: Psychiatric Symptoms Stated Complaint: MHE Time Seen by Provider: 01/23/25 21:37 Source: patient Mode of arrival: ambulatory Limitations: no limitations History of Present Illness: Patient is a 49-year-old male who presents the emergency department complaining of suicidal ideation and homicidal ideation. This patient was seen in the neuropsychiatric unit at beginning of the month for similar issues, discharged on Invega and trazodone. Patient states he was doing well after discharge but for the past a week and a half he has not taken his medications secondary to misplacing them. He notes that because of this he has had recurrence of suicidal ideation with plan to lay in front of train tracks. States that also he has been having increased aggression and has even made homicidal threats towards a friend stating that he was going to slit the throat. At this time he is calm and cooperative, states he thinks he is to come back into the emergency department to discuss adjusting medications as well along with refilling, denies any drug or alcohol use. Denies any hallucinations. MD complaint: suicidal ideation and other (homicidal ideation) Onset (ago): day(s) Duration: getting worse History of same: Yes Context: not taking psychiatric medications Associated symptoms: Reports depression, homicidal ideation and suicidal ideation; Deny auditory hallucinations or visual hallucinations If self harm: admits thoughts of self harm and has plan Related Data Home Medications ?Medication ?Instructions ?Recorded ?Confirmed Lubricant Eye Drops 1.4 % eye-both QID PRN Dry E ye(S) 12/29/24 12/29/24 hydrocortisone 1 % topical QID PRN Itching 12/29/24 12/29/24 ibuprofen 800 mg PO BID PRN Pain 12/2912/29/24 Previous Rx's ?Medication ?Instructions ?Recorded albuterol sulfate 90 mcg/actuation 2 puff inhalation Q 6H PRN 10/09/20 aerosol inhaler shortness of breath or wheez ing #18 grams hydroxyzine pamoate 25 mg capsule 50 mg (2 x 25 mg) PO Q6H PRN 12/30/24 Anxiety 30 days #120 caps paliperidone 3 mg tablet,extended 3 mg PO 2100 30 days #30 tabs 12/30/24 release 24 hr trazodone 50 mg tablet 50 mg PO BEDTIME PRN Sleep 3 0 days 12/30/24 #30 tabs Allergies Allergy/AdvReac Type Severity Reaction Status Date / Time cashew nut Allergy Severe ALGY-Anaphy Verified 01/23/25 21:43 laxis diazepam (From Valium) Allergy Severe he was in Verified 01/23/25 21:43 a coma Review of Systems 2 General: Reports: 10 or more systems reviewed and unremarkable except in HPI and below Const: Denies: fever(s), chills or fatigue Eyes: Denies: change in vision ENMT: Denies: throat pain, ear or mastoid pain or nasal discharge Card: Denies: chest pain, palpitations, swelling of feet/ankles or lightheadedness Resp: Denies: dyspnea, productive cough or wheezing GI: Denies: abdominal pain, nausea, vomiting, diarrhea or constipation : Denies: flank pain, difficulty urinating, dysuria or urinary frequency Musc: Denies: neck pain, back pain or joint pain Skin/Breast: Denies: rash Neuro: Denies: headache(s), numbness in extremities or weakness in extremities Psych: Reports: anxiety, depression, irritability, suicidal ideation and homicidal ideation; Denies: difficulty concentrating, visual hallucinations or auditory hallucinations PFSH ED 2 PFSH: Medical History Psychiatric care Prostatitis, acute Sexual dysfunction BPH (benign prostatic hyperplasia) Smoker Lumbar disc disease with radiculopathy COPD (chronic obstructive pulmonary disease) with chronic bronchitis Hypoxia, sleep related Bronchitis [place] use Bipolar 2 disorder Anxiety Family History Other Cancer Psychiatric illness Social History Smoking and tobacco/nicotine status: heavy tobacco/nicotine user cigarettes Packs smoked per day: 0.5 and smokeless tobacco Smokeless tobacco user: snuff Alcohol intake: current Alcohol intake frequency: holidays/special occasions only Substance/Drug Use: former Marital status: Number of children: 0 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 Current gender identity: Male Physical Exam 2 Const: COMMON NORMALS: no acute distress and no limitations GENERAL APPEARANCE: cooperative, comfortable and well developed O RIENTATION/CONSCIOUSNESS: Yes awake HENMT: COMMON NORMALS: normocephalic, atraumatic and hearing grossly normal bilaterally HEAD & SCALP: normocephalic and atraumatic Eye: COMMON NORMALS: Equal, round and reactive pupils present, EOMs intact bilaterally and conjunctivae normal CONJUNCTIVA: Yes conjunctivae normal P UPIL: Yes Equal, round and reactive pupils present Neck/C-Spine: COMMON NORMALS: full ROM, supple and no JVD Resp: COMMON NORMALS: normal respiratory effort, No retractions, No use of accessory muscles and clear to auscultation bilaterally AUSCULTATION: clear to auscultation bilaterally Cardio: COMMON NORMALS: no JVD, regular rate, regular rhythm, No clicks present (Cardio), No murmurs present (Cardio) and No rub (Cardio) RATE: r egular rate RHYTHM: regular rhythm Extremity: COMMON NORMALS: normal to inspection, full ROM and capillary refill normal Psych: COMMON NORMALS: mental status grossly normal, Normal thought process present and speech normal APPEARANCE: Yes grossly normal ATTITUDE: Yes calm ACTIVITY/MOTOR BEHAVIOR: Yes appropriate eye contact SPEECH: Yes normal speech MOOD & AFFECT: Yes Flat affect present THOUGHT PROCESS: N ormal thought process present THOUGHT CONTENT: Yes Suicidality present, Yes Homicidality present and No Hallucination(s) present Skin: COMMON NORMALS: no rashes or lesions noted GENERAL SKIN EXAM: no rashes or lesions noted Course 2 Vital Signs: Vital signs: Vital Signs Temperature 98.1 F 01/23/25 21:39 Pulse Rate 94 01/23/25 21:39 Respiratory Rate 14 01/23/25 21:39 Blood Pressure 126/74 01/23/25 21:39 Pulse Oximetry 95 01/23/25 21:39 MDM - Psych Medical Decision Making This patient presented for suicidal ideation or homicidal ideation, history of similar was in the neuropsychiatric unit begin the month but discharged on medications that patient has since stopped taking because he misplaced them. Placed on 96-hour hold at this time, spoke to Dr. Bragg who agrees to accept patient to neuropsychiatric unit for further evaluation. Cleared medically. Lab Data 01/23/25 22:45 01/23/25 22:45 Laboratory Results WBC 8.81 10^3/uL (3.29-11.43) 01/23/25 22:45 RBC 4.56 10^6/uL (3.85-5.65) 01/23/25 22:45 Hgb 13.80 g/dL (11.27-16.99) 01/23/25 22:45 Hct 42.2 % (37-53) 01/23/25 22:45 MCV 92.5 fl (82-101) 01/23/25 22:45 MCH 30.3 pg (27-33) 01/23/25 22:45 MCHC 32.7 g/dL (30-55) 01/23/25 22:45 RDW 13.6 % (12.1-15.1) 01/23/25 22:45 Plt Count 227 10^3/cmm (157-399) 01/23/25 22:45 MPV 9.8 fL (7.4-10.4) 01/23/25 22:45 Neut % (Auto) 59.7 % 01/23/25 22:45 Lymph % (Auto) 26.4 % 01/23/25 22:45 [place] % (Auto) 7.7 % 01/23/25 22:45 Eos % (Auto) 5.1 % 01/23/25 22:45 Baso % (Auto) 0.6 % 01/23/25 22:45 Neut # (Auto) 5.26 10^3/uL (1.8-7.7) 01/23/25 22:45 Lymph # (Auto) 2.3 10^3/uL (0.8-4.8) 01/23/25 22:45 [place] # (Auto) 0.7 10^3/uL (0.2-0.9) 01/23/25 22:45 Eos # (Auto) 0.5 10^3/uL (0.0-0.8) 01/23/25 22:45 Baso # (Auto) 0.1 10^3/uL (0.0-0.1) 01/23/25 22:45 Nucleated RBC % (auto) 0 % 01/23/25:45 Nucleated RBCs # 0.0 /100WBC 01/23/25 22:45 Sodium 146 mmol/L (136-145) H 01/23/25 22:45 Potassium 4.1 mmol/L (3.5-5.1) 01/23/25 22:45 Chloride 109 mmol/L (98-107) H 01/23/25 22:45 Carbon Dioxide 24 mmol/L (22-29) 01/23/25 22:45 Anion Gap 17.1 (5-19) 01/23/25 22:45 BUN 11 mg/dL (6-20) 01/23/25 22:45 Creatinine 0.8 mg/dL (0.7-1.2) 01/23/25 22:45 GFR Calculation 102.7 mL/min (90-130) 01/23/25 22:45 Glucose 97 mg/dL (65-115) 01/23/25 22:45 Calculated Osmolality 301 mOsm/kg (285-295) H 01/23/25 22:45 Calcium 8.7 mg/dL (8.5-10.5) 01/23/25 22:45 Total Bilirubin 0.2 mg/dL (0.15-1.2) 01/23/25 22:45 AST 20 U/L (0-40) 01/23/25 22:45 ALT 25 U/L (0-41) 01/23/25 22:45 Alkaline Phosphatase 86 U/L (40-130) 01/23/25 22:45 Total Protein 7.5 g/dL (6.6-8.7) 01/23/25 22:45 Albumin 4.2 g/dL (3.5-5.2) 01/23/25 22:45 Globulin 3.3 g/dL (1.3-4.6) 01/23/25 22:45 Urine Color Yellow (Yellow) 01/23/25 21:51 Urine Appearance Clear (CLEAR) 01/23/25 21:51 Urine pH 5.0 (5-7) 01/23/25 21:51 Ur Specific [place] 1.016 (1.005-1.030) 01/23/25 21:51 Urine Protein Negative (Negative) 01/23/25 21:51 Urine Glucose (UA) Negative (Normal) 01/23/25 21:51 Urine Ketones Negative (Negative) 01/23/25 21:51 Urine Blood Negative (Negative) 01/23/25 21:51 Urine Nitrate Negative (Negative) 01/23/25 21:51 Urine Bilirubin Negative (Negative) 01/23/25 21:51 Urine Urobilinogen 0.2 mg/dL (Negative) 01/23/25 21:51 Ur Leukocyte Esterase Negative (Negative) 01/23/25 21:51 Amorphous Sediment Not Reportable 01/23/25 21:51 Salicylates < 0.3 mg/dL (3-10) L 01/23/25 22:45 Urine Opiates Screen Negative ng/mL (Negative) 01/23/25 21:51 Acetaminophen < 5.0 ug/mL (10-30) L 01/23/25 22:45 Ur Barbiturates Screen Negative ng/mL (Negative) 01/23/25 21:51 Ur Phencyclidine Scrn Negative ng/mL (Negative) 01/23/25 21:51 Ur Amphetamines Screen Negative ng/mL (Negative) 01/23/25 21:51 U Benzodiazepines Scrn Negative ng/mL (Negative) 01/23/25 21:51 Urine Cocaine Screen Negative ng/mL (Negative) 01/23/25 21:51 U Marijuana (THC) Screen Negative ng/mL (Negative) 01/23/25 21:51 Ethyl Alcohol 91 mg/dL (0-10) H 01/23/25 22:45 No radiology studies performed this visit Discharge Plan Discharge Patient Disposition: Admitted As Inpatient Admit Provider: Ab Pantoja Clinical Impression: Suicidal ideation, Homicidal ideation Condition: Stable Coding Level of Care Code ED Upsetter Setter Up for Ghanshyam Nathan
--- NOTE | 2025-01-24 00:08 | PC.NURSE ---
96 HH Pt served with copy of 96 by this RN and security. Pt states I'm really tired . Pt also stated that he was familiar with 96 .
[2025-01-24 00:34] VITALS: BP 134/78; PULSE 76; RESP 17; TEMP 36.8; O2SAT 99
--- NOTE | 2025-01-24 04:52 | PC.NURSE ---
Had multiple tattoos on arms and chest, no skin variations. Pt had a quarter sized blister on his righ foot on the ball toward the toes
--- NOTE | 2025-01-24 04:54 | PC.ADMIT ---
215 1\2 [facility] Admission Note: The patient,Lane Keene,49 y/o, was given written information regarding hospital policies, unit procedures and contact persons. Patient's smoking status: heavy tobacco smoker. Vital Signs - 8 hr 01/23/25 21:39 01/24/25 00:34 Temperature 98.1 F 98.2 F Pulse Rate 94 76 Respiratory Rate 14 17 Blood Pressure 126/74 134/78 Pulse Oximetry 95 99 Oxygen Delivery Method Room Air
[2025-01-24 06:00] VITALS: BP 110/68; PULSE 66; RESP 18; TEMP 36.9; O2SAT 97
[2025-01-24 13:53] VITALS: BP 120/75; PULSE 72; RESP 18; TEMP 36.6; O2SAT 98
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
[2025-01-24] MEDS: paliperidone ER 6 mg Tablet PO (19:44)
[2025-01-24 22:00] VITALS: BP 153/84; PULSE 81; RESP 18; TEMP 36.4; O2SAT 96
[2025-01-25 06:00] VITALS: BP 118/72; PULSE 67; RESP 18; TEMP 36.5; O2SAT 97
--- NOTE | 2025-01-25 11:27 | NUR.SHIFT ---
Pt states that he slept good last night. Denies anxiety or depression. No reports of SI/HI or hallucinations. He is calm and sitting in dayroom talking with peers.
[2025-01-25 13:42] VITALS: BP 106/66; PULSE 91; RESP 18; TEMP 36.6; O2SAT 95
--- NOTE | 2025-01-25 15:13 | P.NPUPN_ITS ---
Subjective NPU 2 Subjective: 49-year-old male with a history of polys ubstance abuse, PTSD, and impulse control disorder and questionable psychotic disorder was admitted with suicidal ideation. He had expressed having homelessness. He had reported that he was feeling good on his current medications. He had denied any hallucinations. He had stated that he was hopeful about going to live in a long term in [place]. He had reported no side effects from his Invega. He was compliant on the milieu and reported no feelings of hopelessness or worthlessness. Mental Status Exam 2 MSE Comments: Patient is a well-built male who appeared his stated age with ordinate tattoos throughout his body. He was pleasant and cooperative on interview. He appeared in no acute distress. His gait appeared within normal limits. His hygiene was fair. There is no evidence of any abnormal involuntary motor movements, tics, or tremors appreciated. His speech was normal in rate with normal volume appreciated. His mood was described as okay. His affect was euthymic. His thought process was linear, logical, and goal-directed. His thought content revealed no suicidal ideation with no active plan currently. He denied any homicidal ideation. There was no evidence of delusional thinking. He denied any auditory or visual hallucinations and did not appear to be responding to internal stimuli. His attention span appeared poor. His insight was limited. His judgment was fair. His impulse control appeared poor. Vitals/I&O/Wt Last Vital Signs Temp 97.8 F 01/25/25 13:42 Pulse 91 01/25/25 13:42 Resp 18 01/25/25 13:42 BP 106/66 01/25/25 13:42 Pulse Ox 95 01/25/25 13:42 O2 Del Method Room Air 01/25/25 13:42 01/25/25 01/25/25 01/25/25 06:59 14:59 22:59 Intake Total 1120 / 1120 Balance 1120 / 1120 Weight last 48 hrs Weight 80.739 kg Data NPU 01/23/25 22:45 01/23/25 22:45 A&P Assessment and plan 1. Unspecified psychosis: 2. Bipolar disorder, unspecified: 3. Suicidal ideation: 4. Homicidal ideation: Plan: 49-year-old male with a history of multiple inpatient hospitalizations along with a likely mood disorder and active substance abuse readmitted this month currently endorsing suicidal and homicidal ideation in the context of homelessness. #1.? Engage patient in individual milieu and group therapy. #2?? Recommend sober living treatment at the highest level of care to which the patient is willing to commit #3???Continue invega to 6mg at night, continue trazodone and other outpatient medications. ? #4?? TO-15 minute checks? #5?? Will attempt to gather collateral information PDMP PDMP Reviewed: Not Reviewed Involuntary Hold Information 2 Hold Status: Legal Status: 96 Hour Hold Date/Time Hold Expires: 01/27/25 Attestations NPU 2 Medical Necessity Statement*: Inpatient hospitalization is medically necessary and deemed to ?be ?the clinically appropriate intervention ?at this time.? We will monitor/initiate medications and make changes as indicated.?The patient?s likely length of stay 1-2 days. Coding Level of Care Code Acute Code for Chg Fwd Diagnoses Unspecified psychosis F29 Bipolar disorder, unspecified F31.9 Suicidal ideation R45.851 Homicidal ideation R45.850
[2025-01-25 16:59] VITALS: BP 137/79; PULSE 99; RESP 18; TEMP 36.8; O2SAT 96
[2025-01-25 19:55] VITALS: BP 114/72; PULSE 79; RESP 16; TEMP 36.4; O2SAT 97
[2025-01-25] MEDS: paliperidone ER 6 mg Tablet PO (20:54)
[2025-01-26 06:00] VITALS: BP 115/69; PULSE 65; RESP 18; TEMP 36.5; O2SAT 98
[2025-01-26 07:07] VITALS: BP 115/69; PULSE 65; RESP 18; TEMP 36.5; O2SAT 98
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
== END 2025-01-26 07:26 | disposition home or self-care (01) | DRG 885 ==
LOC: ER 22:43 → NP 23:05
PROVIDERS: Admitting Provider Psychiatry & Neurology Psychiatry; Emergency Provider Physician Assistant; Visit Provider Psychiatry & Neurology Psychiatry
DX: F20.9 Schizophrenia, unspecified (principal); R45.851 Suicidal ideations; Z59.01 Sheltered homelessness; F31.81 Bipolar II disorder; R45.850 Homicidal ideations; F17.210 Nicotine dependence, cigarettes, uncomplicated; F17.290 Nicotine dependence, other tobacco product, uncomplicated; F12.11 Cannabis abuse, in remission; Z81.8 Family history of other mental and behavioral disorders; F15.10 Other stimulant abuse, uncomplicated; F41.9 Anxiety disorder, unspecified; Z79.51 Long term (current) use of inhaled steroids; J44.9 Chronic obstructive pulmonary disease, unspecified
CPT/HCPCS: 36415; 80053; 80306; 80307; 81003; 85025; 97150; 97165; 99285; J9999

== ENCOUNTER 2025-02-02 18:01 | Inpatient (IN) | payer MEDICAID, SELFPAY ==
[2025-02-02 18:11] VITALS: BP 116/65; PULSE 108; RESP 18; TEMP 37.1; O2SAT 98
--- NOTE | 2025-02-02 18:24 | ED_ITS ---
HPI - General Adult 2 General: Chief complaint: Psychiatric Symptoms Stated complaint: left foot injury, funes bites on body, want MHE Time Seen by Provider: 02/02/25 18:24 History of Present Illness: 49-year-old man with a history of depres titus with multiple admissions to psychiatric admissions in the past. He has been taking his depression medications he says. He says over the last couple of days he has felt more suicidal. He said he has been suicidal off and on for years. He has several somatic complaints. He has a scab on his arm. He has some mosquito bites. Related Data Home Medications ?Medication ?Instructions ?Recorded ?Confirmed Lubricant Eye Drops 1.4 % eye-both QID PRN Dry E ye(S) 12/29/24 01/24/25 hydrocortisone 1 % topical QID PRN Itching 12/29/24 01/24/25 ibuprofen 800 mg PO BID PRN Pain 12/2901/24/25 Previous Rx's ?Medication ?Instructions ?Recorded albuterol sulfate 90 mcg/actuation 2 puff inhalation Q 6H PRN 10/09/20 aerosol inhaler shortness of breath or wheez ing #18 grams hydroxyzine pamoate 25 mg capsule 50 mg (2 x 25 mg) PO Q6H PRN 12/30/24 Anxiety 30 days #120 caps paliperidone 6 mg tablet,extended 6 mg PO 2100 30 days #30 tabs 01/25/25 release 24 hr trazodone 50 mg tablet 50 mg PO BEDTIME PRN Sleep 3 0 days 01/25/25 #30 tabs Allergies Allergy/AdvReac Type Severity Reaction Status Date / Time cashew nut Allergy Severe ALGY-Anaphy Verified 01/23/25 21:43 laxis diazepam (From Valium) Allergy Severe he was in Verified 01/23/25 21:43 a coma Review of Systems 2 Narrative: Constitutional symptoms: Negative except as documented in HPI. Skin symptoms: Negative except as documented in HPI. Eye symptoms: Negative except as documented in HPI. ENMT symptoms: Negative except as documented in HPI. Respiratory symptoms: Negative except as documented in HPI. Cardiovascular symptoms: Negative except as documented in HPI. Gastrointestinal symptoms: Negative except as documented in HPI. Genitourinary symptoms: Negative except as documented in HPI. Musculoskeletal symptoms: Negative except as documented in HPI. Neurologic symptoms: Negative except as documented in HPI. Psychiatric symptoms: Negative except as documented in HPI. Endocrine symptoms: Negative except as documented in HPI. PFSH ED 2 PFSH: Medical History (Updated 02/02/25 @ 19:25 by Marie Wiggins MD) Psychiatric care Prostatitis, acute Sexual dysfunction BPH (benign prostatic hyperplasia) Smoker Lumbar disc disease with radiculopathy COPD (chronic obstructive pulmonary disease) with chronic bronchitis Hypoxia, sleep related Bronchitis [place] use Bipolar 2 disorder Anxiety Family History Other Cancer Psychiatric illness Social History Smoking and tobacco/nicotine status: heavy tobacco/nicotine user cigarettes Packs smoked per day: 0.5 and smokeless tobacco Smokeless tobacco user: snuff Alcohol intake: current Alcohol intake frequency: holidays/special occasions only Substance/Drug Use: former Marital status: Number of children: 0 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 Skin: Warm, dry. Head: Normocephalic, atraumatic. Neck: Supple, trachea midline. Eye: Extraocular movements are intact. Ears, nose, mouth and throat: mucosa moist. Cardiovascular: Regular, Normal peripheral perfusion. Respiratory: Lungs are clear to auscultation, respirations are non-labored, breath sounds are equal, Symmetrical chest wall expansion. Gastrointestinal: Soft, Nontender, Non distended Musculoskeletal: Normal ROM, no deformity. Neurological: Alert and oriented, No focal neurological deficit observed. Psychiatric: Cooperative, patient states that he is feeling suicidal Course 2 Vital Signs: Vital signs: Vital Signs Temperature 98.7 F 02/02/25 18:11 Pulse Rate 108 H 02/02/25 18:11 Respiratory Rate 18 02/02/25 18:11 Blood Pressure 116/65 02/02/25 18:11 Pulse Oximetry 98 02/02/25 18:11 Oxygen Delivery Me thod Room Air 02/02/25 18:11 MDM - General Adult Medical Decision Making Differential diagnosis: Patient with reported depression and suicidal ideation. concerns for infection, alcohol intoxication, cardiac issues or other medical problems prior to psychiatric admission. Workup: labwork, ekg ordered to evaluate the pathologies and to clear the patient medically prior to psychiatric admission Consultation: Dr. Paez will take the patient to the floor pending bedside freeing up tomorrow. Assessment and plan: Suicidal ideation Depression ? A 6-hour hold was placed -Admission to neuropsychiatric unit for continued evaluation and treatment. - All lab work was reviewed and interpreted personally by myself, the ER physician - Evaluation and treatment of this problem were appropriate in the emergency setting Lab Data 02/02/25 18:50 02/02/25 18:50 Laboratory Results WBC 15.63 10^3/uL (3.29-11.43) H 02/02/25 18:50 RBC 4.29 10^6/uL (3.85-5.65) 02/02/25 18:50 Hgb 13.40 g/dL (11.27-16.99) 02/02/25 18:50 Hct 39.9 % (37-53) 02/02/25 18:50 MCV 93.0 fl (82-101) 02/02/25 18:50 MCH 31.2 pg (27-33) 02/02/25 18:50 MCHC 33.6 g/dL (30-55) 02/02/25 18:50 RDW 13.5 % (12.1-15.1) 02/02/25 18:50 Plt Count 151 10^3/cmm (157-399) L 02/02/25 18:50 MPV 11.0 fL (7.4-10.4) H 02/02/25 18:50 Neut % (Auto) 81.9 % 02/02/25 18:50 Lymph % (Auto) 10.2 % 02/02/25 18:50 [place] % (Auto) 6.6 % 02/02/25 18:50 Eos % (Auto) 0.4 % 02/02/25 18:50 Baso % (Auto) 0.4 % 02/02/25 18:50 Neut # (Auto) 12.81 10^3/uL (1.8-7.7) H 02/02/25 18:50 Lymph # (Auto) 1.6 10^3/uL (0.8-4.8) 02/02/25 18:50 [place] # (Auto) 1.0 10^3/uL (0.2-0.9) H 02/02/25 18:50 Eos # (Auto) 0.1 10^3/uL (0.0-0.8) 02/02/25 18:50 Baso # (Auto) 0.1 10^3/uL (0.0-0.1) 02/02/25 18:50 Nucleated RBC % (auto) 0 % 02/02/25 18:50 Nucleated RBCs # 0.0 /100WBC 02/02/25 18:50 No radiology studies performed this visit Discharge Plan Discharge Patient Disposition: Admitted As Inpatient Clinical Impression: Suicidal ideation, Depression Condition: Stable Coding Level of Care Code ED Executive Director 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
[2025-02-02 19:02] LABS: Hematocrit 39.9 % (37-53); Hemoglobin 13.40 g/dL (11.27-16.99); Mean Corpuscular HGB Conc 33.6 g/dL (30-55); Mean Corpuscular Hemoglobin 31.2 pg (27-33); Mean Corpuscular Volume 93.0 fl (82-101); Nucleated Red Blood Cells % 0 %; Platelet Count 151 10^3/cmm (157-399); Red Blood Count 4.29 10^6/uL (3.85-5.65); White Blood Count 15.63 10^3/uL (3.29-11.43)
--- NOTE | 2025-02-02 19:10 | ECG_ITS ---
[facility] Pat Name: Lane Keene Department: Room: Gender: Male [employer]: : 1975 Requested By: Marie Butler Order Number: [id number] Willy MD: ADAM WATTS Measurements Intervals [place] Rate: 93 P: 60 [place]: 152 QRS: 66 QRSD: 98 T: 45 QT: 318 QTc: 395 Interpretive Statements SINUS RHYTHM No previous ECG available for comparison Electronically Signed On 02-05-2025 23:23:34 CDT by ADAM WATTS [email or web address]
[2025-02-02 19:35] LABS: Alanine Aminotransferase 19 U/L (0-41); Albumin Level 3.9 g/dL (3.5-5.2); Alkaline Phosphatase 82 U/L (40-130); Anion Gap 16.6 (5-19); Aspartate Amino Transferase 22 U/L (0-40); Blood Urea Nitrogen 16 mg/dL (6-20); Calcium 8.5 mg/dL (8.5-10.5); Carbon Dioxide 22 mmol/L (22-29); Chloride 101 mmol/L (98-107); Globulin 3.2 g/dL (1.3-4.6); Glucose 108 mg/dL (65-115); Osmolality Calculated 284 mOsm/kg (285-295); Potassium 3.6 mmol/L (3.5-5.1); Sodium 136 mmol/L (136-145); Thyroid Stimulating Hormone 0.17 uIU/mL (0.27-4.20); Total Protein 7.1 g/dL (6.6-8.7)
[2025-02-02 19:48] LABS: Acetaminophen < 5.0 ug/mL (10-30); Alcohol Level < 10 mg/dL (0-10); Salicylate < 0.3 mg/dL (3-10)
[2025-02-03 00:13] VITALS: RESP 19
[2025-02-03 01:12] LABS: Add Urine Microscopic? NO
[2025-02-03 01:16] LABS: Glucose Urine UA Negative (Normal); Nitrate Urine Negative (Negative); Specific Gravity, Urine 1.014 (1.005-1.030)
[2025-02-03 01:22] LABS: PCP Screen Urine Negative (Negative)
[2025-02-03 01:43] LABS: Charge for UA Resulting for Rev
[2025-02-03 08:53] VITALS: BP 103/61; PULSE 96; O2SAT 95
--- NOTE | 2025-02-03 12:23 | XRR_ITS ---
PROCEDURE INFORMATION: Exam: XR Left Foot Exam date and time: 02/03/2025 12:54 PM Age: 49 years old Clinical indication: Left; -lt lat foot pain after impact injury; Additional info: Left foot pain TECHNIQUE: Imaging protocol: Radiologic exam of the left foot. Views: 3 or more views. COMPARISON: No relevant prior studies available. FINDINGS: Bones/joints: Normal. Soft tissues: Normal. XR/XR foot LT min 3V* [id number] IMPRESSION: No acute findings.
[2025-02-03 14:28] VITALS: BP 116/73; PULSE 82; O2SAT 95
[2025-02-03 14:39] VITALS: BP 115/72; PULSE 96; RESP 20; TEMP 36.9; O2SAT 95
[2025-02-03 20:02] VITALS: BP 113/71; PULSE 93; RESP 19; TEMP 36.7; O2SAT 99
[2025-02-04 05:39] VITALS: BP 103/62; PULSE 85; RESP 18; TEMP 37.1; O2SAT 97
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
[2025-02-04 13:04] VITALS: BP 88/52; PULSE 73; RESP 22; TEMP 36.3; O2SAT 97
[2025-02-04 19:45] VITALS: BP 117/67; PULSE 87; RESP 17; TEMP 36.6; O2SAT 98; BMI 28.5
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
--- NOTE | 2025-02-04 22:30 | P.CONIM_ITS ---
Providers/Reason For Consult 2 Consulting Physician/Specialty*: PATIENCE SCHUYLER--DO patient seen and evaluated before midnight Reason for Consult*: Management of multiple insect bites with cellulitis Requesting Physician: Dr. Paez Attending Physician: Delonte Paez MD History of Present Illness History of Present Illness Lane Keene is a 49 year old male with history significant for homicidal ideation suicidal ideation bipolar disorder and unspecified psychosis with depression who had been in the psych [facility] admitted yesterday for care. Patient also [place] and got bitten by chiggers or some insects on the bilateral foot below the knees but more so in the ankle region. The bites look infected multiple cellulitis around the bites they wear at least a total of 7 bites with redness. Patient had 1 lesion that is open at the left upper extremities on the dorsum of the left arm with some drainage. When asked about this because it did not look like any bites patient related that it was due to a burn. This bite has been at least 1 week patient had not taken any antibiotics patient has circumferential area of erythema significant for cellulitis. Patient had had x-ray of the feet knees with no acute process no complaints of bony lesions or any subcutaneous infection. This is classically insect bites with cellulitis. Some of them was indurated. I will cover patient with dual antibiotics 1 to cover gram-positive's and another to cover anaerobes and gram-negative with doxycycline and Augmentin respectively Review of Systems 2 Narrative: System review upon 10 organ review were unremarkable except for integumentary system skin with cellulitis of the lower extremities due to infected insect bites Medications/Allergies Home Medications ?Medication ?Instructions ?Recorded ?Confirmed ?Last Taken ?Type hydrocortisone 1 % topical QID PRN Itching 12/29/24 02/03/25 Unknown History hydroxyzine pamoate 25 mg capsule 50 mg (2 x 25 mg) PO Q6H PRN 12/30/24 02/03/25 Unknown Rx Anxiety 30 days #120 caps trazodone 50 mg tablet 50 mg PO BEDTIME PRN Sleep 3 0 days 01/25/25 02/03/25 Unknown Rx #30 tabs ibuprofen 200 mg tablet 400 mg PO Q6H PRN Pain 02/0302/03/25 Unknown History paliperidone 6 mg tablet,extended 6 mg PO .@1200 02/0302/03/25 Unknown History release 24 hr polyvinyl alcohol 1.4 % eye drops 1 drp ophthalmic (ey e) QID PRN Dry 02/03/25 02/03/25 Unknown History Eyes Allergies Allergy/AdvReac Type Severity Reaction Status Date / Time cashew nut Allergy Severe ALGY-Anaphy Verified 01/23/25 21:43 laxis diazepam (From Valium) Allergy Severe he was in Verified 01/23/25 21:43 a coma Current Medications Generic Name Dose Route Start Last Admin Trade Name Freq PRN Reason Stop Dose Admin Hydroxyzine Pamoate 50 mg 02/03/25 14:39 02/04/25 20:53 Hydroxyzine 25 Mg Capsule PO 50 mg Q6H PRN Administration ANXIETY Ibuprofen 600 mg 02/03/25 14:39 02/04/25 20:52 Ibuprofen 600 Mg Tablet PO 600 mg Q6H PRN Administration MODERATE PAIN Nicotine Polacrilex 2 mg 02/03/25 14:39 02/03/25 19:39 Nicotine 2 Mg Gum BUCCAL 2 mg Q2H PRN Administration NICOTINE WITHDRAWAL Nicotine Polacrilex 4 mg 02/04/25 05:36 02/04/25 20:53 Nicotine 4 Mg Lozenge MUCOUS MEM 4 mg Q2H PRN Administration NICOTINE CRAVINGS Olanzapine 5 mg 02/03/25 14:39 02/04/25 20:53 Olanzapine 5 Mg Odt PO 5 mg Q4H PRN Administration Agitation/Psychosis Trazodone HCl 50 mg 02/03/25 14:39 02/04/25 20:53 Trazodone 50 Mg Tablet PO 50 mg BEDTIME PRN Administration SLEEP PFSH Acute 2 PFSH: Medical History Psychiatric care Prostatitis, acute Sexual dysfunction BPH (benign prostatic hyperplasia) Smoker Lumbar disc disease with radiculopathy COPD (chronic obstructive pulmonary disease) with chronic bronchitis Hypoxia, sleep related Bronchitis [place] use Bipolar 2 disorder Anxiety Family History Other Cancer Psychiatric illness Social History Smoking and tobacco/nicotine status: heavy tobacco/nicotine user cigarettes Packs smoked per day: 0.5 and smokeless tobacco Smokeless tobacco user: snuff Alcohol intake: current Alcohol intake frequency: holidays/special occasions only Substance/Drug Use: former Marital status: Number of children: 0 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 Current gender identity: Male Vitals/I&O/Wt Last Vital Signs Temp 97.8 F 02/04/25 19:45 Pulse 87 02/04/25 19:45 Resp 17 02/04/25 19:45 BP 117/67 02/04/25 19:45 Pulse Ox 98 02/04/25 19:45 O2 Del Method Room Air 02/04/25 19:45 02/04/25 02/04/25 02/04/25 06:59 14:59 22:59 Intake Total 360 / 360 360 / 720 Balance 360 / 360 360 / 720 Weight last 48 hrs Weight 85.049 kg Weight 79.379 kg Physical Exam 2 Narrative: Generally patient is doing well in no apparent distress HEENT normocephalic atraumatic neck neck is supple cardiovascular heart rate is regular lungs are pretty much clear abdomen soft nontender nondistended unremarkable extremities are intact no edema has good pulses neurology has no focality lab studies lab studies reviewed and noted. White count is elevated at 15,000 compared to a week ago white count was normal at 8. Data 02/02/25 18:50 02/02/25 18:50 A&P Assessment and plan 1. Cellulitis and abscess of le. Homicidal ideation: 3. Suicidal ideation: 4. Bipolar disorder, unspecified: 5. Unspecified psychosis: 6. Depression: Plan: Multiple cellulitis surrounding area of insect bites - Will treat with oral antibiotics at this point - I have initiated doxycycline to cover gram-positive's such as staph and strep for 10 days - Will continue with Augmentin covering anaerobic's and gram-negative for 10 days - There is an area of the dorsum of the left upper extremity significant for a bone scan that is weeping, culture taken this will also be taken care of with antibiotics ordered - Follow cultures of this left upper arm wound and optimize accordingly Psychiatric illness reference-depression/bipolar disorder/unspecified psychosis/homicidal ideation/suicidal ideation - I deferred to the primary psychiatric team physician PDMP PDMP Reviewed: Not Reviewed Coding Level of Care Code 12674 Diagnoses Cellulitis and abscess of leg L03.119; L02.419 Homicidal ideation R45.850 Suicidal ideation R45.851 Bipolar disorder, unspecified F31.9 Unspecified psychosis F29 Depression F32.A Time Spent (min) 60
[2025-02-05 06:00] VITALS: BP 113/69; PULSE 71; RESP 16; TEMP 36.4; O2SAT 96
[2025-02-05 14:00] VITALS: BP 103/66; PULSE 85; RESP 15; TEMP 36.9; O2SAT 97
--- NOTE | 2025-02-05 14:42 | P.NPUPN_ITS ---
Subjective NPU 2 Subjective: Patient presented today reporting things are going okay. He reports that it appears that maybe his medication was not stolen and it was just misplaced. He reports that his significant other contacted him and told him that she found some of the stuff. He was excited about that given that he did not want to have any problem with filling medications at discharge. We discussed the social work team returning tomorrow and a plan for his discharge then and he was happy about that. He denied any side effects to his medication Mental Status Exam 2 MSE Comments: This is a well-nourished well-developed white male in hospital scrubs with poor grooming and adequate eye contact. Poor dentition. No abnormal movements except for mild psychomotor retardation. Cooperative with exam in mild distress. Speech was slightly decreased rate and volume mood described as better, affect congruent and slightly subdued. Thought process organized. Thought content: Patient denies suicidal or homicidal ideation, there were no delusions reported or noted, he denied any auditory or visual hallucinations. Attention and concentration were intact and memory appeared mostly reliable but no more formally tested. He is alert and oriented x 3. Insight, judgment and impulse control are impaired. Vitals/I&O/Wt Last Vital Signs Temp 97.5 F L 02/05/25 06:00 Pulse 71 02/05/25 06:00 Resp 16 02/05/25 06:00 BP 113/69 02/05/25 06:00 Pulse Ox 96 02/05/25 06:00 O2 Del Method Room Air 02/05/25 06:00 02/04/25 02/05/25 02/05/25 22:59 06:59 14:59 Intake Total 360 / 720 Balance 360 / 720 Weight last 48 hrs Weight 85.049 kg Weight 79.379 kg Data NPU 02/02/25 18:50 02/02/25 18:50 A&P Assessment and plan 1. Unspecified psychosis: 2. Bipolar disorder, unspecified: 3. Suicidal ideation: 4. Homicidal ideation: Plan: 49-year-old male with a history of multiple inpatient hospitalizations along with a likely mood disorder and active substance abuse readmitted this month once again being readmitted after a recent admission and discharge currently endorsing suicidal and homicidal ideation in the context of homelessness. 1. Continue current medication. 2. Continue every 15 minute checks for safety. 3. Encourage individual, group and milieu therapy. 4. Encourage sober living treatment after discharge at the highest level care he is willing to commit. 5. Obtain collateral information. 6. Evaluate against the backdrop of the 96-hour hold. 7. Appreciate hospitalist consult and will follow recommendations as indicated. PDMP PDMP Reviewed: Not Reviewed Involuntary Hold Information 2 Hold Status: Legal Status: 96 Hour Hold Date/Time Hold Expires: 02/08/2025 @ 1840 Attestations NPU 2 Medical Necessity Statement*: Inpatient hospitalization is medically necessary and the clinically appropriate intervention at this time. Will monitor/initiate medications and make changes as indicated. Likely length of stay 1-3 days. Coding Level of Care Code Acute Code for Chg Fwd Diagnoses Unspecified psychosis F29 Bipolar disorder, unspecified F31.9 Suicidal ideation R45.851 Homicidal ideation R45.850
[2025-02-05] MEDS: neomycin-poly-bacitracin oint 28 gm 1 APPLIC TOPICAL (14:47)
--- NOTE | 2025-02-05 17:04 | P.PN_ITS ---
Subjective 2 Subjective: scattered insect bites on calves and ankles, some clear discharge, no pruritus. Vitals/I&O/Wt Last Vital Signs Temp 98.5 F 02/05/25 14:00 Pulse 85 02/05/25 14:00 Resp 15 02/05/25 14:00 BP 103/66 02/05/25 14:00 Pulse Ox 97 02/05/25 14:00 O2 Del Method Room Air 02/05/25 06:00 Weight last 48 hrs Weight 85.049 kg Weight 79.379 kg Physical Exam 2 Const: COMMON NORMALS: no acute distress, average body habitus and patient oriented x3 HENMT: COMMON NORMALS: normocephalic and atraumatic HEAD & SCALP: n ormocephalic and atraumatic TEETH & GINGIVA: Yes poor dentition Eye: COMMON NORMALS: Equal, round and reactive pupils present and EOMs intact bilaterally PUPIL: Yes Equal, round and reactive pupils present Resp: COMMON NORMALS: normal respiratory effort, No retractions and No use of accessory muscles Cardio: COMMON NORMALS: regular rate and regular rhythm RATE: regular rate RHYTHM: regular rhythm Extremity: OTHER: multiple scattered raised lesions with clear discharge, forming eschars. Neuro: COMMON NORMALS: patient oriented x3 Data 02/02/25 18:50 02/02/25 18:50 Micro: Microbiology 02/04/25 23:25 Gram Stain - Final Arm - Wound A&P Assessment and plan 1. Cellulitis and abscess of le. Suicidal ideation: Plan: 49 year old male presenting to neuro-psych for SI. Multiple cellulitis surrounding area of insect bites - cont. oral antibiotics: doxycycline, Augmentin for 10 days total. - culture pending from left upper arm lesion. - appears to be healing well, he denies pruritus. Psychiatric illness reference-depression/bipolar disorder/unspecified psychosis/homicidal ideation/suicidal ideation - deferred to the primary psychiatric team physician PDMP PDMP Reviewed: Not Reviewed Attestations 2 Medical Necessity Statement*: Ongoing inpatient neuro-psych therapy per psychiatric team. Coding Level of Care Code Acute Code for [facility] Diagnoses Cellulitis and abscess of leg L03.119; L02.419 Suicidal ideation R45.858
[2025-02-05 19:53] VITALS: BP 110/69; PULSE 83; RESP 18; TEMP 36.9; O2SAT 96
[2025-02-06 06:00] VITALS: BP 112/73; PULSE 76; RESP 18; TEMP 36.7; O2SAT 96
--- NOTE | 2025-02-06 12:46 | W.PM.NPUDCS ---
Diagnoses at Discharge Discharge Diagnosis 1. Unspecified psychosis: 2. Bipolar disorder, unspecified: 3. Suicidal ideation: 4. Homicidal ideation: Reason for Visit Reason for Visit: left foot injury, funes bites on body, want [facility] Involuntary Hold Information Hold Status: Legal Status: 96 Hour Hold Date/Time Hold Expires: 02/08/2025 @ 1840 Discharge Data Studies Completed and Pending: Completed Studies During Hospitalization Category Date Time Status XR foot LT min 3V * [id number] Stat Exams 02/03/25 12:23 Completed Pending at discharge Category Date Time Status Anaerobic Culture Routine Lab 02/04/25 23:29 Received Wound Culture and Gram Stain Routin e Lab 02/04/25 23:25 Results Radiology Impressions Foot X-Ray 02/03/25 12:23 IMPRESSION: No acute findings. Laboratory Results WBC 15.63 10^3/uL (3. 29-11.43) H 02/02/25 18:50 RBC 4.29 10^6/uL (3.8 5-5.65) 02/02/25 18:50 Hgb 13.40 g/dL (11.27 -16.99) 02/02/25 18:50 Hct 39.9 % (37-53) 02/02/25 18:50 MCV 93.0 fl (82-101) 02/02/25 18:50 MCH 31.2 pg (27-33) 02/02/25 18:50 MCHC 33.6 g/dL (30-55) 02/02/25 18:50 RDW 13.5 % (12.1-15.1 ) 02/02/25 18:50 Plt Count 151 10^3/cmm (157 -399) L 02/02/25 18:50 MPV 11.0 fL (7.4-10.4 ) H 02/02/25 18:50 Neut % (Auto) 81.9 % 02/02/25 18:50 Lymph % (Auto) 10.2 % 02/02/25 18:50 [place] % (Auto) 6.6 % 02/02/25 18:50 Eos % (Auto) 0.4 % 02/02/25 18:50 Baso % (Auto) 0.4 % 02/02/25 18:50 Neut # (Auto) 12.81 10^3/uL (1. 8-7.7) H 02/02/25 18:50 Lymph # (Auto) 1.6 10^3/uL (0.8- 4.8) 02/02/25 18:50 [place] # (Auto) 1.0 10^3/uL (0.2- 0.9) H 02/02/25 18:50 Eos # (Auto) 0.1 10^3/uL (0.0- 0.8) 02/02/25 18:50 Baso # (Auto) 0.1 10^3/uL (0.0- 0.1) 02/02/25 18:50 Nucleated RBC % (a uto) 0 % 02/02/25 18:50 Nucleated RBCs # 0.0 /100WBC 02/02/25 18:50 Sodium 136 mmol/L (136-1 45) 02/02/25 18:50 Potassium 3.6 mmol/L (3.5-5 .1) 02/02/25 18:50 Chloride 101 mmol/L (98-10 7) 02/02/25 18:50 Carbon Dioxide 22 mmol/L (22-29) 02/02/25 18:50 Anion Gap 16.6 (5-19) 02/02/25 18:50 BUN 16 mg/dL (6-20) 02/02/25 18:50 Creatinine 1.1 mg/dL (0.7-1. 2) 02/02/25 18:50 GFR Calculation 71.1 mL/min (90-1 30) L 02/02/25 18:50 Glucose 108 mg/dL (65-115 ) 02/02/25 18:50 Calculated Osmolal ity 284 mOsm/kg (285- 295) L 02/02/25 18:50 Calcium 8.5 mg/dL (8.5-10 .5) 02/02/25 18:50 Total Bilirubin 0.6 mg/dL (0.15-1 .2) 02/02/25 18:50 AST 22 U/L (0-40) 02/02/25 18:50 ALT 19 U/L (0-41) 02/02/25 18:50 Alkaline Phosphata se 82 U/L (40-130) 02/02/25 18:50 Total Protein 7.1 g/dL (6.6-8.7 ) 02/02/25 18:50 Albumin 3.9 g/dL (3.5-5.2 ) 02/02/25 18:50 Globulin 3.2 g/dL (1.3-4.6 ) 02/02/25 18:50 TSH 0.17 uIU/mL (0.27 -4.20) L 02/02/25 18:50 Urine Color Yellow (Yellow) 02/03/25 01:06 Urine Appearance Clear (CLEAR) 02/03/25 01:06 Urine pH 6.5 (5-7) 02/03/25 01:06 Ur Specific Gravit y 1.014 (1.005-1.0 30) 02/03/25 01:06 Urine Protein Negative (Negati ve) 02/03/25 01:06 Urine Glucose (UA) Negative (Normal ) 02/03/25 01:06 Urine Ketones Negative (Negati ve) 02/03/25 01:06 Urine Blood Negative (Negati ve) 02/03/25 01:06 Urine Nitrate Negative (Negati ve) 02/03/25 01:06 Urine Bilirubin Negative (Negati ve) 02/03/25 01:06 Urine Urobilinogen 2.0 mg/dL (Negati ve) H 02/03/25 01:06 Ur Leukocyte Armida ase Negative (Negati ve) 02/03/25 01:06 Amorphous Sediment Not Reportable 02/03/25 01:06 Salicylates < 0.3 mg/dL (3-10 ) L 02/02/25 18:50 Urine Opiates Scre en Negative ng/mL (N egative) 02/03/25 01:06 Acetaminophen < 5.0 ug/mL (10-3 0) L 02/02/25 18:50 Ur Barbiturates Sc reen Negative ng/mL (N egative) 02/03/25 01:06 Ur Phencyclidine S crn Negative ng/mL (N egative) 02/03/25 01:06 Ur Amphetamines Sc reen Negative ng/mL (N egative) 02/03/25 01:06 U Benzodiazepines Scrn Negative ng/mL (N egative) 02/03/25 01:06 Urine Cocaine Scre en Negative ng/mL (N egative) 02/03/25 01:06 U Marijuana (THC) Screen Negative ng/mL (N egative) 02/03/25 01:06 Ethyl Alcohol < 10 mg/dL (0-10) 02/02/25 18:50 Vitals: Last Vital Signs Temp 98.0 F 02/06/25 06:00 Pulse 76 02/06/25 06:00 Resp 18 02/06/25 06:00 BP 112/73 02/06/25 06:00 Pulse Ox 96 02/06/25 06:00 O2 Del Method Room Air 02/06/25 06:00 Discharge Plan Discharge Patient Disposition: Home Condition: Stable Prescriptions: New Triple Antibiotic 3.5mg-400 unit- 5,000 unit/gram Ointment 1 applic topical TID PRN (Reason: Rash) 14 Days Qty: 1 0RF doxycycline monohydrate 100 mg Tablet 100 mg PO BID 9 Days Qty: 18 0RF amoxicillin-pot clavulanate 875-125 mg Tablet 1 tab PO BID 9 Days Qty: 18 0RF Continued hydrocortisone cream 1 % topical QID PRN (Reason: Itching) hydroxyzine pamoate 25 mg Capsule 50 mg PO Q6H PRN (Reason: Anxiety) 30 Days Qty: 120 1RF trazodone 50 mg Tablet 50 mg PO BEDTIME PRN (Reason: Sleep) 30 Days Qty: 30 1RF polyvinyl alcohol [Lubricant Eye (polyv alcohol)] 1.4 % Drops 1 drp OPHTHALMIC (EYE) QID PRN (Reason: Dry Eyes) ibuprofen 200 mg Tablet 400 mg PO Q6H PRN (Reason: Pain) paliperidone 6 mg tablet extended release 24hr 6 mg PO .@1200 Discharge Order = DC NOW: Discharge Order (Routine); Ordered 02/06/25 Ordered By: Delonte Paez Discharge Diet: Regular Discharge Activity: Resume usual activity Patient Instructions: Opioid Safety, Patient Portal & Ambika Instructions Coding Level of Care Code Acute Code for Chg Fwd Diagnoses Unspecified psychosis F29 Bipolar disorder, unspecified F31.9 Suicidal ideation R45.851 Homicidal ideation R45.850
[2025-02-06 12:48] VITALS: BP 112/73; PULSE 76; RESP 18; TEMP 36.6; O2SAT 96
== END 2025-02-06 13:54 | disposition home or self-care (01) | DRG 885 ==
LOC: ER 02-03 00:07 → NP 02-03 13:39
PROVIDERS: Admitting Provider Psychiatry & Neurology Psychiatry; Emergency Provider Emergency Medicine; Visit Provider Psychiatry & Neurology Psychiatry
DX: F29 Unspecified psychosis not due to a substance or known physiological condition (principal); L03.116 Cellulitis of left lower limb; L03.115 Cellulitis of right lower limb; R45.851 Suicidal ideations; Z59.02 Unsheltered homelessness; F31.81 Bipolar II disorder; R45.850 Homicidal ideations; N53.9 Unspecified male sexual dysfunction; N40.0 Benign prostatic hyperplasia without lower urinary tract symptoms; M54.16 Radiculopathy, lumbar region; J44.9 Chronic obstructive pulmonary disease, unspecified; F41.9 Anxiety disorder, unspecified; F17.210 Nicotine dependence, cigarettes, uncomplicated; F17.220 Nicotine dependence, chewing tobacco, uncomplicated
CPT/HCPCS: 36415; 73630; 80053; 80306; 80307; 81003; 84443; 85025; 87070; 87075; 87205; 93005; 97165; 99285; J9999

== ENCOUNTER 2025-03-03 12:32 | Emergency (ER) | payer MEDICAID, SELFPAY ==
--- OUTSIDE RECORDS SUMMARY | 2025-03-03 12:38 | XMS_ITS | Clinical Summary ---
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
[2025-03-03 12:48] VITALS: BP 145/73; PULSE 89; RESP 16; TEMP 36.8; O2SAT 97; BMI 27.3
--- NOTE | 2025-03-03 13:17 | ED_ITS ---
HPI - Extremity Problem General: Chief complaint: Extremity Problem,Nontraumatic Stated complaint: R foot pain going up leg Time Seen by Provider: 03/03/25 13:12 Source: patient Mode of arrival: ambulatory Limitations: no limitations History of Present Illness: Patient is a 49-year-old male presents to ED today with complaint of anterior pain to his right lower leg that he has noticed over the past several days. Patient states he is homeless and walks miles on asphalt in poor shoe wear daily. He has not noticed any significant edema to the legs although does feel like he has some degree of swelling to the anterior portion of the right lower leg. He has not had any injury or trauma or recent falls. He is not complaining of numbness, tingling, loss of sensation to the leg. He has not noticed any color or temperature changes. No overlying redness or warmth. Pain is mainly present with walking. MD Complaint: extremity pain Onset (ago): day(s) Pain Consistency: constant Location: right and lower extremity Radiation: none Relieving factors: immobilization Exacerbating factors: weight bearing and walking Associated symptoms: Reports no associated symptoms; Deny chest pain, fever(s) or rash Related Data Home Medications ?Medication ?Instructions ?Recorded ?Confirmed hydrocortisone 1 % topical QID PRN Itching 12/29/24 02/03/25 paliperidone 6 mg tablet,extended 6 mg PO .@1200 02/0302/03/25 release 24 hr polyvinyl alcohol 1.4 % eye drops 1 drp ophthalmic (ey e) QID PRN Dry 02/03/25 02/03/25 Eyes Previous Rx's ?Medication ?Instructions ?Recorded hydroxyzine pamoate 25 mg capsule 50 mg (2 x 25 mg) PO Q6H PRN 12/30/24 Anxiety 30 days #120 caps trazodone 50 mg tablet 50 mg PO BEDTIME PRN Sleep 3 0 days 01/25/25 #30 tabs ibuprofen 800 mg tablet 800 mg PO Q8H PRN pain #20 t abs 03/03/25 methylprednisolone 4 mg tablets in See Rx Instructions PO .COMPLEX 03/03/25 a dose pack (Medrol (Zain)) #21 ea Allergies Allergy/AdvReac Type Severity Reaction Status Date / Time cashew nut Allergy Severe ALGY-Anaphy Verified 01/23/25 21:43 laxis diazepam (From Valium) Allergy Severe he was in Verified 01/23/25 21:43 a coma Review of Systems Const: Denies: fever(s) Card: Denies: chest pain Resp: Denies: dyspnea Musc: Reports: extremity pain; Denies: neck pain, extremity swelling, joint pain, joint swelling, joint redness, joint warmth, joint stiffness, limited range of motion, muscle cramps or muscle weakness Skin/Breast: Denies: rash or erythema Neuro: Denies: numbness in extremities, weakness in extremities, sensory changes or difficulty walking PFSH ED PFSH: Medical History Psychiatric care Prostatitis, acute Sexual dysfunction BPH (benign prostatic hyperplasia) Smoker Lumbar disc disease with radiculopathy COPD (chronic obstructive pulmonary disease) with chronic bronchitis Hypoxia, sleep related Bronchitis [place] use Bipolar 2 disorder Anxiety Family History Other Cancer Psychiatric illness Social History Smoking and tobacco/nicotine status: heavy tobacco/nicotine user cigarettes Packs smoked per day: 0.5 and smokeless tobacco Smokeless tobacco user: snuff Alcohol intake: current Alcohol intake frequency: holidays/special occasions only Substance/Drug Use: former Marital status: Number of children: 0 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 Current gender identity: Male Physical Exam Const: COMMON NORMALS: no acute distress, average body habitus, no limitations, healthy appearing, alert and well nourished GENERAL APPEARANCE: cooperative OTHER: ambulatory here without difficulty or assistance Resp: COMMON NORMALS: normal respiratory effort and clear to auscultation bilaterally AUSCULTATION: clear to auscultation bilaterally Cardio: COMMON NORMALS: regular rate and regular rhythm RATE: regular rate RHYTHM: regular rhythm Extremity: COMMON NORMALS: full ROM, capillary refill normal, no calf tenderness and no pedal edema GENERAL: Yes normal exam except as noted RIGHT LOWER EXTREMITY: Yes lower leg (TTP medial anterior R lower leg) Right lower leg: Yes inspection (normal gross inspection) and Yes neurovascular exam (normal) Neuro: COMMON NORMALS: moves all extremities, no focal motor deficits, no sensory deficits noted and gait normal SENSORIUM/ORIENTATION: Yes alert Skin: COMMON NORMALS: no rashes or lesions noted GENERAL SKIN EXAM: no rashes or lesions noted Course Vital Signs: Vital signs: Vital Signs Temperature 98.3 F 03/03/25 12:48 Pulse Rate 89 03/03/25 12:48 Respiratory Rate 16 03/03/25 12:48 Blood Pressure 145/73 03/03/25 12:48 Pulse Oximetry 97 03/03/25 12:48 Oxygen Delivery Me thod Room Air 03/03/25 12:48 MDM - Extremity (Nontraumatic) Medical Decision Making Given patient's history and physical examination, I think most likely he has medial tibial stress syndrome (aka sin splints ). Discussed rest as much as feasibly possible. Ice and elevation can help. Will place him on anti- inflammatories and steroids. Discussed improved shoe wear although this will obviously be a barrier as he is homeless with no income. Medical Records I reviewed the patient's medical records. No radiology studies performed this visit Discharge Plan Discharge Patient Disposition: Home Clinical Impression: Medial tibial stress syndrome of right lower leg Qualifiers: Encounter type: initial encounter Qualified Code(s): S86.891A - Other injury of other muscle(s) and tendon(s) at lower leg level, right leg, initial encounter Condition: Stable Prescriptions: New ibuprofen 800 mg tablet 800 mg PO Q8H PRN (Reason: pain) Qty: 20 0RF methylprednisolone [Medrol (Zain)] 4 mg tablets,dose pack See Rx Instructions .ROUTE .COMPLEX Qty: 21 0RF Rx Instructions: orally per package directions Discontinued ibuprofen 200 mg Tablet 400 mg PO Q6H PRN (Reason: Pain) No Action hydrocortisone cream 1 % topical QID PRN (Reason: Itching) hydroxyzine pamoate 25 mg Capsule 50 mg PO Q6H PRN (Reason: Anxiety) 30 Days Qty: 120 1RF trazodone 50 mg Tablet 50 mg PO BEDTIME PRN (Reason: Sleep) 30 Days Qty: 30 1RF polyvinyl alcohol 1.4 % Drops 1 drp OPHTHALMIC (EYE) QID PRN (Reason: Dry Eyes) paliperidone 6 mg tablet extended release 24hr 6 mg PO .@1200 Discharge Orders: Discharge ED (Routine); Ordered 03/03/25 Ordered By: Vianca Gamez Patient Instructions: Patient Portal & Ambika Instructions, Sin Splints Print Language: Colombian Coding Level of Care Code ED Tank Washer for Ghanshyam Nathan
[2025-03-03 14:00] VITALS: BP 134/69; PULSE 90; O2SAT 97
== END 2025-03-03 14:00 | disposition home or self-care (01) ==
PROVIDERS: Emergency Provider Physician Assistant
DX: S86.891A Other injury of other muscle(s) and tendon(s) at lower leg level, right leg, initial encounter (principal); F17.210 Nicotine dependence, cigarettes, uncomplicated; J44.9 Chronic obstructive pulmonary disease, unspecified; X58.XXXA Exposure to other specified factors, initial encounter
CPT/HCPCS: 96372; 99284; J1100; J1885

== ENCOUNTER 2025-03-07 15:19 | Inpatient (IN) | payer MEDICAID, SELFPAY ==
[2025-03-07 15:20] VITALS: BP 159/84; PULSE 127; RESP 16; TEMP 37.2; O2SAT 97; BMI 42.5
--- NOTE | 2025-03-07 15:20 | ECG_ITS ---
[facility] Test Date: 2025-03-07 Pat Name: Lane Keene Department: Room: Gender: Male Cardiac Rn: : 1975 Requested By: Marie Butler Order Number: [id number] Aguilera MD: Devaughn Nuñez M.D. Measurements Intervals [place] Rate: 105 P: 53 AL: 151 QRS: 33 QRSD: 92 T: 16 QT: 320 QTc: 424 Interpretive Statements SINUS TACHYCARDIA POSSIBLE LEFT ATRIAL ENLARGEMENT [-0.1mV P-WAVE IN V1/V2] POSSIBLE LEFT VENTRICULAR HYPERTROPHY [VOLTAGE CRITERIA PLUS LAE OR QRS WIDENING] Compared to ECG 02/02/2025 19:10:10 There is no significant change Electronically Signed On 03-08-2025 20:19:31 [employer] by Devaughn Nuñez M.D. [email or web address]
--- NOTE | 2025-03-07 15:20 | ED.C_ITS ---
HPI - Psych 2 General: Chief Complaint: Psychiatric Symptoms Stated Complaint: SI Time Seen by Provider: 03/07/25 15:20 History of Present Illness: 50-year-old man with a history of psychi atric issues, BPH, tobacco dependence, COPD, bipolar disorder who presents to the emergency room with police after an incident in public. Apparently by report his girlfriend had cheated on him and he became very distraught and has been drinking. He cut himself down his arms superficially multiple times and then when the police arrived he passed a bottle into his head. He has another superficial laceration there. He is tearful and agitated. He demands he wants to go home. Police feel he is a risk to himself and others. Related Data Home Medications ?Medication ?Instructions ?Recorded ?Confirmed hydrocortisone 1 % topical QID PRN Itching 12/29/24 03/07/25 paliperidone 6 mg tablet,extended 6 mg PO .@1200 02/0303/07/25 release 24 hr polyvinyl alcohol 1.4 % eye drops 1 drp ophthalmic (ey e) QID PRN Dry 02/03/25 03/07/25 Eyes Previous Rx's ?Medication ?Instructions ?Recorded trazodone 50 mg tablet 50 mg PO BEDTIME PRN Sleep 3 0 days 01/25/25 #30 tabs ibuprofen 800 mg tablet 800 mg PO Q8H PRN pain #20 t abs 03/03/25 methylprednisolone 4 mg tablets in See Rx Instructions PO .COMPLEX 03/03/25 a dose pack (Medrol (Zain)) #21 ea Allergies Allergy/AdvReac Type Severity Reaction Status Date / Time cashew nut Allergy Severe ALGY-Anaphy Verified 01/23/25 21:43 laxis diazepam (From Valium) Allergy Severe he was in Verified 01/23/25 21:43 a coma Review of Systems 2 Narrative: Constitutional symptoms: Negative except as documented in HPI. Skin symptoms: Negative except as documented in HPI. Eye symptoms: Negative except as documented in HPI. ENMT symptoms: Negative except as documented in HPI. Respiratory symptoms: Negative except as documented in HPI. Cardiovascular symptoms: Negative except as documented in HPI. Gastrointestinal symptoms: Negative except as documented in HPI. Genitourinary symptoms: Negative except as documented in HPI. Musculoskeletal symptoms: Negative except as documented in HPI. Neurologic symptoms: Negative except as documented in HPI. Psychiatric symptoms: Negative except as documented in HPI. Endocrine symptoms: Negative except as documented in HPI. PFSH ED 2 PFSH: Medical History (Updated 03/07/25 @ 16:03 by Marie Wiggins MD) Psychiatric care Prostatitis, acute Sexual dysfunction BPH (benign prostatic hyperplasia) Smoker Lumbar disc disease with radiculopathy COPD (chronic obstructive pulmonary disease) with chronic bronchitis Hypoxia, sleep related Bronchitis Tice use Bipolar 2 disorder Anxiety Family History Other Cancer Psychiatric illness Social History Smoking and tobacco/nicotine status: heavy tobacco/nicotine user cigarettes Packs smoked per day: 0.5 and smokeless tobacco Smokeless tobacco user: snuff Alcohol intake: current Alcohol intake frequency: holidays/special occasions only Substance/Drug Use: former Marital status: Number of children: 0 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 Skin: Warm, dry. Multiple superficial lacerations running from shoulder down to his wrist. Small superficial laceration of the central frontal scalp area. Head: Normocephalic, atraumatic. Neck: Supple, trachea midline. Eye: Extraocular movements are intact. Ears, nose, mouth and throat: mucosa moist. Cardiovascular: Regular, Normal peripheral perfusion. Respiratory: Lungs are clear to auscultation, respirations are non-labored, breath sounds are equal, Symmetrical chest wall expansion. Gastrointestinal: Soft, Nontender, Non distended Musculoskeletal: Normal ROM, no deformity. Neurological: Alert and oriented, No focal neurological deficit observed. Psychiatric: Patient is not very cooperative, he is agitated, he appears depressed. He currently denies suicidal and homicidal ideation. He does say he has not been taking his medication and has been drinking Course 2 Vital Signs: Vital signs: Vital Signs Temperature 99.0 F 03/07/25 15:20 Pulse Rate 108 H 03/07/25 16:39 Respiratory Rate 16 03/07/25 15:20 Blood Pressure 133/86 03/07/25 16:39 Pulse Oximetry 96 03/07/25 16:39 Oxygen Delivery Me thod Room Air 03/07/25 16:39 MDM - Psych Medical Decision Making Medical decision making: Patient's reason for coming to the emergency room brought by police for self- harm and concern for his safety. Social determinants: Patient is unemployed. I reviewed the patient's medical record. 50-year-old man with a history of psychiatric issues, BPH, tobacco dependence, COPD, bipolar disorder . Had recent admission just under a month ago. I reviewed the patient's current home meds Alternate historians: Police gave alternate history and wrote an affidavit. Differential diagnosis: Patient with reported depression and suicidal ideation. concerns for infection, alcohol intoxication, cardiac issues or other medical problems prior to psychiatric admission. Workup: labwork, ekg ordered to evaluate the pathologies and to clear the patient medically prior to psychiatric admission EKG: Time 1546. Rate 105. Sinus tachycardia, No ST-T changes, no ectopy, normal AL & QRS intervals, This was reviewed and interpreted by myself the ER physician at 1550. Lab Review: Laboratory results were reviewed and interpreted by myself the emergency room physician. - Medically cleared. - EKG shows no ischemic changes. - Blood alcohol level is 200 -Tylenol and salicylate levels are negative. - Urinalysis and drug screen are pending - No anemia. - BUN and creatinine are within normal limits. Assessment of risk: - Level of risk: high risk. Patient has self-harm and seems to be very impulsive. - Was hospitalization considered? Patient is being hospitalized is Consultation: I spoke with Dr. Paez who is on-call for psychiatry who agrees to admission. He agrees with a 96-hour hold Assessment and plan: Self-mutilation Alcohol intoxication Agitation ? Vikash ZIMMERMAN and 96-hour hold -Admission to neuropsychiatric unit for continued evaluation and treatment. - All lab work was reviewed and interpreted personally by myself, the ER physician - Evaluation and treatment of this problem were appropriate in the emergency setting Lab Data 03/07/25 15:29 03/07/25 15:29 Laboratory Results WBC 12.05 10^3/uL (3.29-11.43) H 03/07/25 15: RBC 4.97 10^6/uL (3.85-5.65) 03/07/25 15: Hgb 15.10 g/dL (11.27-16.99) 03/07/25 15: Hct 46.2 % (37-53) 03/07/25 15: MCV 93.0 fl (82-101) 03/07/25 15: MCH 30.4 pg (27-33) 03/07/25 15: MCHC 32.7 g/dL (30-55) 03/07/25 15: RDW 13.8 % (12.1-15.1) 03/07/25 15: Plt Count 201 10^3/cmm (157-399) 03/07/25 15: MPV 10.4 fL (7.4-10.4) 03/07/25 15: Neut % (Auto) 64.0 % 03/07/25 15: Lymph % (Auto) 25.2 % 03/07/25: Lynn % (Auto) 6.6 % 03/07/25 15: Eos % (Auto) 3.2 % 03/07/25: Baso % (Auto) 0.6 % 03/07/25: Neut # (Auto) 7.71 10^3/uL (1.8-7.7) H 03/07/25 15: Lymph # (Auto) 3.0 10^3/uL (0.8-4.8) 03/07/25: Lynn # (Auto) 0.8 10^3/uL (0.2-0.9) 03/07/25 15: Eos # (Auto) 0.4 10^3/uL (0.0-0.8) 03/07/25: Baso # (Auto) 0.1 10^3/uL (0.0-0.1) 03/07/25 15: Nucleated RBC % (auto) 0 % 03/07/25 15: Nucleated RBCs # 0.0 /100WBC 03/07/25 15: Sodium 141 mmol/L (136-145) 03/07/25 15: Potassium 3.6 mmol/L (3.5-5.1) 03/07/25 15: Chloride 105 mmol/L (98-107) 03/07/25 15: Carbon Dioxide 21 mmol/L (22-29) L 03/07/25 15: Anion Gap 18.6 (5-19) 03/07/25 15:29 BUN 19 mg/dL (6-20) 03/07/25 15:29 Creatinine 1.0 mg/dL (0.7-1.2) 03/07/25 15:29 GFR Calculation 79.1 mL/min (90-130) L 03/07/25 15:29 Glucose 94 mg/dL (65-115) 03/07/25 15:29 Calculated Osmolality 294 mOsm/kg (285-295) 03/07/25 15:29 Calcium 8.7 mg/dL (8.5-10.5) 03/07/25 15:29 Total Bilirubin 0.3 mg/dL (0.15-1.2) 03/07/25 15:29 AST 29 U/L (0-40) 03/07/25 15:29 ALT 23 U/L (0-41) 03/07/25 15:29 Alkaline Phosphatase 91 U/L (40-130) 03/07/25 15:29 Total Protein 7.7 g/dL (6.6-8.7) 03/07/25 15:29 Albumin 4.4 g/dL (3.5-5.2) 03/07/25 15:29 Globulin 3.3 g/dL (1.3-4.6) 03/07/25 15:29 TSH 0.63 uIU/mL (0.27-4.20) 03/07/25 15:29 Salicylates < 0.3 mg/dL (3-10) L 03/07/25 15:29 Acetaminophen < 5.0 ug/mL (10-30) L 03/07/25 15:29 Ethyl Alcohol 209 mg/dL (0-10) H 03/07/25 15:29 No radiology studies performed this visit Discharge Plan Discharge Patient Disposition: Admitted As Inpatient Admit Provider: Delonte Paez Clinical Impression: Self-mutilation, Alcohol intoxication, Medical non-compliance Condition: Stable Coding Level of Care Code ED Radiology Physician Assistant for Ghanshyam Nathan
--- OUTSIDE RECORDS SUMMARY | 2025-03-07 15:26 | XMS_ITS | Clinical Summary ---
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
[2025-03-07 15:35] LABS: Hematocrit 46.2 % (37-53); Hemoglobin 15.10 g/dL (11.27-16.99); Mean Corpuscular HGB Conc 32.7 g/dL (30-55); Mean Corpuscular Hemoglobin 30.4 pg (27-33); Mean Corpuscular Volume 93.0 fl (82-101); Nucleated Red Blood Cells % 0 %; Platelet Count 201 10^3/cmm (157-399); Red Blood Count 4.97 10^6/uL (3.85-5.65); White Blood Count 12.05 10^3/uL (3.29-11.43)
[2025-03-07 16:02] LABS: Alanine Aminotransferase 23 U/L (0-41); Albumin Level 4.4 g/dL (3.5-5.2); Alcohol Level 209 mg/dL (0-10); Alkaline Phosphatase 91 U/L (40-130); Anion Gap 18.6 (5-19); Aspartate Amino Transferase 29 U/L (0-40); Blood Urea Nitrogen 19 mg/dL (6-20); Calcium 8.7 mg/dL (8.5-10.5); Carbon Dioxide 21 mmol/L (22-29); Chloride 105 mmol/L (98-107); Creatinine Clr Calc Pharmacy 114.8030; Globulin 3.3 g/dL (1.3-4.6); Glucose 94 mg/dL (65-115); Osmolality Calculated 294 mOsm/kg (285-295); Potassium 3.6 mmol/L (3.5-5.1); Sodium 141 mmol/L (136-145); Thyroid Stimulating Hormone 0.63 uIU/mL (0.27-4.20); Total Protein 7.7 g/dL (6.6-8.7)
[2025-03-07 16:03] LABS: Acetaminophen < 5.0 ug/mL (10-30); Salicylate < 0.3 mg/dL (3-10)
--- NOTE | 2025-03-07 16:12 | PC.PHAR ---
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 Pt is growing impatient
[2025-03-07 16:39] VITALS: BP 133/86; PULSE 108; O2SAT 96
--- NOTE | 2025-03-07 16:46 | PC.NURSE ---
96 hr rights reviewed with pt @2751 with assistance of [facility] county records management officer Jorge Ochoa. Pt verbalized he understood what hold parameters meant, but stated he was not going to stay. HS reeducated that pt would not be allowed to leave AMA because of hold being in place and that only a psychiatrist could determine his dc date/time. Pt stated he did not care, and that he was leaving [facility] regardless and would not be here tomorrow. HS assisted security in dressing pt out. Belongings were collected. Pt declined a beverage or snack when asked. HS then spoke with [facility] charge nurse and stated pt needed to be on [place] for admission d/t statements of eloping. Security present for conversation with pt.
--- NOTE | 2025-03-07 17:22 | PC.ADMIT ---
215 1 2 [facility] Admission Note: The patient,Lane Keene,50 y/o, was given written information regarding hospital policies, unit procedures and contact persons. Patient's smoking status: heavy tobacco smoker. Vital Signs - 8 hr 03/07/25 15:20 03/07/25 16:39 03/07/25 17:02 Temperature 99.0 F Pulse Rate 127 H 108 H Respiratory Rate 16 Blood Pressure 159/84 133/86 Pulse Oximetry 97 96 Oxygen Delivery Method Room Air Room Air Room Air Pt. brought in by PD on a 96 hr hold to the ER admitted to [facility]. Pt. stated it is his 50th BD and his GF cheated on him. He says he was hurting and cut himself to ease his pain. Pt. stated he would not hurt himself if he meant to cut himself it would have been must worse. Pt. has a long non open scratch to the left forearm, and a couple skin abrasions to the left head. Pt. says he lives in a tent in the [facility] parking lot, and his GF lives in the [facility].
--- NOTE | 2025-03-07 17:40 | PC.NURSE ---
medications reconciled
--- NOTE | 2025-03-07 18:09 | PC.NURSE ---
Dr. Paez gave verbal order for Geodon 20mg IM one x only for agitation.
[2025-03-07 18:43] LABS: Glucose Urine UA Negative (Normal); Nitrate Urine Negative (Negative); Specific Gravity, Urine 1.023 (1.005-1.030)
--- NOTE | 2025-03-07 18:50 | PC.NURSE ---
pt came to unit with nikky waterman. asked pt if we could throw away and get him another pair on discharge. pt stated we could throw them away
[2025-03-07 19:03] LABS: PCP Screen Urine Negative (Negative)
[2025-03-07 19:13] LABS: Add Urine Microscopic? YES
[2025-03-07 19:17] LABS: UA Slide Review UA Slide Review Perf
[2025-03-07 20:00] VITALS: BP 109/63; PULSE 87; RESP 16; TEMP 36.8; O2SAT 95
[2025-03-08] VITALS (7 sets, daily range): BP systolic 106–132; BP diastolic 62–74; PULSE 56–85; RESP 16–18; TEMP 36.8–37.2; O2SAT 95–98
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
[2025-03-09 04:00] VITALS: BP 118/68; PULSE 59; RESP 16; TEMP 36.6; O2SAT 99
[2025-03-09 08:00] VITALS: BP 121/66; PULSE 64; RESP 17; TEMP 36.9; O2SAT 96
--- NOTE | 2025-03-09 10:56 | PC.NURSE ---
Pt. wt today. 178
[2025-03-09] MEDS: paliperidone ER 6 mg Tablet PO (11:22)
[2025-03-09 14:00] VITALS: BP 133/72; PULSE 78; RESP 18; TEMP 36.9; O2SAT 98
--- NOTE | 2025-03-09 20:23 | P.NPUPN_ITS ---
Subjective NPU 2 Subjective: Patient presented today reporting that things are going fine. He continued to lobby for discharge by giving all of the logistics of how he is going to have a place to stay and have access to certain meetings and reportedly has everything in place to prevent him from having problems in the future. We discussed for him to have success however he has to be able to face the challenges that are identified. We discussed the treatment team's position that he still needs to have more aggressive treatment and that instead of focusing on a job immediately and he should try to focus on sobriety. Denies any side effects to his medication. Mental Status Exam 2 MSE Comments: This is this is a well-nourished well-developed white male in hospital scrubs with poor grooming and adequate eye contact. Poor dentition. No abnormal movements except for mild psychomotor agitation. Cooperative with exam in mild distress. Speech was slightly increased rate and volume. Mood described as better than yesterday I was just drunk, affect congruent and slightly less irritable. Thought process organized. Thought content: Patient denies suicidal or homicidal ideation, there were no delusions reported or noted, he denied any auditory or visual hallucinations. Attention and concentration were intact and memory appeared mostly reliable but no more formally tested. He is alert and oriented x 3. Insight, judgment and impulse control are impaired. Vitals/I&O/Wt Last Vital Signs Temp 98.4 F 03/09/25 14:00 Pulse 78 03/09/25 14:00 Resp 18 03/09/25 14:00 BP 133/72 03/09/25 14:00 Pulse Ox 98 03/09/25 14:00 O2 Del Method Room Air 03/09/25 14:00 Weight last 48 hrs Weight 80.739 kg Data NPU 03/07/25 15:29 03/07/25 15:29 A&P Assessment and plan 1. Unspecified psychosis: 2. Bipolar disorder, unspecified: 3. Suicidal ideation: 4. Homicidal ideation: Plan: This is a 50-year-old male with a history of multiple inpatient hospitalizations along with a likely mood disorder and active substance abuse who was last here last month once again being readmitted with active addiction UDS positive for amphetamines and blood alcohol level 209. Denied any need for inpatient hospitalization. 1. Continue current medication. 2. Continue every 15 minute checks for safety. 3. Encourage individual, group and milieu therapy. 4. Encourage sober living treatment after discharge at the highest level care he is willing to commit. 5. Obtain collateral information. 6. Evaluate against the backdrop of the 96-hour hold. Tentative plan for discharge tomorrow. PDMP PDMP Reviewed: Not Reviewed Involuntary Hold Information 2 Hold Status: Legal Status: 96 Hour Hold Date/Time Hold Expires: 03/14/25 @00:01 Attestations NPU 2 Medical Necessity Statement*: Inpatient hospitalization is medically necessary and the clinically appropriate intervention at this time. Will monitor/initiate medications and make changes as indicated. Likely length of stay 1-3 days. Coding Level of Care Code Acute Code for Chg Fwd Diagnoses Unspecified psychosis F29 Bipolar disorder, unspecified F31.9 Suicidal ideation R45.851 Homicidal ideation R45.850
[2025-03-09 20:49] VITALS: BP 115/65; PULSE 68; RESP 17; TEMP 36.3; O2SAT 97
[2025-03-10 06:00] VITALS: BP 114/75; PULSE 78; RESP 18; TEMP 36.4; O2SAT 92
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
[2025-03-10] MEDS: multivitamin therapeutic Tablet 1 TAB PO (08:19)
[2025-03-10 11:06] VITALS: BP 145/97; PULSE 106; RESP 16; TEMP 36.4; O2SAT 97
== END 2025-03-10 11:50 | disposition home or self-care (01) | DRG 753 ==
LOC: ER 16:14 → NP 16:31
PROVIDERS: Admitting Provider Psychiatry & Neurology Psychiatry; Emergency Provider Emergency Medicine; Visit Provider Psychiatry & Neurology Psychiatry
DX: F31.9 Bipolar disorder, unspecified (principal); F29 Unspecified psychosis not due to a substance or known physiological condition; R45.851 Suicidal ideations; R45.850 Homicidal ideations; F15.20 Other stimulant dependence, uncomplicated; Z62.810 Personal history of physical and sexual abuse in childhood; F17.210 Nicotine dependence, cigarettes, uncomplicated; F10.129 Alcohol abuse with intoxication, unspecified; Y90.7 Blood alcohol level of 200-239 mg/100 ml
CPT/HCPCS: 36415; 80053; 80306; 80307; 81001; 84443; 85025; 93005; 97150; 97165; 99285; J9999

== ENCOUNTER 2025-03-28 14:42 | Inpatient (IN) | payer MEDICAID, SELFPAY ==
[2025-03-28 14:42] VITALS: BP 114/78; PULSE 91; RESP 17; TEMP 36.4; O2SAT 98; BMI 27.0
--- NOTE | 2025-03-28 14:57 | ED.C_ITS ---
Documented by User: JOSTIN Mccormick 03/28/25 15:55 HPI - Psych 2 General: Chief Complaint: Psychiatric Symptoms Stated Complaint: si Source: patient and old records reviewed Mode of arrival: EMS Limitations: no limitations History of Present Illness: Patient is a 50-year-old male who presents to the emergency department by ambulance for reports of suicidal ideation. He was seen here in the emergency department on 03/07 and admitted to the neuropsychiatric unit, ultimately was restarted on Invega and trazodone and discharged with outpatient follow-ups and patient also states that he was feeling quite a bit better at discharge. He tells me that he has not been taking medications at home, he has continued to live in a barn and today had worsening suicidal thoughts and worsening symptoms of schizophrenia. He tells me he had a plan to hang himself in the barn, he tells me that he is unable to wait to his [facility] appointment on March 28 which is today but he tells me that he did not realize that that was the day. States that he last used drugs 3 days ago, does not elaborate on this. Denies any alcohol use today. No homicidal ideation, he states that he has been seeing [place]. Patient states he thinks he needs to come back into the psychiatric unit because he cannot wait any longer. MD complaint: suicidal ideation, feels depressed and other (Symptoms of acute psychosis, visual hallucinations) Duration: constant History of same: Yes Context: recent drug abuse and not taking psychiatric medications Associated symptoms: Reports visual hallucinations, depression and suicidal ideation; Deny auditory hallucinations or homicidal ideation If self harm: admits thoughts of self harm and has plan Details of plan: Hanging himself Related Data Home Medications ?Medication ?Instructions ?Recorded ?Confirmed paliperidone 6 mg tablet,extended 6 mg PO .@1200 03/2803/28/25 release 24 hr (Invega) Previous Rx's ?Medication ?Instructions ?Recorded thiamine mononitrate (vit B1) 100 100 mg PO DAILY 30 d ays #30 tabs 03/10/25 mg tablet (Vitamin B-1 (mononitrate)) Allergies Allergy/AdvReac Type Severity Reaction Status Date / Time cashew nut Allergy Severe ALGY-Anaphy Verified 01/23/25 21:43 laxis diazepam (From Valium) Allergy Severe he was in Verified 01/23/25 21:43 a coma Review of Systems 2 General: Reports: 10 or more systems reviewed and unremarkable except in HPI and below Const: Denies: fever(s), chills or fatigue Eyes: Denies: change in vision ENMT: Denies: throat pain, ear or mastoid pain or nasal discharge Card: Denies: chest pain, palpitations, swelling of feet/ankles or lightheadedness Resp: Denies: dyspnea, productive cough or wheezing GI: Denies: abdominal pain, nausea, vomiting, diarrhea or constipation : Denies: flank pain, difficulty urinating, dysuria or urinary frequency Musc: Denies: neck pain, back pain or joint pain Skin/Breast: Denies: rash Neuro: Denies: headache(s), numbness in extremities or weakness in extremities Psych: Reports: anxiety, depression, sleeping less, paranoia, visual hallucinations and suicidal ideation; Denies: auditory hallucinations or homicidal ideation PFSH ED 2 PFSH: Medical History Psychiatric care Prostatitis, acute Sexual dysfunction BPH (benign prostatic hyperplasia) Smoker Lumbar disc disease with radiculopathy COPD (chronic obstructive pulmonary disease) with chronic bronchitis Hypoxia, sleep related Bronchitis [place] use Bipolar 2 disorder Anxiety Family History Other Cancer Psychiatric illness Social History Smoking and tobacco/nicotine status: heavy tobacco/nicotine user cigarettes Packs smoked per day: 0.5 and smokeless tobacco Smokeless tobacco user: snuff Alcohol intake: current Alcohol intake frequency: holidays/special occasions only Substance/Drug Use: former Marital status: Number of children: 0 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 Current gender identity: Male Physical Exam 2 Const: COMMON NORMALS: no acute distress, patient oriented x3 and no limitations GENERAL APPEARANCE: cooperative, comfortable and well developed ORIENTATION/CONSCIOUSNESS: Yes awake, Yes oriented to person, Yes oriented to place and Yes oriented to time HENMT: COMMON NORMALS: normocephalic, atraumatic and hearing grossly normal bilaterally HEAD & SCALP: normocephalic and atraumatic Neck/C-Spine: COMMON NORMALS: full ROM, supple and no JVD Resp: COMMON NORMALS: normal respiratory effort, No retractions, No use of accessory muscles and clear to auscultation bilaterally AUSCULTATION: clear to auscultation bilaterally Cardio: COMMON NORMALS: no JVD, regular rate, regular rhythm, No clicks present (Cardio), No murmurs present (Cardio) and No rub (Cardio) RATE: r egular rate RHYTHM: regular rhythm Extremity: COMMON NORMALS: normal to inspection, full ROM and capillary refill normal Neuro: COMMON NORMALS: patient oriented x3, moves all extremities, no focal motor deficits and no sensory deficits noted SENSORIUM/ORIENTATION: Yes oriented to person, Yes oriented to place and Yes oriented to time Psych: APPEARANCE: Yes unkempt ATTITUDE: Yes paranoid ACTIVITY/MOTOR BEHAVIOR: Yes psychomotor agitation THOUGHT CONTENT: Yes Suicidality present, No Homicidality present and Yes Hallucination(s) present visual Skin: COMMON NORMALS: no rashes or lesions noted GENERAL SKIN EXAM: no rashes or lesions noted Course 2 Vital Signs: Vital signs: Vital Signs Temperature 97.8 F 03/28/25 20:09 Pulse Rate 87 03/28/25 20:09 Respiratory Rate 18 03/28/25 20:09 Blood Pressure 112/68 03/28/25 20:09 Pulse Oximetry 95 03/28/25 20:09 Oxygen Delivery Me thod Room Air 03/28/25 20:09 MDM - Psych Medical Decision Making Patient presented by ambulance for reports of suicidal ideation, and continued symptoms of psychosis he was admitted here in the middle of the month for similar and discharged. He was started on trazodone Invega but patient states he has not been taking any medications. He has continued to use drugs and drink alcohol, states that he has been homeless as well. Plan was to hang himself in his barn that he lives, and he endorses visual hallucinations in which she has been seeing [place]. Cleared medically, there are no affidavits in his file but I spoke to Dr. Paez who is agreeable to placing him in the neuropsychiatric unit for further evaluation at this time. Spoke to Dr. Collier in regards to this patient's case. Lab Data 03/28/25 14:51 03/28/25 14:51 Laboratory Results WBC 8.85 10^3/uL (3.29-11.43) 03/28/25 14:51 RBC 5.05 10^6/uL (3.85-5.65) 03/28/25 14:51 Hgb 15.30 g/dL (11.27-16.99) 03/28/25 14:51 Hct 47.1 % (37-53) 03/28/25 14:51 MCV 93.3 fl (82-101) 03/28/25 14:51 MCH 30.3 pg (27-33) 03/28/25 14:51 MCHC 32.5 g/dL (30-55) 03/28/25 14:51 RDW 13.4 % (12.1-15.1) 03/28/25 14:51 Plt Count 342 10^3/cmm (157-399) 03/28/25 14:51 MPV 11.4 fL (7.4-10.4) H 03/28/25 14:51 Neut % (Auto) 60.9 % 03/28/25 14:51 Lymph % (Auto) 26.0 % 03/28/25 14:51 [place] % (Auto) 8.9 % 03/28/25 14:51 Eos % (Auto) 3.4 % 03/28/25 14:51 Baso % (Auto) 0.6 % 03/28/25 14:51 Neut # (Auto) 5.39 10^3/uL (1.8-7.7) 03/28/25 14:51 Lymph # (Auto) 2.3 10^3/uL (0.8-4.8) 03/28/25 14:51 [place] # (Auto) 0.8 10^3/uL (0.2-0.9) 03/28/25 14:51 Eos # (Auto) 0.3 10^3/uL (0.0-0.8) 03/28/25 14:51 Baso # (Auto) 0.1 10^3/uL (0.0-0.1) 03/28/25 14:51 Nucleated RBC % (auto) 0 % 03/28/25 14:51 Nucleated RBCs # 0.0 /100WBC 03/28/25 14:51 Sodium 138 mmol/L (136-145) 03/28/25 14:51 Potassium 3.7 mmol/L (3.5-5.1) 03/28/25 14:51 Chloride 99 mmol/L (98-107) 03/28/25 14:51 Carbon Dioxide 25 mmol/L (22-29) 03/28/25 14:51 Anion Gap 17.7 (5-19) 03/28/25 14:51 BUN 10 mg/dL (6-20) 03/28/25 14:51 Creatinine 0.7 mg/dL (0.7-1.2) 03/28/25 14:51 GFR Calculation 119.4 mL/min (90-130) 03/28/25 14:51 Glucose 88 mg/dL (65-115) 03/28/25 14:51 Calculated Osmolality 284 mOsm/kg (285-295) L 03/28/25 14:51 Calcium 9.3 mg/dL (8.5-10.5) 03/28/25 14:51 Total Bilirubin 0.4 mg/dL (0.15-1.2) 03/28/25 14:51 AST 25 U/L (0-40) 03/28/25 14:51 ALT 22 U/L (0-41) 03/28/25 14:51 Alkaline Phosphatase 96 U/L (40-130) 03/28/25 14:51 Total Protein 7.4 g/dL (6.6-8.7) 03/28/25 14:51 Albumin 4.3 g/dL (3.5-5.2) 03/28/25 14:51 Globulin 3.1 g/dL (1.3-4.6) 03/28/25 14:51 Salicylates < 0.3 mg/dL (3-10) L 03/28/25 14:51 Acetaminophen < 5.0 ug/mL (10-30) L 03/28/25 14:51 Ethyl Alcohol < 10 mg/dL (0-10) 03/28/25 14:51 No radiology studies performed this visit Discharge Plan Discharge Patient Disposition: Admitted As Inpatient Admit Provider: Delonte Paez Clinical Impression: Suicidal ideation, Acute psychosis Condition: Stable Coding Level of Care Code ED Panel Flow Machine Operator for Chg Fwd Documented by User: Tan Collier DO 03/28/25 21:00 HPI - Psych 2 General: Chief Complaint: Psychiatric Symptoms Stated Complaint: si Related Data Home Medications ?Medication ?Instructions ?Recorded ?Confirmed paliperidone 6 mg tablet,extended 6 mg PO .@1200 03/2803/28/25 release 24 hr (Invega) Previous Rx's ?Medication ?Instructions ?Recorded thiamine mononitrate (vit B1) 100 100 mg PO DAILY 30 d ays #30 tabs 03/10/25 mg tablet (Vitamin B-1 (mononitrate)) Allergies Allergy/AdvReac Type Severity Reaction Status Date / Time cashew nut Allergy Severe ALGY-Anaphy Verified 01/23/25 21:43 laxis diazepam (From Valium) Allergy Severe he was in Verified 01/23/25 21:43 a coma [facility] ED 2 PFSH: Medical History Psychiatric care Prostatitis, acute Sexual dysfunction BPH (benign prostatic hyperplasia) Smoker Lumbar disc disease with radiculopathy COPD (chronic obstructive pulmonary disease) with chronic bronchitis Hypoxia, sleep related Bronchitis [place] use Bipolar 2 disorder Anxiety Family History Other Cancer Psychiatric illness Social History Smoking and tobacco/nicotine status: heavy tobacco/nicotine user cigarettes Packs smoked per day: 0.5 and smokeless tobacco Smokeless tobacco user: snuff Alcohol intake: current Alcohol intake frequency: holidays/special occasions only Substance/Drug Use: former Marital status: Number of children: 0 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 He was started on trazodone Invega but patient states he has not been taking any medications. He has continued to use drugs and drink alcohol, states that he has been homeless as well. Plan was to hang himself in his barn that he lives, and he endorses visual hallucinations in which she has been seeing [place]. Cleared medically, there are no affidavits in his file but I spoke to Dr. Paez who is agreeable to placing him in the neuropsychiatric unit for further evaluation at this time. Spoke to Dr. Collier in regards to this patient's case. Chart reviewed and patient discussed with midlevel. Agree with assessment and plan. Lab Data 03/28/25 14:51 03/28/25 14:51 Laboratory Results WBC 8.85 10^3/uL (3.29-11.43) 03/28/25 14:51 RBC 5.05 10^6/uL (3.85-5.65) 03/28/25 14:51 Hgb 15.30 g/dL (11.27-16.99) 03/28/25 14:51 Hct 47.1 % (37-53) 03/28/25 14:51 MCV 93.3 fl (82-101) 03/28/25 14:51 MCH 30.3 pg (27-33) 03/28/25 14:51 MCHC 32.5 g/dL (30-55) 03/28/25 14:51 RDW 13.4 % (12.1-15.1) 03/28/25 14:51 Plt Count 342 10^3/cmm (157-399) 03/28/25 14:51 MPV 11.4 fL (7.4-10.4) H 03/28/25 14:51 Neut % (Auto) 60.9 % 03/28/25 14:51 Lymph % (Auto) 26.0 % 03/28/25 14:51 [place] % (Auto) 8.9 % 03/28/25 14:51 Eos % (Auto) 3.4 % 03/28/25 14:51 Baso % (Auto) 0.6 % 03/28/25 14:51 Neut # (Auto) 5.39 10^3/uL (1.8-7.7) 03/28/25 14:51 Lymph # (Auto) 2.3 10^3/uL (0.8-4.8) 03/28/25 14:51 [place] # (Auto) 0.8 10^3/uL (0.2-0.9) 03/28/25 14:51 Eos # (Auto) 0.3 10^3/uL (0.0-0.8) 03/28/25 14:51 Baso # (Auto) 0.1 10^3/uL (0.0-0.1) 03/28/25 14:51 Nucleated RBC % (auto) 0 % 03/28/25 14:51 Nucleated RBCs # 0.0 /100WBC 03/28/25 14:51 Sodium 138 mmol/L (136-145) 03/28/25 14:51 Potassium 3.7 mmol/L (3.5-5.1) 03/28/25 14:51 Chloride 99 mmol/L (98-107) 03/28/25 14:51 Carbon Dioxide 25 mmol/L (22-29) 03/28/25 14:51 Anion Gap 17.7 (5-19) 03/28/25 14:51 BUN 10 mg/dL (6-20) 03/28/25 14:51 Creatinine 0.7 mg/dL (0.7-1.2) 03/28/25 14:51 GFR Calculation 119.4 mL/min (90-130) 03/28/25 14:51 Glucose 88 mg/dL (65-115) 03/28/25 14:51 Calculated Osmolality 284 mOsm/kg (285-295) L 03/28/25 14:51 Calcium 9.3 mg/dL (8.5-10.5) 03/28/25 14:51 Total Bilirubin 0.4 mg/dL (0.15-1.2) 03/28/25 14:51 AST 25 U/L (0-40) 03/28/25 14:51 ALT 22 U/L (0-41) 03/28/25 14:51 Alkaline Phosphatase 96 U/L (40-130) 03/28/25 14:51 Total Protein 7.4 g/dL (6.6-8.7) 03/28/25 14:51 Albumin 4.3 g/dL (3.5-5.2) 03/28/25 14:51 Globulin 3.1 g/dL (1.3-4.6) 03/28/25 14:51 Salicylates < 0.3 mg/dL (3-10) L 03/28/25 14:51 Acetaminophen < 5.0 ug/mL (10-30) L 03/28/25 14:51 Ethyl Alcohol < 10 mg/dL (0-10) 03/28/25 14:51 Discharge Plan Discharge Patient Disposition: Admitted As Inpatient Admit Provider: Delonte Paez Clinical Impression: Suicidal ideation, Acute psychosis Condition: Stable Coding Level of Care Code ED Panel Flow Machine Operator for Ghanshyam Nathan
[2025-03-28 15:08] LABS: Hematocrit 47.1 % (37-53); Hemoglobin 15.30 g/dL (11.27-16.99); Mean Corpuscular HGB Conc 32.5 g/dL (30-55); Mean Corpuscular Hemoglobin 30.3 pg (27-33); Mean Corpuscular Volume 93.3 fl (82-101); Nucleated Red Blood Cells % 0 %; Red Blood Count 5.05 10^6/uL (3.85-5.65); White Blood Count 8.85 10^3/uL (3.29-11.43)
[2025-03-28 15:21] LABS: Alanine Aminotransferase 22 U/L (0-41); Albumin Level 4.3 g/dL (3.5-5.2); Alkaline Phosphatase 96 U/L (40-130); Blood Urea Nitrogen 10 mg/dL (6-20); Calcium 9.3 mg/dL (8.5-10.5); Carbon Dioxide 25 mmol/L (22-29); Chloride 99 mmol/L (98-107); Globulin 3.1 g/dL (1.3-4.6); Glucose 88 mg/dL (65-115); Osmolality Calculated 284 mOsm/kg (285-295); Sodium 138 mmol/L (136-145); Total Protein 7.4 g/dL (6.6-8.7)
[2025-03-28 15:26] LABS: Acetaminophen < 5.0 ug/mL (10-30); Alcohol Level < 10 mg/dL (0-10); Salicylate < 0.3 mg/dL (3-10)
[2025-03-28 15:27] LABS: Anion Gap 17.7 (5-19); Aspartate Amino Transferase 25 U/L (0-40); Potassium 3.7 mmol/L (3.5-5.1)
[2025-03-28 15:43] LABS: Platelet Count 342 10^3/cmm (157-399); Slide Review Slide Review Perform
--- OUTSIDE RECORDS SUMMARY | 2025-03-28 16:24 | XMS_ITS | Clinical Summary ---
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
--- NOTE | 2025-03-28 16:53 | PC.PHAR ---
patient states he hasn't been taking his medications because he thought he had them at home but when he got back there they were gone. [facility] states he had meds to bed and left on 03/10/25 with Thiamine and Invega.
[2025-03-28 17:20] VITALS: BP 135/78; PULSE 93; RESP 16; TEMP 36.6; O2SAT 98
[2025-03-28 20:09] VITALS: BP 112/68; PULSE 87; RESP 18; TEMP 36.6; O2SAT 95
[2025-03-29 06:00] VITALS: BP 121/61; PULSE 79; RESP 16; TEMP 36.9; O2SAT 96
[2025-03-29] MEDS: paliperidone ER 6 mg Tablet PO (07:39)
[2025-03-29 08:16] LABS: PCP Screen Urine Negative (Negative)
--- NOTE | 2025-03-29 12:03 | P.NPUHP_ITS ---
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 is willing to commit. 5. Obtain collateral information. 6. Evaluate against the backdrop of the 96-hour hold. PDMP PDMP Reviewed: Not Reviewed Involuntary Hold Information 2 Hold Status: Date/Time Hold Expires: Voluntary Attestations NPU 2 Medical Necessity Statement*: Inpatient hospitalization is medically necessary and the clinically appropriate intervention at this time. Will monitor/initiate medications and make changes as indicated. He will be in the hospital over 2 midnights. Likely length of stay 2 to 4 days. Coding Level of Care Code Acute Code for Chg Fwd Diagnoses Unspecified psychosis F29 Bipolar disorder, unspecified F31.9 Suicidal ideation R45.851 Homicidal ideation R45.850
[2025-03-29 14:00] VITALS: BP 127/78; PULSE 91; RESP 16; TEMP 36.4; O2SAT 99
[2025-03-29 20:07] VITALS: BP 119/68; PULSE 78; RESP 16; TEMP 36.8; O2SAT 97
[2025-03-30 06:00] VITALS: BP 115/69; PULSE 79; RESP 18; TEMP 36.7; O2SAT 96
[2025-03-30] MEDS: paliperidone ER 6 mg Tablet PO (07:42)
--- NOTE | 2025-03-30 12:03 | P.NPUPN_ITS ---
Subjective NPU 2 Subjective: Patient presented today reporting that he is doing fine. He denied any difficulty with the application process and reports that it seems like 1 of these places will likely take him. He is working with the social work team to identify what the criteria and expectations are for the programs. He reports a willingness to attend. He reports a continued focus on his recovery and a willingness to to go to either place. He denied any side effects to the medication. Mental Status Exam 2 MSE Comments: This is this is a well-nourished well-developed white male in hospital scrubs with poor grooming and adequate eye contact. Poor dentition. No abnormal movements except for mild psychomotor agitation. Cooperative with exam in mild distress. Speech was slightly increased rate and volume. Mood described as okay, will be better if 1 of these programs take me, affect congruent and slightly activated. Thought process mostly organized. Thought content: Patient denies suicidal or homicidal ideation but reported starting to have some suicidal thoughts prior to admission, there were no delusions reported or noted, he denied any auditory or visual hallucinations. Attention and concentration were intact and memory appeared mostly reliable but no more formally tested. He is alert and oriented x 3. Insight, judgment and impulse control are impaired. Vitals/I&O/Wt Last Vital Signs Temp 98.0 F 03/30/25 06:00 Pulse 79 03/30/25 06:00 Resp 18 03/30/25 06:00 BP 115/69 03/30/25 06:00 Pulse Ox 96 03/30/25 06:00 O2 Del Method Room Air 03/30/25 06:00 Weight last 48 hrs Weight 80.739 kg Data NPU 03/28/25 14:51 03/28/25 14:51 A&P Assessment and plan 1. Unspecified psychosis: 2. Bipolar disorder, unspecified: 3. Suicidal ideation: 4. Homicidal ideation: Plan: This is a 50-year-old male with a history of multiple inpatient hospitalizations this to the fourth since late December with active substance abuse who was last here less than 3 weeks ago once again readmitted with active addiction UDS positive for amphetamines and and cannabis this time with an unremarkable blood alcohol level and this time desiring hospitalization. Circumstance certainly raises the concern for malingering. 1. Continue current medication. 2. Continue every 15 minute checks for safety. 3. Encourage individual, group and milieu therapy. 4. Encourage sober living treatment after discharge at the highest level care he is willing to commit. Being evaluated by a couple sober living programs. 5. Obtain collateral information. 6. Evaluate against the backdrop of the 96-hour hold. PDMP PDMP Reviewed: Not Reviewed Involuntary Hold Information 2 Hold Status: Date/Time Hold Expires: Voluntary Attestations NPU 2 Medical Necessity Statement*: Inpatient hospitalization is medically necessary and the clinically appropriate intervention at this time. Will monitor/initiate medications and make changes as indicated. Likely length of stay 1 to 4 days. Coding Level of Care Code Acute Code for Chg Fwd Diagnoses Unspecified psychosis F29 Bipolar disorder, unspecified F31.9 Suicidal ideation R45.851 Homicidal ideation R45.850
[2025-03-30 14:00] VITALS: BP 128/67; PULSE 113; RESP 16; TEMP 36.8; O2SAT 96
[2025-03-30 20:52] VITALS: BP 109/64; PULSE 91; RESP 18; TEMP 36.7; O2SAT 95
[2025-03-31 06:00] VITALS: BP 110/69; PULSE 81; RESP 18; TEMP 36.8; O2SAT 97
[2025-03-31] MEDS: paliperidone ER 6 mg Tablet PO (07:16)
[2025-03-31 13:39] VITALS: BP 110/69; PULSE 81; RESP 18; TEMP 36.8; O2SAT 99
== END 2025-03-31 15:00 | disposition home or self-care (01) | DRG 753 ==
LOC: ER 15:54 → NP 16:48
PROVIDERS: Admitting Provider Psychiatry & Neurology Psychiatry; Emergency Provider Physician Assistant; Visit Provider Psychiatry & Neurology Psychiatry
DX: F31.9 Bipolar disorder, unspecified (principal); F29 Unspecified psychosis not due to a substance or known physiological condition; R45.851 Suicidal ideations; R45.850 Homicidal ideations; Z62.810 Personal history of physical and sexual abuse in childhood; Z76.5 Malingerer [conscious simulation]
CPT/HCPCS: 36415; 80053; 80306; 80307; 85025; 97150; 97165; 99285; J9999

== ENCOUNTER 2025-04-21 09:52 | Emergency (ER) | payer MEDICAID, SELFPAY ==
[2025-04-21 09:55] VITALS: BP 111/69; PULSE 97; RESP 17; TEMP 36.5; O2SAT 97; BMI 25.4
--- OUTSIDE RECORDS SUMMARY | 2025-04-21 09:59 | XMS_ITS | Clinical Summary ---
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
[2025-04-21 10:35] LABS: Hematocrit 50.6 % (37-53); Hemoglobin 16.70 g/dL (11.27-16.99); Mean Corpuscular HGB Conc 33.0 g/dL (30-55); Mean Corpuscular Hemoglobin 30.8 pg (27-33); Mean Corpuscular Volume 93.4 fl (82-101); Nucleated Red Blood Cells % 0 %; Platelet Count 148 10^3/cmm (157-399); Red Blood Count 5.42 10^6/uL (3.85-5.65); White Blood Count 14.85 10^3/uL (3.29-11.43)
--- NOTE | 2025-04-21 10:46 | W.ED.NAVMDI ---
HPI - Nausea/Vomiting/Diarrhea General: Chief complaint: Nausea/Vomiting/Diarrhea Stated complaint: N/V Time Seen by Provider: 04/21/25 10:42 Source: patient and EMS Mode of arrival: EMS Limitations: no limitations History of Present Illness: 50-year-old male states that he was exposed to black mold in [facility] yesterday and since then has been having vomiting along with diarrhea. States has had abdominal cramping but denies any pain. States he had multiple episodes of vomiting did receive p.o. Zofran and route states he feels improved after that. He denies any fevers denies any worsening factors Related Data Previous Rx's ?Medication ?Instructions ?Recorded guaifenesin 600 mg tablet, 1,200 mg (2 x 600 mg) PO BID 15 03/31/25 extended release 12 hr (Mucinex) days #60 tabs hydroxyzine pamoate 25 mg capsule 50 mg (2 x 25 mg) PO Q6H PRN 03/31/25 Anxiety 30 days #120 caps paliperidone 6 mg tablet,extended 6 mg PO .@1200 30 days #30 tabs 03/31/25 release 24 hr (Invega) thiamine mononitrate (vit B1) 100 100 mg PO DAILY 30 days #30 tabs 03/31/25 mg tablet (Vitamin B-1 (mononitrate)) ondansetron 4 mg disintegrating 4 mg PO Q6H PRN nausea and 04/21/25 tablet vomiting #14 tabs Allergies Allergy/AdvReac Type Severity Reaction Status Date / Time cashew nut Allergy Severe ALGY-Anaphy Verified 01/23/25 21:43 laxis diazepam (From Valium) Allergy Severe he was in Verified 01/23/25 21:43 a coma Review of Systems GI: Reports: vomiting and diarrhea [facility] ED PFSH: Medical History (Updated 04/21/25 @ 12:00 by Salvador Sofia MD) Psychiatric care Prostatitis, acute Sexual dysfunction BPH (benign prostatic hyperplasia) Smoker Lumbar disc disease with radiculopathy COPD (chronic obstructive pulmonary disease) with chronic bronchitis Hypoxia, sleep related Bronchitis [place] use Bipolar 2 disorder Anxiety Family History Other Cancer Psychiatric illness Social History Smoking and tobacco/nicotine status: heavy tobacco/nicotine user cigarettes Packs smoked per day: 0.5 and smokeless tobacco Smokeless tobacco user: snuff Alcohol intake: current Alcohol intake frequency: holidays/special occasions only Substance/Drug Use: former Marital status: Number of children: 0 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 Current gender identity: Male Physical Exam Const: COMMON NORMALS: no acute distress, patient oriented x3 and healthy appearing HENMT: COMMON NORMALS: normocephalic and atraumatic HEAD & SCALP: normocephalic and atraumatic Eye: COMMON NORMALS: conjunctivae normal CONJUNCTIVA: Yes conjunctivae normal Neck/C-Spine: COMMON NORMALS: full ROM and supple Chest: COMMONS NORMALS: normal inspection of the chest Resp: COMMON NORMALS: normal respiratory effort, No retractions, No use of accessory muscles and clear to auscultation bilaterally AUSCULTATION: clear to auscultation bilaterally Cardio: COMMON NORMALS: regular rate, regular rhythm and No murmurs present (Cardio) RATE: regular rate RHYTHM: regular rhythm GI: COMMON NORMALS: Normal to inspection, nondistended, normoactive bowel sounds present, Soft to palpation, non-tender and no masses PALPATION: Yes Soft to palpation Extremity: COMMON NORMALS: normal to inspection and full ROM Neuro: COMMON NORMALS: patient oriented x3, moves all extremities and no focal motor deficits Psych: COMMON NORMALS: mental status grossly normal, Normal thought process present and cooperative THOUGHT PROCESS: Normal thought process present Skin: COMMON NORMALS: no rashes or lesions noted and no wounds GENERAL SKIN EXAM: no rashes or lesions noted Course Vital Signs: Vital signs: Vital Signs Temperature 97.7 F 04/21/25 09:55 Pulse Rate 97 04/21/25 09:55 Respiratory Rate 17 04/21/25 09:55 Blood Pressure 111/69 04/21/25 09:55 Pulse Oximetry 97 04/21/25 09:55 Oxygen Delivery Me thod Room Air 04/21/25 09:55 MDM - Nausea/Vomiting/Diarrhea Medical Decision Making Patient presents here with vomiting diarrhea differential includes gastritis, bowel obstruction. Patient's lab work showed no significant abnormalities had a mild leukocytosis did perform abdominal CT that showed no acute findings likely gastroenteritis on the CT. Feels improved after Zofran and fluids abdominal exam here is benign he stable for discharge at this time will prescribe Zofran for home use follow-up with PCP and return if worsening he understands agrees to plan. Medical Records I reviewed the patient's medical records. Lab Data I reviewed the patient's lab results. 04/21/25 10:18 04/21/25 10:18 Radiology Impressions Abdomen/Pelvis CT 04/21/25 10:53 IMPRESSION: 1. Mild increased amount of fluid in the small bowel and mild thickening of the ascending colon and hepatic flexure. Favor infectious gastroenteritis as a possible etiology. 2. No GI tract obstruction. 3. Normal appendix. 4. No renal obstruction. 5. Normal-appearing gallbladder. Laboratory Results WBC 14.85 10^3/uL (3.29-11.43) H 04/21/25 10:18 RBC 5.42 10^6/uL (3.85-5.65) 04/21/25 10:18 Hgb 16.70 g/dL (11.27-16.99) 04/21/25 10:18 Hct 50.6 % (37-53) 04/21/25 10:18 MCV 93.4 fl (82-101) 04/21/25 10:18 MCH 30.8 pg (27-33) 04/21/25 10:18 MCHC 33.0 g/dL (30-55) 04/21/25 10:18 RDW 13.5 % (12.1-15.1) 04/21/25 10:18 Plt Count 148 10^3/cmm (157-399) L 04/21/25 10:18 MPV 11.6 fL (7.4-10.4) H 04/21/25 10:18 Neut % (Auto) 91.4 % 04/21/25 10:18 Lymph % (Auto) 4.2 % 04/21/25 10:18 [place] % (Auto) 2.9 % 04/21/25 10:18 Eos % (Auto) 0.9 % 04/21/25 10:18 Baso % (Auto) 0.1 % 04/21/25 10:18 Neut # (Auto) 13.55 10^3/uL (1.8-7.7) H 04/21/25 10:18 Lymph # (Auto) 0.6 10^3/uL (0.8-4.8) L 04/21/25 10:18 [place] # (Auto) 0.4 10^3/uL (0.2-0.9) 04/21/25 10:18 Eos # (Auto) 0.1 10^3/uL (0.0-0.8) 04/21/25 10:18 Baso # (Auto) 0.0 10^3/uL (0.0-0.1) 04/21/25 10:18 Nucleated RBC % (auto) 0 % 04/21/25 10:18 Nucleated RBCs # 0.0 /100WBC 04/21/25 10:18 Sodium 139 mmol/L (136-145) 04/21/25 10:18 Potassium 4.1 mmol/L (3.5-5.1) 04/21/25 10:18 Chloride 100 mmol/L (98-107) 04/21/25 10:18 Carbon Dioxide 27 mmol/L (22-29) 04/21/25 10:18 Anion Gap 16.1 (5-19) 04/21/25 10:18 BUN 15 mg/dL (6-20) 04/21/25 10:18 Creatinine 0.8 mg/dL (0.7-1.2) 04/21/25 10:18 GFR Calculation 102.3 mL/min (90-130) 04/21/25 10:18 Glucose 106 mg/dL (65-115) 04/21/25 10:18 Calculated Osmolality 289 mOsm/kg (285-295) 04/21/25 10:18 Calcium 9.3 mg/dL (8.5-10.5) 04/21/25 10:18 Total Bilirubin 0.6 mg/dL (0.15-1.2) 04/21/25 10:18 AST 22 U/L (0-40) 04/21/25 10:18 ALT 22 U/L (0-41) 04/21/25 10:18 Alkaline Phosphatase 96 U/L (40-130) 04/21/25 10:18 Total Protein 7.8 g/dL (6.6-8.7) 04/21/25 10:18 Albumin 4.5 g/dL (3.5-5.2) 04/21/25 10:18 Globulin 3.3 g/dL (1.3-4.6) 04/21/25 10:18 Lipase 34 U/L (13-60) 04/21/25 10:18 All radiology interpretation(s) finalized by discharge Discharge Plan Discharge Patient Disposition: Home Clinical Impression: Nausea, vomiting and diarrhea Condition: Stable Prescriptions: New ondansetron 4 mg tablet,disintegrating 4 mg PO Q6H PRN (Reason: nausea and vomiting) Qty: 14 0RF No Action hydroxyzine pamoate 25 mg Capsule 50 mg PO Q6H PRN (Reason: Anxiety) 30 Days Qty: 120 1RF guaifenesin [Mucinex] 600 mg Tablet Extended Release 12hr 1,200 mg PO BID 15 Days Qty: 60 1RF paliperidone [Invega] 6 mg tablet extended release 24hr 6 mg PO .@1200 30 Days Qty: 30 1RF thiamine mononitrate (vit B1) [Vitamin B-1 (mononitrate)] 100 mg Tablet 100 mg PO DAILY 30 Days Qty: 30 1RF Discharge Orders: Discharge ED (Routine); Ordered 04/21/25 Ordered By: Salvador Sofia Discharge Diet: Advance as tolerated Discharge Activity: Resume usual activity Patient Instructions: Acute Nausea and Vomiting (ED) Print Language: Northern Irish Coding Level of Care Code ED [employer] for Ghanshyam Nathan
[2025-04-21 10:49] LABS: Slide Review Slide Review Perform
--- NOTE | 2025-04-21 10:53 | CT_ITS ---
WS: [id number] CT ABDOMEN AND PELVIS WITH CONTRAST HISTORY: vomiting TECHNIQUE: Imaging performed of the abdomen and pelvis with IV contrast. Single phase imaging of the abdomen. Coronal and sagittal reformats are submitted. All CT scans at [facility] use at least one of these dose optimization techniques: automated exposure control; mA and/or kV adjustment per patient size (includes targeted exams where dose is matched to clinical indication); or iterative reconstruction. IV CONTRAST: Omnipaque 350; 100 mL IV. Oral contrast: No DLP: 542.46 mGy.cm COMPARISON: 03/14/2020 Lower thorax: Lung bases are clear. Heart is normal size. Small hiatal hernia. Liver/biliary system: Normal size with no intrahepatic dilatation. Gallbladder: Normal. No gallstones or wall thickening. No pericholecystic fluid. Pancreas: Normal size pancreas and pancreatic duct. No adjacent inflammation. Spleen: Normal size with granuloma. Adrenal glands: Normal. Right kidney: Normal. Left kidney: Normal. Aorta: Mild atherosclerosis with no aneurysm. Celiac axis is very mildly ectatic but similar to the prior study. Lymphadenopathy: None. Free fluid: None. GI tract: No obstruction. Normal appendix. There is a small amount of increased fluid in the small bowel but no wall thickening or enhancement. Mild enhancement in the ascending colon and the hepatic flexure. Mildly shaggy appearance of the proximal colon submucosa. Abdominal wall: Unremarkable abdominal wall. No hernia. Pelvis: No free fluid or adenopathy within the pelvis. Prominent seminal vesicles. No abscess or inflammation. Bones: Unremarkable. CT/CT abdomen pelvis w con* [id number] IMPRESSION: 1. Mild increased amount of fluid in the small bowel and mild thickening of th e ascending colon and hepatic flexure. Favor infectious gastroenteritis as a po ssible etiology. 2. No GI tract obstruction. 3. Normal appendix. 4. No renal obstruction. 5. Normal-appearing gallbladder.
[2025-04-21 10:55] LABS: Alanine Aminotransferase 22 U/L (0-41); Albumin Level 4.5 g/dL (3.5-5.2); Alkaline Phosphatase 96 U/L (40-130); Anion Gap 16.1 (5-19); Aspartate Amino Transferase 22 U/L (0-40); Blood Urea Nitrogen 15 mg/dL (6-20); Calcium 9.3 mg/dL (8.5-10.5); Carbon Dioxide 27 mmol/L (22-29); Chloride 100 mmol/L (98-107); Globulin 3.3 g/dL (1.3-4.6); Glucose 106 mg/dL (65-115); Lipase 34 U/L (13-60); Osmolality Calculated 289 mOsm/kg (285-295); Potassium 4.1 mmol/L (3.5-5.1); Sodium 139 mmol/L (136-145); Total Protein 7.8 g/dL (6.6-8.7)
[2025-04-21] MEDS: ondansetron 2 mg/ML SDV 2 mL 4 MG IVP (11:19)
[2025-04-21] MEDS: iohexol 350 mg/mL 500 mL Btl (per mL) IV (11:32)
--- NOTE | 2025-04-21 11:44 | PC.PHAR ---
Patient states he hasn't taken his medication in over a week and half . Patient state when travels he doesn't take his medication with him .
[2025-04-21 12:33] VITALS: PULSE 81; O2SAT 99
== END 2025-04-21 12:37 | disposition home or self-care (01) ==
PROVIDERS: Emergency Provider Emergency Medicine
DX: R11.2 Nausea with vomiting, unspecified (principal); R19.7 Diarrhea, unspecified; F17.210 Nicotine dependence, cigarettes, uncomplicated; J44.9 Chronic obstructive pulmonary disease, unspecified
CPT/HCPCS: 36415; 74177; 80053; 83690; 85025; 96374; 99285; J2405; J7030; J9999